=== PATIENT | female | born 2000 | race Caucasian/White ===

== ENCOUNTER 2020-07-23 09:24 | Emergency (ER) | payer OTHER, SELFPAY ==
--- NOTE | 2020-07-23 10:16 | XR_ITS ---
EXAMINATION: LEFT ANKLE, LUMBAR SPINE, RIGHT WRIST, RIGHT ELBOW. CLINICAL INFORMATION: Atraumatic pain COMPARISON: None TECHNIQUE: Three-view lumbar spine. Three-view left ankle. Three-view right elbow. 4 view right hand and wrist. FINDINGS: 3 views of the left ankle do not demonstrate any evidence of acute fracture or dislocation. Ankle mortise appears intact. There is some mild soft tissue swelling about the lateral malleolus. 3 views of the right elbow do not demonstrate any evidence of acute fracture or dislocation. No elbow effusion is seen. No significant degenerative changes noted. 3 views of the lumbar spine demonstrate 5 nonrib bearing lumbar vertebra. No acute fracture, spondylolisthesis, or spondylolysis is seen. Sacroiliac joints unremarkable. There is no evidence of acute fracture or dislocation of the right hand or wrist. No periarticular osteopenia. No erosive changes. No joint space narrowing or spurring. XR/XR lumbar spine 4V min IMPRESSION: No significant abnormality of the left ankle, right elbow, lumbar spine, or right hand and wrist.
--- NOTE | 2020-07-23 10:16 | XR_ITS ---
EXAMINATION: LEFT ANKLE, LUMBAR SPINE, RIGHT WRIST, RIGHT ELBOW. CLINICAL INFORMATION: Atraumatic pain COMPARISON: None TECHNIQUE: Three-view lumbar spine. Three-view left ankle. Three-view right elbow. 4 view right hand and wrist. FINDINGS: 3 views of the left ankle do not demonstrate any evidence of acute fracture or dislocation. Ankle mortise appears intact. There is some mild soft tissue swelling about the lateral malleolus. 3 views of the right elbow do not demonstrate any evidence of acute fracture or dislocation. No elbow effusion is seen. No significant degenerative changes noted. 3 views of the lumbar spine demonstrate 5 nonrib bearing lumbar vertebra. No acute fracture, spondylolisthesis, or spondylolysis is seen. Sacroiliac joints unremarkable. There is no evidence of acute fracture or dislocation of the right hand or wrist. No periarticular osteopenia. No erosive changes. No joint space narrowing or spurring. XR/XR elbow RT min 3V IMPRESSION: No significant abnormality of the left ankle, right elbow, lumbar spine, or right hand and wrist.
--- NOTE | 2020-07-23 10:16 | XR_ITS ---
EXAMINATION: LEFT ANKLE, LUMBAR SPINE, RIGHT WRIST, RIGHT ELBOW. CLINICAL INFORMATION: Atraumatic pain COMPARISON: None TECHNIQUE: Three-view lumbar spine. Three-view left ankle. Three-view right elbow. 4 view right hand and wrist. FINDINGS: 3 views of the left ankle do not demonstrate any evidence of acute fracture or dislocation. Ankle mortise appears intact. There is some mild soft tissue swelling about the lateral malleolus. 3 views of the right elbow do not demonstrate any evidence of acute fracture or dislocation. No elbow effusion is seen. No significant degenerative changes noted. 3 views of the lumbar spine demonstrate 5 nonrib bearing lumbar vertebra. No acute fracture, spondylolisthesis, or spondylolysis is seen. Sacroiliac joints unremarkable. There is no evidence of acute fracture or dislocation of the right hand or wrist. No periarticular osteopenia. No erosive changes. No joint space narrowing or spurring. XR/XR ankle LT min 3V IMPRESSION: No significant abnormality of the left ankle, right elbow, lumbar spine, or right hand and wrist.
--- NOTE | 2020-07-23 10:16 | XR_ITS ---
EXAMINATION: LEFT ANKLE, LUMBAR SPINE, RIGHT WRIST, RIGHT ELBOW. CLINICAL INFORMATION: Atraumatic pain COMPARISON: None TECHNIQUE: Three-view lumbar spine. Three-view left ankle. Three-view right elbow. 4 view right hand and wrist. FINDINGS: 3 views of the left ankle do not demonstrate any evidence of acute fracture or dislocation. Ankle mortise appears intact. There is some mild soft tissue swelling about the lateral malleolus. 3 views of the right elbow do not demonstrate any evidence of acute fracture or dislocation. No elbow effusion is seen. No significant degenerative changes noted. 3 views of the lumbar spine demonstrate 5 nonrib bearing lumbar vertebra. No acute fracture, spondylolisthesis, or spondylolysis is seen. Sacroiliac joints unremarkable. There is no evidence of acute fracture or dislocation of the right hand or wrist. No periarticular osteopenia. No erosive changes. No joint space narrowing or spurring. XR/XR hand wrist RT IMPRESSION: No significant abnormality of the left ankle, right elbow, lumbar spine, or right hand and wrist.
--- NOTE | 2020-07-23 11:07 | ED.GENADULT ---
HPI - General Adult General Chief complaint: General Medical Stated complaint: back,rt arm and hand pain,no inj Time Seen by Provider: 07/23/20 10:06 Source: patient Mode of arrival: ambulatory Limitations: language barrier ( [place]an-speaking) History of Present Illness HPI narrative: 19yoF c No Sig PMHx presenting to the ED c c/o atraumatic lower back pain, right hand pain with intermittent numbness especially when she wakes up in the morning radiating intermittently to her elbow although denies any injuries. 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 Denies any other symptoms complaints or concerns at this time. Related Data Previous Rx's Medication Instructions Recorded cyclobenzaprine 10 mg PO TID PRN #10 tab 07/23/20 naproxen 500 mg PO BID PRN #10 tab 07/23/20 prednisone 40 mg PO DAILY 5 Days #10 tab 07/23/20 Allergies Allergy/AdvReac Type Severity Reaction Status Date / Time No Known Allergies Allergy Verified 07/23/20 10:16 Review of Systems Review of Systems: Constitutional : No trauma, No Weight loss, No Fever, No Chills, ENT/Mouth : No Hearing loss, No Ear Pain, No Nasal Congestion, No Sinus Pain, No Hoarseness, No sore throat, No Rhinorrhea, No Swallowing Difficulty Cardiovascular : No Chest Pain, No SOB Respiratory : No Cough, No Dyspnea Gastrointestinal : No Nausea, No Vomiting, No Diarrhea, No abdominal Pain, No Hematochezia, No Melena Genitourinary : No Dysuria, No Urinary Frequency, No Hematuria, No Urinary or Bowel Incontinence/retention Musculoskeletal : + Back pain, No neck pain, + joint stiffness/pain, No joint swelling Skin : No Skin Lesions, No rash or signs of infection Neuro : No Weakness, No radiation, No Numbness, No Paresthesias, No headache, no loss of bowel or bladder incontinence, no saddle anesthesia Denies history of IV drug usage. Yes all other systems are reviewed and are negative PMFSH Past Medical History Attestation statement: The following information was validated with the patient. Social History Social History Advance Directives: No Advance Directives Information Provided: No Physical Exam Vital Signs: Vital Signs: Last Vital Signs Temp 97.0 F 07/23/20 11:16 Pulse 80 07/23/20 11:16 Resp 18 07/23/20 11:16 BP 118/54 L 07/23/20 11:16 Pulse Ox 99 07/23/20 11:16 Body Mass Index 40.4 vital signs have been reviewed as normal and appeared to be correct. Blood pressure normal. Heart rate normal. Respiration rate normal. Temperature normal. Oxygen saturation normal. Appearance: Alert. Oriented X3. No acute distress. Head: Normal external exam. Normocephalic. Atraumatic. No De La Cruz signs noted. No raccoon eyes noted Eyes: PERRLA. EOMI. Conjunctiva and sclera normal. Eyelids normal. ENT: EAC normal. TM's Normal. Pharynx normal. Uvula midline. Moist mucous membranes. No trismus noted. No drooling noted. No muffled voice noted. Neck: Normal inspection. Neck supple. FROM. No adenopathy. Thyroid Normal. No meningeal signs. No neck mass noted. CVS: Normal heart rate and rhythm. Heart sound normal. No murmurs noted. Pulses normal throughout. Respiratory: No respiratory distress. Painless inspiration. Breath sounds normal. No wheezes/rales/rhonchi noted. Chest nontender. No accessory muscle usage noted or decreased air movement noted. Back: No CVA tenderness. Full range of motion noted. No obvious deformities, or edema. Mild para-spinal muscular tenderness from lumbar region to coccyx. Full ROM in back and lower extremities. 5/5 strength hip extension/flexion, abduction, adduction. Mild Lumbar pain with hip flexion against resistance. Straight leg raise test negative on right; Straight leg raise test negative on left; Reflexes normal ankle and knee bilaterally; EHL motor strength normal bilaterally Skin: Skin warm and dry. Normal skin color. Normal skin turgor. No rashes/lesions/lacerations noted. Extremities: + Tinels's, Prayer's sign and ttp of Right wrist. Patient has full range of motion. No obvious deformities. tender to palpation of lateral aspect of left ankle patient has full range of motion no obvious deformities. Patient has a normal steady gait. No lower extremity edema. All other Extremities exhibit normal range of motion and nontender. Neuro: Oriented X 3. No motor deficit. No sensory deficit. Reflexes normal. Course Course Course Narrative: Pt c likely muscular pain to lower back and carpal tunnel syndrome, but could be herniated disc. Neuro exam shows no deficits. Not c/w AAA/epidural abscess/dissection.No high risk Hx (Incont, fever, immunosupp, recent surgery/LP, coag, signif trauma, wt loss, puls mass, hx/o Ca, TB, or IVDU) to warrant MRI/CT today. Not c/w Pyelo/UTI/kidney stone/spinal fx. Not cauda equina syndrome. DC c meds and f/u. Reevaluation(s) Reevaluation #1: X-rays obtained and negative for any acute processes noted. Will DC home with symptomatic treatment patient reporting that she would like to be tested for COVID although she is not having any symptoms reports that she works at [employer] and at another place that she is exposed to multiple people although again she does not have any symptoms. I told the patient we will test her and to return if any new or worsening symptoms. Patient understands agrees the plan. Time: 12:07 Medical Decision Making Medical Records Medical records reviewed: Yes I reviewed the patient's medical records. Imaging Data lumbar spine/left ankle / right hand wrist: Attestation: I personally reviewed and interpreted this imaging study as follows: Radiologist's impression: IMPRESSION: No significant abnormality of the left ankle, right elbow, lumbar spine, or right hand and wrist. Discharge Plan Discharge Clinical Impression: Lumbar back pain, Muscle strain Left ankle strain Qualifiers: Encounter type: initial encounter Qualified Code(s): S96.912A - Strain of unspecified muscle and tendon at ankle and foot level, left foot, initial encounter Acute carpal tunnel syndrome Qualifiers: Laterality: right Qualified Code(s): G56.01 - Carpal tunnel syndrome, right upper limb Patient Disposition: Home, Self-Care Instructions: Ankle Sprain (ED), Muscle Spasm (ED), Carpal Tunnel Surgery (DC) Additional Instructions: Based on your symptoms and history we have sent a COVID-19. Although your RESULT IS PENDING at this time. RESULTS should return within 72 hours. At this time you will be contacted with either NEGATIVE OR POSITIVE results. -Please wait until we contact you for your results. At this time you will be okay for discharge. Please plan for self quarantine for up to 14 days. Do not expose yourself to others. You may not go to work. If testing does come back negative you may return to activities as long as you are no longer having any symptoms for at least 3 days. Please continue to follow cold instructions and wash your hands frequently. You may take Tylenol as directed on the bottle for pain or fever. Patient seen in the emergency department on 07/23/2020 and should be excused from work until negative test results AND until 72 hours without any symptoms AND at least 10 days have passed since symptoms first appeared or since last exposure to COVID-19 positive patient CDC Guidelines for home isolation: - Stay away from others - WEAR A MASK if you are sick AND STAY HOME - Cover your mouth and nose with a tissue when you cough or sneeze. Dispose of tissues in a lined trash can and wash your hands immediately with soap and water for at least 20 seconds. If soap and water are not available, clean hands with alcohol-based hand special forces engineer sergeant that contains at least 60% alcohol. - Clean your hands often with soap and water for at least 20 seconds - Avoid touching your eyes, nose and mouth with unwashed hands - Do not share dishes, drinking glasses, cups, eating utensils, towels, or bedding with other people in your home. After using these items, wash them thoroughly with soap and water or put in the program director/morning show host. - Clean high-touch surfaces in your isolation area ( sick room and bathroom) every day; let a caregiver clean and disinfect high-touch surfaces in other areas of the home. Clean the area or item with soap and water or another detergent if it is dirty. Then, use a household disinfectant. - Limit contact with pets and animals: If you must care for a pet, wash your hands before and after interacting with them). Prescriptions: New cyclobenzaprine 10 mg tablet 10 mg PO TID PRN (Reason: muscle spasm) Qty: 10 RF: 0 prednisone 20 mg tablet 40 mg PO DAILY 5 Days Qty: 10 RF: 0 naproxen 500 mg tablet 500 mg PO BID PRN (Reason: pain) Qty: 10 RF: 0 Referrals: Physician,Unknown [Primary Care Provider] - 2 days (your pcp) Stand Alone Forms: Work/School Release Print Language: [place]
[2020-07-23 11:16] VITALS: BP 118/54; PULSE 80; RESP 18; TEMP 36.1; O2SAT 99; BMI 40.4
== END 2020-07-23 12:15 | disposition home or self-care (01) ==
PROVIDERS: Physician Assistant Medical; Emergency Provider Emergency Medicine
DX: M54.5 Low back pain (principal); S96.912A Strain of unspecified muscle and tendon at ankle and foot level, left foot, initial encounter; X58.XXXA Exposure to other specified factors, initial encounter; Z20.828 Contact with and (suspected) exposure to other viral communicable diseases; G56.01 Carpal tunnel syndrome, right upper limb; Y93.9 Activity, unspecified; Y92.9 Unspecified place or not applicable; Y99.9 Unspecified external cause status
CPT/HCPCS: 72110; 73080; 73110; 73130; 73610; 99283; U0003

== ENCOUNTER 2020-09-04 14:59 | Outpatient (REF) | payer OTHER, SELFPAY ==
[2020-09-04 16:37] LABS: MANUAL DIFF FLAG NO
[2020-09-04 16:40] LABS: Basophils Percent Auto 0.4 % (0-2); Eosinophils Absolute Auto 0.2 X10*3/uL (0.0-0.4); Eosinophils Percent Auto 2.9 % (0-4); Hematocrit 42.6 % (37-47); Hemoglobin 13.8 g/dl (12.0-16.0); Imm Gran Abs Auto 0.01 X10*3/uL (0.00-0.03); Imm Gran Pct Auto 0.1 % (0.0-0.4); Lymphocytes Absolute Auto 2.9 X10*3/uL (1.2-4.9); Lymphocytes Percent Auto 42.4 % (20-40); Mean Corpuscular HGB Conc 32.4 g/dl (31.0-35.0); Mean Corpuscular Hemoglobin 28.2 pg (27.0-33.0); Mean Corpuscular Volume 87.1 fL (80-98); Mean Platelet Volume 10.4 fL (9.4-12.3); Monocytes Absolute Auto 0.4 X10*3/uL (0.1-1.2); Monocytes Percent Auto 6.3 % (2-11); Neutrophils Absolute Auto 3.3 X10*3/uL (2.0-8.3); Neutrophils Percent Auto 47.9 % (45-73); Platelet Count 398 X10*3/uL (160-400); Red Blood Count 4.89 X10*6/uL (4.20-5.50); Red Cell Distribution Width 12.9 % (11.0-16.0); White Blood Count 6.8 X10*3/uL (4.8-10.8)
[2020-09-04 17:31] LABS: Alanine Aminotransferase 22 U/L (0-31); Albumin Level 4.3 g/dL (3.5-5.0); Alkaline Phosphatase 54 U/L (39-117); Anion Gap 15 (12-20); Aspartate Amino Transferase 23 U/L (5-31); Bilirubin Total 0.4 mg/dL (0.0-1.0); Blood Urea Nitrogen 13 mg/dL (9-16); Calcium 9.1 mg/dL (8.4-10.2); Carbon Dioxide 24 mmol/L (22-29); Chloride 104 mmol/L (96-108); Cholesterol 203 mg/dL; Estimated Glomerular Filt Rate > 60; Glucose Fasting 83 mg/dL (60-99); HDL Cholesterol 41 mg/dL; LDL Cholesterol Calculated 141 mg/dl; Potassium 4.2 mmol/l (3.3-5.1); Sodium 139 mmol/L (135-145); Total Protein 7.9 g/dL (6.5-8.0); Triglycerides 109 mg/dL
[2020-09-04 17:43] LABS: TSH reflex Free T4 0.67 mIU/mL (0.32-4.0); Vitamin D 25-OH Total 18.9 ng/mL (>30)
== END 2020-09-04 15:00 | disposition home or self-care (01) ==
LOC: HO.HMGCLDS 14:59
PROVIDERS: PCP Internal Medicine; Visit Provider Internal Medicine
DX: Z00.01 Encounter for general adult medical examination with abnormal findings (principal); N64.89 Other specified disorders of breast; E66.01 Morbid (severe) obesity due to excess calories
CPT/HCPCS: 36415; 80053; 80061; 82306; 84443; 85025

== ENCOUNTER → 2020-11-26 10:53 | Outpatient (BNVA) | payer OTHER, SELFPAY | PROVIDERS: PCP Internal Medicine; Visit Provider Dietitian, Registered | DX: E66.01 Morbid (severe) obesity due to excess calories (principal) | CPT/HCPCS: 97802 ==

== ENCOUNTER → 2020-12-24 08:49 | Outpatient (BNVA) | payer OTHER, SELFPAY | PROVIDERS: PCP Internal Medicine; Visit Provider Dietitian, Registered | DX: E66.01 Morbid (severe) obesity due to excess calories (principal) | CPT/HCPCS: 97803 ==

== ENCOUNTER → 2021-01-28 09:51 | Outpatient (BNVA) | payer OTHER, SELFPAY | PROVIDERS: PCP Internal Medicine; Visit Provider Dietitian, Registered | DX: E66.01 Morbid (severe) obesity due to excess calories (principal); Z68.41 Body mass index [BMI] 40.0-44.9, adult | CPT/HCPCS: 97803 ==

== ENCOUNTER → 2021-02-25 12:36 | Outpatient (BNVA) | payer OTHER, SELFPAY | PROVIDERS: PCP Internal Medicine; Visit Provider Dietitian, Registered | DX: E66.01 Morbid (severe) obesity due to excess calories (principal); Z68.38 Body mass index [BMI] 38.0-38.9, adult | CPT/HCPCS: 97803 ==

== ENCOUNTER 2021-05-06 03:53 | Emergency (ER) | payer OTHER, SELFPAY ==
--- NOTE | ~2021-05-06 | CT_ITS ---
EXAMINATION: CT ABDOMEN AND PELVIS WITHOUT CONTRAST CLINICAL INFORMATION: Trauma to upper abdomen COMPARISON: None TECHNIQUE: Multidetector volumetric imaging was performed from the superior aspect of the liver through the pubic symphysis. Sagittal and coronal reformatted images were obtained on the technologist's workstation. This CT examination was performed using dose optimization techniques as appropriate, variously including the following: *Automated exposure control *Adjustment of mA and/or kV according to patient size (this includes techniques or standardized protocols for targeted exams where dose is matched to indication/reason for exam; i.e. extremities or head) *Use of iterative reconstruction technique DLP: 826 mGy-cm FINDINGS: LUNG BASES: The visualized lung bases are unremarkable. LIVER, GALLBLADDER, AND BILIARY TREE: The liver is normal in size, shape, and attenuation. No focal hepatic lesion or biliary ductal dilatation is present. The gallbladder appears partially contracted. PANCREAS: Unremarkable. SPLEEN: Unremarkable. ADRENAL GLANDS: Unremarkable. KIDNEYS AND URETERS: The kidneys are normal in size, shape, and attenuation. No hydronephrosis, hydroureter, or calculi seen. No perinephric stranding. BLADDER: Nearly empty and not well evaluated. GASTROINTESTINAL TRACT: The small and large bowel are unremarkable. The appendix is unremarkable. No free fluid or free air is seen. ABDOMINAL WALL: No significant hernia is appreciated. LYMPH NODES: Normal. VASCULAR: Unremarkable. PELVIC VISCERA: There is suggestion of a nabothian cyst. OSSEOUS STRUCTURES: Unremarkable. CT/CT abdomen pelvis wo con IMPRESSION: No acute findings identified in the abdomen/pelvis.
[2021-05-06 04:02] VITALS: BP 105/55; PULSE 70; RESP 16; TEMP 35.8; O2SAT 99; BMI 39.9
--- NOTE | 2021-05-06 04:30 | ED.ABDPAIN ---
HPI - Abdominal Pain General Chief Complaint: Abdominal Pain Stated Complaint: abd pain Time Seen by Provider: 05/06/21 04:28 Source: patient and family (Spouse) Mode of arrival: ambulatory Limitations: no limitations History of Present Illness HPI narrative: 20-year-old female came in for evaluation of abdominal pain after heavy box fell on her abdomen at work, patient is complaining of mostly upper abdominal pain, no nausea no vomiting, no dizziness. No other injuries pain has been constant described as dull aching pain, moderate 7/10, movement aggravating the pain, nothing relieves the pain, no other associated symptoms. Related Data Previous Rx's Medication Instructions Recorded naproxen 500 mg tablet 500 mg PO BID PRN #10 tab 07/23/20 cholecalciferol (vitamin D3) 1,250 1,250 mcg PO QWEEK 90 Days #13 cap 09/05/20 mcg (50,000 unit) capsule Allergies Allergy/AdvReac Type Severity Reaction Status Date / Time No Known Allergies Allergy Verified 09/09/20 23:44 Review of Systems Review of Systems All other systems are reviewed and are negative Constitutional: Reports as per HPI and Reports no additional constitutional complaints Eyes: Reports as per HPI and Reports no additional eye complaints Reports system reviewed and no additional complaints, except as documented Cardiovascular: Reports as per HPI and Reports no additional cardiovascular complaints Respiratory: Reports as per HPI and Reports no additional respiratory complaints Gastrointestinal: Reports as per HPI and Reports no additional gastrointestinal complaints Genitourinary: Reports no additional female genitourinary complaints Musculoskeletal: Reports no additional musculoskeletal complaints Skin/Breast: Reports system reviewed and no additional complaints, except as docu Psychiatric: Reports no additional psychiatric complaints Endocrine: Reports no additional endocrine complaints Hematologic/Lymphatic: Reports no additional hematologic/lymphatic complaints Allergic/Immunologic: Reports no additional allergic/immunologic complaints Reports system reviewed and no additional complaints, except as documented and Reports Abnormal speech present Physical Exam Vital Signs: Vital Signs: Last Vital Signs Temp 96.5 F L 05/06/21 04:02 Pulse 70 05/06/21 04:02 Resp 16 05/06/21 04:02 BP 105/55 L 05/06/21 04:02 Pulse Ox 99 05/06/21 04:02 Body Mass Index 39.9 Vital signs have been reviewed as appeared to be correct. Blood pressure normal. Heart rate normal. Respiration rate normal. Temperature normal. Oxygen saturation normal. Appearance: Alert. Oriented X3. No acute distress. Head: Normal external exam. Normocephalic. Atraumatic. No De La Cruz signs noted. No raccoon eyes noted Eyes: PERRLA. EOMI. Conjunctiva and sclera normal. Eyelids normal. ENT: TM's Normal. Pharynx normal. Uvula midline. Moist mucous membranes. No trismus noted. No drooling noted. No muffled voice noted. Neck: Normal inspection. Neck supple. FROM. No adenopathy. Thyroid Normal. No meningeal signs. No neck mass noted. CVS: Normal heart rate and rhythm. Heart sound normal. No murmurs noted. Pulses normal throughout. Respiratory: No respiratory distress. Painless inspiration. Breath sounds normal. No wheezes/rales/rhonchi noted. Chest nontender. No accessory muscle usage noted or decreased air movement noted. Abdomen: Soft, epigastric tenderness noon, no rebound, no guarding, no ecchymosis. Bowel sounds normal in all 4 quadrants. No distention noted. No organomegaly noted. No visible injury noted. Back: No CVA tenderness. Full range of motion noted. Skin: Skin warm and dry. Normal skin color. Normal skin turgor. No rashes/lesions/lacerations noted. Extremities: No lower extremity edema. Extremities exhibit normal range of motion. Extremities nontender. Neuro: Oriented X 3. Cranial nerve exam: II-XII are grossly intact No motor deficit. No sensory deficit. Reflexes normal. Course Course Course Narrative: Assessment and plan. 20-year-old female came in for evaluation of abdominal pain after abdominal trauma at work, CT of the abdomen pelvis show no intra-abdominal hematoma, patient was instructed to take Tylenol if needed for pain. MDM - Abdominal Pain Lab Data Attestation: I reviewed the patient's lab results. Labs: Lab Results 05/06/21 05/06/21 Range/Units 04:34 04:34 Urine Color YELLOW Urine Appearance CLEAR Urine pH 6.0 (5.0-8.0) Ur Specific [place] >= 1.030 H (1.005-1.025) Urine Protein NEG (NEG-TRACE) MG/DL Urine Glucose (UA) NEG (NEG) MG/DL Urine Ketones NEG (NEG) MG/DL Urine Blood NEG (NEG) Urine Nitrite NEG (NEG) Ur Leukocyte Esterase NEG (NEG) Urine Test NEGATIVE (NEGATIVE) Imaging Data CT scan - abdomen: Radiologist's impression: No acute finding identified. Discharge Plan Discharge Clinical Impression: Abdominal pain Qualifiers: Abdominal location: upper abdomen, unspecified Qualified Code(s): R10.10 - Upper abdominal pain, unspecified Abdominal trauma Qualifiers: Encounter type: initial encounter Qualified Code(s): S39.91XA - Unspecified injury of abdomen, initial encounter Patient Disposition: Home, Self-Care Instructions: Blunt Abdominal Injury (ED) Prescriptions: No Action cholecalciferol (vitamin D3) 1,250 mcg (50,000 unit) capsule 1,250 mcg PO QWEEK 90 Days Qty: 13 RF: 0 naproxen 500 mg tablet 500 mg PO BID PRN (Reason: pain) Qty: 10 RF: 0 Referrals: Physician,Unknown [Primary Care Provider] - 2 days Stand Alone Forms: Work/School Release PMFSH Past Medical History Medical History Breast asymmetry in female Large breasts Lumbago Morbid obesity Vitamin D deficiency Family History Family History Father Diabetes Hypertension Paternal Grandfather Hypertension Mother Hypertension Asthma Hyperparathyroidism Hypothyroid Bipolar disorder Social History Social History Alcohol intake: current Substance Use Type: Marijuana Advance Directives: No
[2021-05-06 04:40] LABS: Appearance Urine CLEAR; Color Urine YELLOW; Glucose Urine UA NEG (NEG); Leukocyte Esterase Urine NEG (NEG); Nitrite Urine NEG (NEG); Specific Gravity - Urine >= 1.030 (1.005-1.025); Urine Blood NEG (NEG); Urine Ketones NEG (NEG); Urine Protein NEG (NEG-TRACE)
[2021-05-06 04:42] LABS: UPreg QC Valid YES; Urine Pregnancy NEGATIVE (NEGATIVE)
== END 2021-05-06 07:00 | disposition home or self-care (01) ==
LOC: HO.ED 04:55
PROVIDERS: Emergency Provider Emergency Medicine
DX: S39.91XA Unspecified injury of abdomen, initial encounter (principal); R10.10 Upper abdominal pain, unspecified; F12.90 Cannabis use, unspecified, uncomplicated; Y29.XXXA Contact with blunt object, undetermined intent, initial encounter; Y93.9 Activity, unspecified; Y92.9 Unspecified place or not applicable; Y99.9 Unspecified external cause status; Z79.899 Other long term (current) drug therapy
CPT/HCPCS: 74176; 81003; 81025; 99283; 99284

== ENCOUNTER 2021-08-16 11:56 | Emergency (ER) | payer OTHER, SELFPAY ==
[2021-08-16 12:35] LABS: COVID-19 Test Positive (Negative); IDNOW Serial# 08D9AD1C
--- NOTE | 2021-08-16 12:39 | ED_ITS ---
HPI - URI/Sore Throat General Stated Complaint: cough/fever/body pain Time Seen by Provider: 08/16/21 12:38 Source: patient Mode of arrival: ambulatory Limitations: no limitations History of Present Illness HPI Narrative: This is a 20-year-old female no known medical history presenting to the emergency department with fever, cough, body aches, nasal congestion X1 week. She has been taking NyQuil for symptoms and Tylenol. She reports that multiple family members at home are sick with similar symptoms. Patient is not vaccinated MD elicited complaint: fever, cough, nasal congestion and other (Body aches) Onset (ago): week(s) (1) Consistency: constant Severity: moderate Able to tolerate fluids by mouth: Yes Exacerbating factors: nothing Relieving factors: nothing Context: sick contacts (Multiple family members at home.) Associated symptoms: fever and nasal congestion Treatments prior to arrival: none Related Data Previous Rx's Medication Instructions Recorded naproxen 500 mg tablet 500 mg PO BID PRN #10 tab 07/23/20 cholecalciferol (vitamin D3) 1,250 1,250 mcg PO QWEEK 90 Days #13 cap 09/05/20 mcg (50,000 unit) capsule Allergies Allergy/AdvReac Type Severity Reaction Status Date / Time No Known Allergies Allergy Verified 08/16/21 12:48 Review of Systems Review of Systems: Constitutional : positive Fever, positive Chills, positive fatigue, positive Malaise ENT/Mouth : No sore throat, No runny nose Eyes: No Discharge Cardiovascular : No Chest Pain, No SOB Respiratory : No Cough, No Sputum Gastrointestinal : No Nausea, No Vomiting, No Diarrhea Genitourinary : No Dysuria, No Urinary Frequency Musculoskeletal : positive Myalgia Skin : No rash Neuro : No Headache Yes all other systems are reviewed and are negative [facility] Past Medical History Attestation statement: The following information was validated with the patient. Source: old records reviewed and nursing notes reviewed Medical History Breast asymmetry in female Large breasts Lumbago Morbid obesity Vitamin D deficiency Family History Family History Father Diabetes Hypertension Paternal Grandfather Hypertension Mother Hypertension Asthma Hyperparathyroidism Hypothyroid Bipolar disorder Social History Social History Alcohol intake: current Substance Use Type: Marijuana Physical Exam Vital Signs: Vital Signs: VSS Appearance: Alert.? Oriented X3.? No acute distress.? Head: Normocephalic, atraumatic, no step-offs or deformities Eyes: Pupils equal, round and reactive to light.? ENT: Pharynx normal.? Neck: Normal inspection.? Neck supple.? CVS: Normal heart rate and rhythm.? Pulses normal.? Respiratory: No respiratory distress.? Breath sounds normal.? Abdomen: Soft and nontender.? Skin: Skin warm and dry.? Normal skin color.? Normal skin turgor.? Extremities: No lower extremity edema.? No calf ttp. 5/5 strength to bilateral upper and lower extremities Back: No midline tenderness, no C-spine tenderness, full range of motion, no CVA tenderness bilaterally Neuro: Oriented X 3.? No motor deficit.? No sensory deficit. Course Reevaluation(s) Reevaluation #1: Patient is noted to be COVID positive, which is likely contributing to patient's symptoms. At this time I feel is the patient is safe for discharge home. I have given her strict return precautions. Have advised her to return with new or worsening symptoms and I have outlined them on her discharge. Comfortable discharge Time: 12:43 MDM - URI/Sore Throat MDM Narrative Medical decision making narrative: 1242 20-year-old female no known medical history presents to the emergency department with COVID like symptoms x1 week. Patient is not vaccinated. Patient is not a smoker. Physical examination benign. Vital signs stable. Saturating well on room air. Even after ambulation. Plan at this time is to obtain a COVID test. Medical Records Attestation: I reviewed the patient's medical records. Lab Data Attestation: I reviewed the patient's lab results. Labs: Lab Results 08/16/21 Range/Units 12:17 COVID-19 ([facility]) Positive A (Negative) COVID-19 Clin Com See Note Critical Care Time Critical Care Time Critical Care Time: No Discharge Plan Discharge Clinical Impression: COVID-19 Patient Disposition: Home, Self-Care Instructions: COVID-19 (Coronavirus Disease 2019) (ED) Additional Instructions: Take your medications as prescribed. If you were prescribed antibiotics today, it is important that you take your medication to their entirety, do not skip any doses, do not finish them early. Today you tested positive for COVID-19. Take Ibuprofen or Tylenol as needed for fevers or body aches. Quarantine for 7 days and ensure you wear a mask. After 7 days you should wear a mask for 3 days after that. Practice social distancing and good hand hygiene. Drink plenty of fluids. Follow-up with your primary care provider this week. Return to the emergency department with new or worsening symptoms. In case of emergency call 911 You can purchase a pulse oximeter from your local pharmacy or grocery store, and monitor your oxygen saturation if it goes below 94% you should return to the emergency department for further evaluation. Prescriptions: No Action cholecalciferol (vitamin D3) 1,250 mcg (50,000 unit) capsule 1,250 mcg PO QWEEK 90 Days Qty: 13 RF: 0 naproxen 500 mg tablet 500 mg PO BID PRN (Reason: pain) Qty: 10 RF: 0 Referrals: Physician,Unknown J [Primary Care Provider] - 2 days Stand Alone Forms: Work/School Release
[2021-08-16 12:48] VITALS: BP 113/65; PULSE 109; RESP 18; TEMP 36.8; O2SAT 100; BMI 39.0
== END 2021-08-16 13:25 | disposition home or self-care (01) ==
LOC: HO.ED 13:08
PROVIDERS: Emergency Provider Emergency Medicine
DX: U07.1 COVID-19 (principal); F12.90 Cannabis use, unspecified, uncomplicated
CPT/HCPCS: 36415; 87635; 99282; 99283

== ENCOUNTER 2021-08-19 05:38 | Emergency (ER) | payer OTHER, SELFPAY ==
--- NOTE | ~2021-08-19 | XR_ITS ---
EXAMINATION: XR CHEST CLINICAL INFORMATION: Dyspnea COMPARISON: None TECHNIQUE: Frontal view of the chest was obtained. FINDINGS: Lung volumes are symmetric. There is patchy airspace opacity in the right upper lung and possibly at the right base. No evidence of pneumothorax or significant pleural effusion. The cardiomediastinal contour is unremarkable. No acute osseous findings are seen. XR/XR chest 1V IMPRESSION: Patchy right lung airspace opacity suspicious for pneumonia. Radiographic followup after treatment/resolution of symptoms is recommended.
[2021-08-19 05:51] VITALS: BP 109/68; PULSE 104; RESP 18; TEMP 37; O2SAT 97; BMI 40.4
--- NOTE | 2021-08-19 08:13 | ED_ITS ---
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 Patient tested positive for COVID on 08/16/2021, patient has been coughing and slight difficulty breathing,, patient has been self quarantine, no recent sick contact, otherwise no fever, no chills. Related Data Previous Rx's Medication Instructions Recorded naproxen 500 mg tablet 500 mg PO BID PRN #10 tab 07/23/20 cholecalciferol (vitamin D3) 1,250 1,250 mcg PO QWEEK 90 Days #13 cap 09/05/20 mcg (50,000 unit) capsule azithromycin 500 mg tablet 500 mg PO DAILY 5 Days #5 tab 08/19/21 (Zithromax) Allergies Allergy/AdvReac Type Severity Reaction Status Date / Time No Known Allergies Allergy Verified 08/19/21 05:51 Review of Systems Review of Systems: All other systems are reviewed and are negative Constitutional: Reports as per HPI and Reports no additional constitutional complaints Eyes: Reports as per HPI and Reports no additional eye complaints Reports system reviewed and no additional complaints, except as documented Cardiovascular: Reports as per HPI and Reports no additional cardiovascular complaints Respiratory: Reports as per HPI and Reports no additional respiratory complaints Gastrointestinal: Reports as per HPI and Reports no additional gastrointestinal complaints Genitourinary: Reports no additional female genitourinary complaints Musculoskeletal: Reports no additional musculoskeletal complaints Skin/Breast: Reports system reviewed and no additional complaints, except as docu Psychiatric: Reports no additional psychiatric complaints Endocrine: Reports no additional endocrine complaints Hematologic/Lymphatic: Reports no additional hematologic/lymphatic complaints Allergic/Immunologic: Reports no additional allergic/immunologic complaints Reports system reviewed and no additional complaints, except as documented and Reports Abnormal speech present [facility] Past Medical History Medical History Breast asymmetry in female Large breasts Lumbago Morbid obesity Vitamin D deficiency Family History Family History Father Diabetes Hypertension Paternal Grandfather Hypertension Mother Hypertension Asthma Hyperparathyroidism Hypothyroid Bipolar disorder Social History Social History Alcohol intake: current Substance Use Type: Marijuana Advance Directives: No Advance Directives Information Provided: Yes Physical Exam Vital Signs: Vital Signs: Last Vital Signs Temp 98.6 F 08/19/21 05:51 Pulse 104 H 08/19/21 05:51 Resp 18 08/19/21 05:51 BP 109/68 08/19/21 05:51 Pulse Ox 97 08/19/21 05:51 BMI result Body Mass Index 40.4 Vital signs have been reviewed as appeared to be correct. Blood pressure normal. Heart rate elevated. Respiration rate normal. Temperature normal. Oxygen saturation normal. Appearance: Alert. Oriented X3. No acute distress. Head: Normal external exam. Normocephalic. Atraumatic. No De La Cruz signs noted. No raccoon eyes noted Eyes: PERRLA. EOMI. Conjunctiva and sclera normal. Eyelids normal. ENT: TM's Normal. Pharynx normal. Uvula midline. Moist mucous membranes. No trismus noted. No drooling noted. No muffled voice noted. Neck: Normal inspection. Neck supple. FROM. No adenopathy. Thyroid Normal. No meningeal signs. No neck mass noted. CVS: Normal heart rate and rhythm. Heart sound normal. No murmurs noted. Pulses normal throughout. Respiratory: No respiratory distress. Painless inspiration. Breath sounds normal. No wheezes/rales/rhonchi noted. Chest nontender. No accessory muscle usage noted or decreased air movement noted. Abdomen: Soft and nontender. Bowel sounds normal in all 4 quadrants. No distention noted. No organomegaly noted. No visible injury noted. Back: No CVA tenderness. Full range of motion noted. Skin: Skin warm and dry. Normal skin color. Normal skin turgor. No rashes/lesions/lacerations noted. Extremities: No lower extremity edema. Extremities exhibit normal range of motion. Extremities nontender. Neuro: Oriented X 3. Cranial nerve exam: II-XII are grossly intact No motor deficit. No sensory deficit. Reflexes normal. Course Course Course Narrative: Assessment and plan. 20-year-old female came in for evaluation of shortness of breath and coughing, patient tested positive for COVID, and chest x-ray showed right lower lung pneumonia. Patient do not meet criteria for SIRS. Start the patient on Zithromax and follow up with her PCP. MDM - SOB/Dyspnea Medical Records Attestation: I reviewed the patient's medical records. Lab Data Attestation: I reviewed the patient's lab results. Result diagrams: 08/19/21 08:28 08/19/21 08:28 Labs: Lab Results 08/19/21 08/19/21 08/19/21 Range/Units 08:28 08:28 08:28 WBC 4.0 L (4.8-10.8) X10*3/uL RBC 5.22 (4.20-5.50) X10*6/uL Hgb 14.6 (12.0-16.0) g/dl Hct 44.4 (37.0-47.0) % MCV 85.1 (80.0-98.0) fL MCH 28.0 (27.0-33.0) pg MCHC 32.9 (31.0-35.0) g/dl RDW 12.6 (11.0-16.0) % Plt Count 258 (160-400) X10*3/uL MPV 10.2 (9.4-12.3) fL Immature Gran % (Auto) 0.3 (0.0-0.4) % Neut % (Auto) 56.9 (45-73) % Lymph % (Auto) 36.8 (20-40) % Stewart % (Auto) 5.5 (2-11) % Eos % (Auto) 0.5 (0-4) % Baso % (Auto) 0.0 (0-2) % Lymph # (Auto) 1.5 (1.2-4.9) X10*3/uL Stewart # (Auto) 0.2 (0.1-1.2) X10*3/uL Eos # (Auto) 0.0 (0.0-0.4) X10*3/uL Baso # (Auto) 0.0 (0.0-0.2) X10*3/uL Abs Immat Gran (auto) 0.01 (0.00-0.03) X10*3/uL Absolute Neuts (auto) 2.3 (2.0-8.3) x10*3/uL Absolute Nucleated RBC 0.000 (0.0-0.012) X10*3/uL Nucleated RBC % (auto) 0.0 (0.0-0.2) /100WBC Sodium 140 (135-145) mmol/L Potassium 3.9 (3.3-5.1) mmol/L Chloride 107 (96-108) mmol/L Carbon Dioxide 27 (22-29) mmol/L Anion Gap 10 L (12-20) BUN 13 (9-16) mg/dL Creatinine 0.75 (0.5-1.4) mg/dL Estim Creat Clear Calc 116.5 Estimated GFR > 60 Random Glucose 105 (60-115) mg/dL Lactic Acid 0.6 (0.5-2.0) mmol/L Calcium 9.1 (8.4-10.2) mg/dL Total Bilirubin 0.4 (0.0-1.0) mg/dL Direct Bilirubin 0.2 (0.0-0.5) mg/dL AST 39 H D (5-31) U/L ALT 76 H (0-31) U/L Alkaline Phosphatase 51 (39-117) U/L Total Protein 8.6 H (6.5-8.0) g/dL Albumin 4.5 (3.5-5.0) g/dL Lipase 30 (8-78) U/L Influenza Type A (PCR) (Negative) Influenza Type B (PCR) (Negative) RSV RNA Qual (PCR) (Negative) SARS-CoV-2 RNA (RT-PCR) (Negative) 08/19/21 Range/Units 08:30 WBC (4.8-10.8) X10*3/uL RBC (4.20-5.50) X10*6/uL Hgb (12.0-16.0) g/dl Hct (37.0-47.0) % MCV (80.0-98.0) fL MCH (27.0-33.0) pg MCHC (31.0-35.0) g/dl RDW (11.0-16.0) % Plt Count (160-400) X10*3/uL MPV (9.4-12.3) fL Immature Gran % (Auto) (0.0-0.4) % Neut % (Auto) (45-73) % Lymph % (Auto) (20-40) % Stewart % (Auto) (2-11) % Eos % (Auto) (0-4) % Baso % (Auto) (0-2) % Lymph # (Auto) (1.2-4.9) X10*3/uL Stewart # (Auto) (0.1-1.2) X10*3/uL Eos # (Auto) (0.0-0.4) X10*3/uL Baso # (Auto) (0.0-0.2) X10*3/uL Abs Immat Gran (auto) (0.00-0.03) X10*3/uL Absolute Neuts (auto) (2.0-8.3) x10*3/uL Absolute Nucleated RBC (0.0-0.012) X10*3/uL Nucleated RBC % (auto) (0.0-0.2) /100WBC Sodium (135-145) mmol/L Potassium (3.3-5.1) mmol/L Chloride (96-108) mmol/L Carbon Dioxide (22-29) mmol/L Anion Gap (12-20) BUN (9-16) mg/dL Creatinine (0.5-1.4) mg/dL Estim Creat Clear Calc Estimated GFR Random Glucose (60-115) mg/dL Lactic Acid (0.5-2.0) mmol/L Calcium (8.4-10.2) mg/dL Total Bilirubin (0.0-1.0) mg/dL Direct Bilirubin (0.0-0.5) mg/dL AST (5-31) U/L ALT (0-31) U/L Alkaline Phosphatase (39-117) U/L Total Protein (6.5-8.0) g/dL Albumin (3.5-5.0) g/dL Lipase (8-78) U/L Influenza Type A (PCR) NEGATIVE (Negative) Influenza Type B (PCR) NEGATIVE (Negative) RSV RNA Qual (PCR) NEGATIVE (Negative) SARS-CoV-2 RNA (RT-PCR) POSITIVE A (Negative) Imaging Data Chest x-ray: Attestation: I personally reviewed and interpreted this imaging study as follows: Radiologist's impression: Patchy right lung airspace opacity suspicious for pneumonia. Radiographic followup after treatment/resolution of symptoms is recommended. Discharge Plan Discharge Clinical Impression: Community acquired pneumonia, COVID-19 virus infection Patient Disposition: Home, Self-Care Instructions: Community Acquired Pneumonia (ED), COVID-19 (Coronavirus Disease 2019) (ED) Additional Instructions: Please continue with self-quarantine, frequent handwashing, wears a face mask at all times. Take the antibiotic prescribed. Prescriptions: New azithromycin [Zithromax] 500 mg tablet 500 mg PO DAILY 5 Days Qty: 5 RF: 0 No Action cholecalciferol (vitamin D3) 1,250 mcg (50,000 unit) capsule 1,250 mcg PO QWEEK 90 Days Qty: 13 RF: 0 naproxen 500 mg tablet 500 mg PO BID PRN (Reason: pain) Qty: 10 RF: 0 Referrals: Physician,Unknown J [Primary Care Provider] - 2 days Stand Alone Forms: Work/School Release
[2021-08-19 08:39] LABS: MANUAL DIFF FLAG NO
[2021-08-19 08:42] LABS: Eosinophils Percent Auto 0.5 % (0-4); Hematocrit 44.4 % (37.0-47.0); Hemoglobin 14.6 g/dl (12.0-16.0); Imm Gran Abs Auto 0.01 X10*3/uL (0.00-0.03); Imm Gran Pct Auto 0.3 % (0.0-0.4); Lymphocytes Absolute Auto 1.5 X10*3/uL (1.2-4.9); Lymphocytes Percent Auto 36.8 % (20-40); Mean Corpuscular HGB Conc 32.9 g/dl (31.0-35.0); Mean Corpuscular Volume 85.1 fL (80.0-98.0); Mean Platelet Volume 10.2 fL (9.4-12.3); Monocytes Absolute Auto 0.2 X10*3/uL (0.1-1.2); Monocytes Percent Auto 5.5 % (2-11); Neutrophils Absolute Auto 2.3 x10*3/uL (2.0-8.3); Neutrophils Percent Auto 56.9 % (45-73); Platelet Count 258 X10*3/uL (160-400); Red Blood Count 5.22 X10*6/uL (4.20-5.50); Red Cell Distribution Width 12.6 % (11.0-16.0)
[2021-08-19 08:50] LABS: Lactic Acid 0.6 mmol/L (0.5-2.0)
[2021-08-19 08:56] LABS: Alanine Aminotransferase 76 U/L (0-31); Albumin Level 4.5 g/dL (3.5-5.0); Alkaline Phosphatase 51 U/L (39-117); Anion Gap 10 (12-20); Aspartate Amino Transferase 39 U/L (5-31); Bilirubin Direct 0.2 mg/dL (0.0-0.5); Bilirubin Total 0.4 mg/dL (0.0-1.0); Blood Urea Nitrogen 13 mg/dL (9-16); Calcium 9.1 mg/dL (8.4-10.2); Carbon Dioxide 27 mmol/L (22-29); Chloride 107 mmol/L (96-108); Creatinine Clr Calc Pharmacy 116.5; Estimated Glomerular Filt Rate > 60; Glucose Random 105 mg/dL (60-115); Lipase 30 U/L (8-78); Potassium 3.9 mmol/L (3.3-5.1); Sodium 140 mmol/L (135-145); Total Protein 8.6 g/dL (6.5-8.0)
[2021-08-19 09:22] LABS: Influenza A PCR NEGATIVE (Negative); Influenza B PCR NEGATIVE (Negative); Resp Syncy Virus RNA Qual PCR NEGATIVE (Negative); SARS COV2 PCR INHOUSE POSITIVE (Negative)
[2021-08-19] MEDS: 0.9 % Sodium Chloride 1,000 ML 999 ML IV (09:22)
[2021-08-19] MEDS: Azithromycin 500 MG in 0.9 % Sodium Chloride 250 ML 125 MG IV (09:22)
[2021-08-19 10:00] VITALS: BP 134/70; PULSE 78; RESP 19; TEMP 37.2; O2SAT 96
--- NOTE | 2021-08-19 10:52 | PC.NURSE ---
pt ambulated to bathroom and back to room 30 ft without any difficulty or dyspnea. speaking in full sentences, drinking po fluids.
== END 2021-08-19 11:19 | disposition home or self-care (01) ==
PROVIDERS: Emergency Provider Emergency Medicine
DX: U07.1 COVID-19 (principal); J12.82 Pneumonia due to coronavirus disease 2019; R06.02 Shortness of breath
CPT/HCPCS: 0241U; 71045; 80048; 80076; 83605; 83690; 85025; 87040; 96361; 96365; 96366; 99284; J0456

== ENCOUNTER 2021-10-29 21:47 | Emergency (ER) | payer OTHER, SELFPAY ==
[2021-10-29 21:55] VITALS: BP 118/58; PULSE 80; RESP 16; TEMP 36.8; O2SAT 100; BMI 41.3
--- NOTE | 2021-10-29 23:00 | ED.GENADULT ---
HPI - General Adult General Chief complaint: Extremity Problem Stated complaint: rt arm numbness and pain Time Seen by Provider: 10/29/21 23:00 Source: patient Mode of arrival: ambulatory Limitations: no limitations History of Present Illness HPI narrative: Patient is a 21 year old female presenting to the emergency department today with right arm pain. Patient states that she has a history of carpal tunnel in her right wrist and now it is flaring up because of her new job. Patient states that she has not seen an orthopedist for this in awhile. Patient denies any dizziness, lightheadedness, abdominal pain, nausea, vomiting, fever, chills, blurry vision, double vision, loss of vision, chest pain, difficulty breathing, shortness of breath, back pain, night sweats, pain with urination, increased urinary frequency, increased urinary urgency, blood in her urine or stool, syncope or a near syncopal episode, recent trauma or falls, bowel incontinence, bladder incontinence, bowel retention, bladder retention, or any other complaints at this time. Onset (ago): year(s) Radiation: non-radiation Severity: mild Severity scale (1-10): 3 Quality: dull Pain Consistency: intermittent Relieving factors: none Exacerbating factors: movement Associated symptoms: denies other symptoms Treatments prior to arrival: none Related Data Previous Rx's Medication Instructions Recorded naproxen 500 mg tablet 500 mg PO BID PRN #10 tab 07/23/20 cholecalciferol (vitamin D3) 1,250 1,250 mcg PO QWEEK 90 Days #13 cap 09/05/20 mcg (50,000 unit) capsule azithromycin 500 mg tablet 500 mg PO DAILY 5 Days #5 tab 08/19/21 (Zithromax) Allergies Allergy/AdvReac Type Severity Reaction Status Date / Time No Known Allergies Allergy Verified 08/19/21 05:51 Review of Systems Constitutional: Constitutional: Reports no additional constitutional complaints, Denies chills, Denies fever(s) and Denies night sweats Eyes: Eyes: Reports no additional eye complaints, Denies blurry vision, Denies change in vision, Denies diplopia, Denies eye discharge, Denies loss of vision and Denies eye pain ENT: Denies dizziness Cardiovascular: Cardiovascular: Reports no additional cardiovascular complaints, Denies chest pain, Denies lightheadedness, Denies Loss of Consciousness and Denies dyspnea Respiratory: Respiratory: Reports no additional respiratory complaints and Denies dyspnea Gastrointestinal: Gastrointestinal: Reports no additional gastrointestinal complaints, Denies abdominal pain, Denies melena, Denies hematochezia, Denies change in bowel habits and Denies change in stool character Genitourinary: Genitourinary: Denies hematuria, Denies urinary frequency, Denies dysuria, Denies urinary incontinence, Denies urinary hesitancy and Denies urinary urgency Musculoskeletal: Musculoskeletal: Reports no additional musculoskeletal complaints, Denies numbness and Denies tingling Neurologic: Denies dizziness, Denies loss of vision, Denies numbness and Denies tingling Psychiatric: Psychiatric: Reports no additional psychiatric complaints Endocrine: Endocrine: Reports no additional endocrine complaints Hematologic/Lymphatic: Hematologic/Lymphatic: Reports no additional hematologic/lymphatic complaints Allergic/Immunologic: Allergic/Immunologic: Reports no additional allergic/immunologic complaints PMFSH Past Medical History Attestation statement: The following information was validated with the patient. Source: old records reviewed Medical History Breast asymmetry in female Large breasts Lumbago Morbid obesity Vitamin D deficiency Family History Family History Father Diabetes Hypertension Paternal Grandfather Hypertension Mother Hypertension Asthma Hyperparathyroidism Hypothyroid Bipolar disorder Social History Social History Alcohol intake: current Substance Use Type: Marijuana Advance Directives: No Advance Directives Information Provided: No Patient : No Physical Exam ED Vital Signs: Vital Signs - 24 hr 10/29/21 21:55 Temperature 98.3 F Pulse Rate 80 Respiratory Rate 16 Blood Pressure 118/58 L Pulse Oximetry 100 BMI result Body Mass Index 41.3 Const General: cooperative, no acute distress, alert and awake Nutritional Appearance: well nourished Orientation/consciousness: patient oriented x3 Limitations: no limitations HENMT Head: Yes normal to inspection and Yes atraumatic Ears: hearing grossly normal bilaterally and external ears normal General nose exam: Normal external nose present, no nasal discharge noted and no epistaxis Face and sinus: Yes normal facial exam, No abrasion and No laceration Mouth: Normal oral and palatal mucosa present, no drooling and no muffled voice Eyes General: appearance normal, both eyes and all related structures Periorbital: periorbital findings normal Eyelids: Yes eyelids normal Conjunctivae: conjunctivae normal Pupils: Equal, round and reactive pupils present EOM: EOMs intact bilaterally Neck Neck: Yes normal visual inspection, Yes full ROM and Yes no lymphadenopathy Chest Chest palpation & inspection: normal inspection of the chest Resp Effort & Inspection: normal respiratory effort and able to speak in complete sentences Auscultation: clear to auscultation bilaterally Cardio Rate: regular rate Rhythm: regular rhythm GI Inspection: Yes normal to inspection Neuro General: patient oriented x3 and moves all extremities Cranial nerves: Yes Equal, round and reactive pupils present Cognition (Neuro): normal cognition Motor exam (neuro): 5/5 motor strength present throughout Sensory Exam: Normal double simultaneous stimulation for sensation Coordination: [id number] test normal Extrem General: Yes normal to inspection, Yes full ROM and Yes capillary refill normal Psych Appearance: grossly normal Mental Status: mental status grossly normal Affect: normal affect Attitude: cooperative Thought process: Normal thought process present Thought content: Normal thought content present Insight: Good insight present (Psych) Medical Decision Making MDM Narrative Medical decision making narrative: Patient is a 21 year old female presenting to the emergency department today with right wrist pain. Patient's physical exam was unremarkable. I explained my physical exam findings as well as all test results to the patient. I answered all questions asked by the patient. I stressed the importance of the patient taking her medication as prescribed. I stressed the importance of the patient following up with her primary care provider and an orthopedist. I stressed the importance of the patient returning to the emergency department immediately if her symptoms were to worsen or if she were to develop any dizziness, shortness of breath, difficulty breathing, chest pain, blurry vision, loss of vision, nausea, vomiting, abdominal pain, fever, chills, back pain, or any other complaints. Patient verbalized agreement and understanding with this treatment plan and discharge. Differential Diagnosis Differential Diagnosis: chronic wrist pain, carpal tunnel syndrome Medical Records Medical records reviewed: Yes I reviewed the patient's medical records. Discharge Plan Discharge Clinical Impression: Carpal tunnel syndrome Patient Disposition: Home, Self-Care Instructions: Paresthesia (ED) Additional Instructions: Call to schedule a follow up appointment with an Orthopedic provider. Follow up with your primary care provider. Return to the emergency department immediately if your symptoms worsen or if you develop any dizziness, shortness of breath, difficulty breathing, chest pain, blurry vision, loss of vision, nausea, vomiting, abdominal pain, fever, chills, back pain, or any other complaints. Prescriptions: No Action cholecalciferol (vitamin D3) 1,250 mcg (50,000 unit) capsule 1,250 mcg PO QWEEK 90 Days Qty: 13 0RF naproxen 500 mg tablet 500 mg PO BID PRN (Reason: pain) Qty: 10 0RF azithromycin [Zithromax] 500 mg tablet 500 mg PO DAILY 5 Days Qty: 5 0RF Referrals: Po,Iona Haile MD [Primary Care Provider] - 2 days Annamarie Robles MD [Physician] - 2 days Stand Alone Forms: Work/School Release Print Language: [place]
== END 2021-10-30 00:04 | disposition home or self-care (01) ==
PROVIDERS: Emergency Provider Internal Medicine; PCP Internal Medicine
DX: G56.01 Carpal tunnel syndrome, right upper limb (principal); M79.601 Pain in right arm
CPT/HCPCS: 99283

== ENCOUNTER 2022-04-23 05:41 | Emergency (ER) | payer OTHER, SELFPAY ==
--- NOTE | ~2022-04-23 | XR_ITS ---
EXAMINATION: XR CHEST CLINICAL INFORMATION: Covid positive. . COMPARISON: Chest x-ray August 19, 2021 TECHNIQUE: Frontal view of the chest was obtained. FINDINGS: Cardiac silhouette is normal in size. The lungs are well aerated. There is no lobar consolidation. No pleural effusion or pneumothorax. XR/XR chest 1V IMPRESSION: No acute pulmonary pathology.
[2022-04-23 06:01] VITALS: BP 107/64; PULSE 104; RESP 18; TEMP 37.2; O2SAT 97; BMI 43.7
[2022-04-23 06:23] LABS: COVID-19 Test Positive (Negative); IDNOW Serial# 16C4AD1C
[2022-04-23 06:30] LABS: Influenza A Negative (Negative); Influenza B2 Negative (Negative)
[2022-04-23] MEDS: Acetaminophen 325 MG TABLET 650 MG PO (08:38)
--- NOTE | 2022-04-23 08:51 | ED_ITS ---
HPI - General Adult General Chief complaint: General Medical Stated complaint: Flu like symptoms Time Seen by Provider: 04/23/22 08:05 Source: patient Mode of arrival: ambulatory History of Present Illness HPI narrative: 21-year-old female with a past medical history a morbid obesity, vitamin D deficiency, at 17.5 weeks gestation, presenting to the ED complaining of rhinorrhea, nasal congestion, cough since yesterday. Reports intermittently coughing up phlegm. Denies known fever, chills, SOB, CP, abdominal pain, nausea/vomiting, vaginal bleeding/discharge, dysuria. Denies any current related complications Onset (ago): day(s) Related Data Previous Rx's Medication Instructions Recorded naproxen 500 mg tablet 500 mg PO BID PRN pain #10 tabs 07/23/20 cholecalciferol (vitamin D3) 1,250 1,250 mcg PO QWEEK 90 days #13 caps 09/05/20 mcg (50,000 unit) capsule azithromycin 500 mg tablet 500 mg PO DAILY 5 days #5 tabs 08/19/21 (Zithromax) Allergies Allergy/AdvReac Type Severity Reaction Status Date / Time No Known Allergies Allergy Verified 04/23/22 05:58 Review of Systems Review of Systems: Constitutional: No Fever, No Chills, No Fatigue, No Malaise ENT/Mouth: No Ear Pain, + Nasal Congestion, + Sinus Pain, No Hoarseness, + sore throat, + Rhinorrhea, No Swallowing Difficulty Eyes: No Eye Pain, No Swelling, No Redness, No Foreign Body, No Discharge, No Vision Changes Cardiovascular: No Chest Pain, No SOB, No Dyspnea on Exertion, No Orthopnea, No Edema, No Palpitations Respiratory: No Cough, No Sputum, No Wheezing, No Smoke Exposure, No Dyspnea Gastrointestinal: No Nausea, No Vomiting, No Diarrhea, No Constipation, No Abdominal pain, no vaginal bleeding, no vaginal discharge Genitourinary: No irregular bleeding, No Dysuria, No Urinary Frequency, No Hematuria, No Urinary Incontinence/retention, No Urgency, No Flank Pain Musculoskeletal: No joint pain, No Myalgias, No Joint Swelling Skin: No Skin Lesions, No rash Neuro: No Weakness, No Numbness, No Paresthesias, No Dizziness, No Headache Yes all other systems are reviewed and are negative Constitutional: Constitutional: Reports as per [facility] Past Medical History Attestation statement: The following information was validated with the patient. Medical History Breast asymmetry in female Large breasts Lumbago Morbid obesity Vitamin D deficiency Family History Family History Father Diabetes Hypertension Paternal Grandfather Hypertension Mother Hypertension Asthma Hyperparathyroidism Hypothyroid Bipolar disorder Social History Social History Alcohol intake: current Substance Use Type: Marijuana Advance Directives: No Advance Directives Information Provided: No Physical Exam ED Vital Signs: Vital Signs - 24 hr 04/23/22 06:01 Temperature 99.0 F Pulse Rate 104 H Respiratory Rate 18 Blood Pressure 107/64 Pulse Oximetry 97 Oxygen Delivery Method Room Air BMI result Body Mass Index 43.7 Const General: cooperative, healthy appearing and no acute distress Orientation/consciousness: patient oriented x3 Limitations: no limitations HENMT Head: Yes normal to inspection and Yes atraumatic Ears: hearing grossly normal bilaterally General nose exam: Normal external nose present Face and sinus: Yes normal facial exam Mouth: Normal oral and palatal mucosa present Throat: Yes posterior oropharynx normal, Yes tonsils normal, Yes uvula midline, No peritonsillar mass, No uvula laterally displaced and No uvular edema Eyes General: appearance normal, both eyes and all related structures EOM: EOMs intact bilaterally Neck Neck: Yes normal visual inspection and Yes no meningeal signs Resp Effort & Inspection: normal respiratory effort, no respiratory distress and no stridor Auscultation: clear to auscultation bilaterally, no crackles, no rales, no rhonchi and no wheezes Cardio Rate: regular rate Heart sounds: S1 normal heart sound present and S2 normal heart sound present GI Inspection: Yes normal to inspection Palpation (GI): Soft to palpation, nontender, no guarding and not rigid General: Yes no CVA tenderness Back/Spine/Pelvis Back: no CVA tenderness Skin Rashes: no rashes Wounds: no wounds Neuro General: patient oriented x3, tone normal and no meningeal signs Gait exam (Neuro): Normal gait present Extrem General: Yes normal to inspection, Yes no pedal edema and Yes no calf tenderness Course Course Course Narrative: -patient is COVID-19 positive > referral made to [facility] for monoclonal antibodies - heart tones 146 XR chest 1V IMPRESSION: No acute pulmonary pathology. Results discussed with patient including worrisome signs and symptoms and strict return precautions, and when to return to the emergency department. They pedrito balized understanding and feel safe for discharge at this time. -[id number]--[place] [facility] [place] Decision Making MDM Narrative Medical decision making narrative: 21-year-old female with a past medical history a morbid obesity, vitamin D deficiency, at 17.5 weeks gestation, presenting to the ED complaining of rhinorrhea, nasal congestion, cough since yesterday. On exam low-grade fever 99.0, tachycardic to 104 likely from fever, NAD, nontoxic appearing, lungs CTA, abdomen soft/nontender. Denies related complaints. Concern for viral illness including COVID-19 vs pneumonia vs pharyngitis. Low suspicion for ACS/PE Plan: COVID-19 testing, CXR Medical Records Medical records reviewed: Yes I reviewed the patient's medical records. Lab Data Lab results reviewed: Yes I reviewed the patient's lab results. Labs: Lab Results 04/23/22 04/23/22 Range/Units 06:11 06:11 COVID-19 (KORIN) Positive A (Negative) COVID-19 Clin Com See Note Influenza Type A (CHRISTOPHER) Negative (Negative) Influenza Type B (CHRISTOPHER) Negative (Negative) Influenza A & B Note See Note Discharge Plan Discharge Clinical Impression: COVID-19 Patient Disposition: Home, Self-Care Instructions: COVID-19 (Coronavirus Disease 2019) (ED) Additional Instructions: YOU HAVE COVID 19, PLEASE CALL YOUR OBGYN TO MAKE THEM AWARE. WE REFER G FOR MONOCLONAL ANTIBODIES, THEY SHOULD CALL YOU TO MAKE AN APPOINTMENT At this time you will be okay for discharge. Please self isolate for 5-10 days. Do not expose yourself to others. You may not go to work or school. Please continue to follow cold instructions and wash your hands frequently. You may take Tylenol / Motrin as directed on the bottle for pain or fever. If you have constant or persistent shortness of breath, fever unresolved with medications, chest pain, or your unable to eat or drink please return to the ED CDC Guidelines for home isolation: - Stay away from others - WEAR A MASK if you are sick AND STAY HOME - Cover your mouth and nose with a tissue when you cough or sneeze. Dispose of tissues in a lined trash can and wash your hands immediately with soap and water for at least 20 seconds. If soap and water are not available, clean hands with alcohol-based hand marketing sales representative that contains at least 60% alcohol. - Clean your hands often with soap and water for at least 20 seconds - Avoid touching your eyes, nose and mouth with unwashed hands - Do not share dishes, drinking glasses, cups, eating utensils, towels, or bedding with other people in your home. After using these items, wash them thoroughly with soap and water or put in the semiconductor dies loader. - Clean high-touch surfaces in your isolation area ( sick room and bathroom) every day; let a caregiver clean and disinfect high-touch surfaces in other areas of the home. Clean the area or item with soap and water or another detergent if it is dirty. Then, use a household disinfectant. - Limit contact with pets and animals: If you must care for a pet, wash your hands before and after interacting with them) TIENE KONSTANTIN 18, POR FAVOR LLAME [facility] PARA INFORMARLO. REMITIMOS G PARA ANTICUERPOS MONOCLONALES, DEBEN LLAMAR PARA HACER RUSSEL En swati momento estar? renetta para el zurdo. A?slese por 5-10 d?as. No te expongas a los dem?s. Es posible que no vaya al trabajo ni a la escuela. Contin?e siguiendo las instrucciones en fr?o y l?vese las alfredo con frecuencia. Puede tess Tylenol/Motrin pau se indica en el frasco para el dolor o la fiebre. Si tiene dificultad para respirar clementina o persistente, fiebre que no se resuelve con medicamentos, dolor en el pecho o no puede comer o beber, regrese al servicio de urgencias. Pautas de los CDC para el aislamiento en el hogar: - Mant?ngase alejado de los dem?s. - USE ALLISON MASCARILLA si est? enfermo Y QU?DESE EN CASA - C?brase la boca y la nariz con un pa?uelo desechable al toser o estornudar. Deseche los pa?uelos en un bote de basura forrado y l?vese las alfredo inmediatamente con agua y jab?n lorna al menos 20 segundos. Si no hay agua y jab?n disponibles, l?vese las alfredo con un desinfectante para alfredo a base de alcohol que contenga al menos un 60 % de alcohol. - L?vese las alfredo con frecuencia con agua y jab?n lorna al menos 20 segundos. - Evite tocarse los ojos, la nariz y la boca con las alfredo sin megan - No comparta platos, vasos, tazas, utensilios para comer, toallas o ropa de cama con otras personas en rendon hogar. Despu?s de usar estos art?culos, l?velos renetta con agua y jab?n o col?quelos en el lavavajias. - Limpie las superficies de alto contacto en rendon ?cheo de aislamiento ( cuarto de enfermos y ba?o) todos los d?as; permita que un cuidador limpie y desinfecte las superficies de alto contacto en otras ?reas del hogar. Limpie el ?cheo o art?culo con agua y jab?n u otro detergente si est? sucio. Luego, use un desinfectante dom?stico. - Limite el contacto con mascotas y animales: si debe cuidar allison mascota, l?vese las alfredo antes y despu?s de interactuar con ellos) Prescriptions: No Action cholecalciferol (vitamin D3) 1,250 mcg (50,000 unit) capsule 1,250 mcg PO QWEEK 90 Days Qty: 13 0RF naproxen 500 mg tablet 500 mg PO BID PRN (Reason: pain) Qty: 10 0RF azithromycin [Zithromax] 500 mg tablet 500 mg PO DAILY 5 Days Qty: 5 0RF Referrals: Millie Artis MD [Primary Care Provider] - Stand Alone Forms: Work/School Release Print Language: Croatian
[2022-04-23 10:28] VITALS: BP 104/54; PULSE 104; RESP 16; TEMP 36.8; O2SAT 100
== END 2022-04-23 11:05 | disposition home or self-care (01) ==
PROVIDERS: Emergency Provider Emergency Medicine Emergency Medical Services; PCP Internal Medicine
DX: O98.512 Other viral diseases complicating pregnancy, second trimester (principal); U07.1 COVID-19; Z3A.17 17 weeks gestation of pregnancy
CPT/HCPCS: 71045; 87502; 87635; 99283; 99284

== ENCOUNTER 2022-11-21 07:35 | Emergency (ER) | payer OTHER, SELFPAY ==
[2022-11-21 07:54] VITALS: BP 119/65; PULSE 116; RESP 16; TEMP 37.4; O2SAT 98; BMI 44.2
[2022-11-21 08:20] LABS: Appearance Urine Clear; Color Urine Yellow; Glucose Urine UA Negative (Negative); Leukocyte Esterase Urine Trace (Negative); Nitrite Urine Negative (Negative); PH 6.5 (5.0-9.0); UMIC TRIGGER UACC YES; Urine Blood Negative (Negative); Urine Ketones Negative (Negative); Urine Protein Negative (Neg-Trace)
[2022-11-21 08:21] LABS: UPreg QC Valid YES; Urine Pregnancy NEGATIVE (NEGATIVE)
[2022-11-21 08:22] LABS: Bacteria Urine None Seen (None Seen); Hyaline Casts Urine 0-2 /LPF (0-2); RBC Urine 0-2 /HPF (0-2); Squamous Epithelial Cell Urine 0-2 /HPF (0-2); WBC Urine 0-5 /HPF (0-5)
[2022-11-21 08:25] LABS: IDNOW Serial# 08D9AD1C; Strep A Nucleic Acid Negative (Negative)
[2022-11-21 08:45] LABS: COVID-19 Test Negative (Negative); IDNOW Serial# 08D9AD1C
--- NOTE | 2022-11-21 09:06 | ED_ITS ---
HPI - General Adult General Chief complaint: General Medical Stated complaint: sore throat back pain Time Seen by Provider: 11/21/22 08:54 Source: patient Mode of arrival: ambulatory Limitations: no limitations History of Present Illness HPI narrative: Patient otherwise healthy complaining of low back pain sore throat since last night no injury no urinary come few loose bowel no fever no chills no cough or shortness of breath Related Data Previous Rx's Medication Instructions Recorded naproxen 500 mg tablet 500 mg PO BID PRN pain #10 tabs 07/23/20 cholecalciferol (vitamin D3) 1,250 1,250 mcg PO QWEEK 90 days #13 caps 09/05/20 mcg (50,000 unit) capsule azithromycin 500 mg tablet 500 mg PO DAILY 5 days #5 tabs 08/19/21 (Zithromax) ibuprofen 600 mg tablet 600 mg PO Q6H PRN fever or pain 11/21/22 #30 tabs Allergies Allergy/AdvReac Type Severity Reaction Status Date / Time No Known Allergies Allergy Verified 04/23/22 05:58 Review of Systems Review of Systems: Yes all other systems are reviewed and are negative [facility] Past Medical History Medical History Breast asymmetry in female Large breasts Lumbago Morbid obesity Vitamin D deficiency Family History Family History Father Diabetes Hypertension Paternal Grandfather Hypertension Mother Hypertension Asthma Hyperparathyroidism Hypothyroid Bipolar disorder Social History Social History Alcohol intake: unknown Smoked in Last 30 Days: No Use of substances other than those prescribed or required for medical reasons: Unknown Substance Use Type: Marijuana Advance Directives: No Advance Directives Information Provided: Yes Patient : No Physical Exam ED Vital Signs: Vital Signs - 24 hr 11/21/22 07:54 Temperature 99.4 F Pulse Rate 116 H Respiratory Rate 16 Blood Pressure 119/65 Pulse Oximetry 98 Oxygen Delivery Method Room Air BMI result Body Mass Index 44.2 Appearance: Alert. Oriented X3. No acute distress. Eyes: PERRLA, No Nystagmus ENT: Pharynx normal. Oral Mucosa moist upper cervical lymph node+ Neck: Normal inspection. Neck supple. CVS: Normal heart rate and rhythm. Pulses normal. Respiratory: No respiratory distress. Equal air entry bilateral, no wheezing/rales/rhonchi Abdomen: Soft and nontender. Bowel sounds are present, no mass palpable, no CVA tenderness back: Diffuse tenderness no focal bony tenderness or deformity Skin: Skin warm and dry. Normal skin color. Normal skin turgor. Extremities: No lower extremity edema. No calf tenderness SLR negative Neuro: Oriented X 3. No motor deficit. No sensory deficit. Medications Administered Discontinued Medications Generic Name Dose Route Start Last Admin Trade Name Freq PRN Reason Stop Dose Admin Ibuprofen 600 mg 11/21/22 09:07 11/21/22 09:16 Ibuprofen 600 Mg Tablet PO 11/21/22 09:08 600 mg ONCE ONE Administration Medical Decision Making Medical Decision Making [facility] Narrative: Patient with minor sore throat but examination is benign strep is negative COVID negative will discharge patient home on ibuprofen advised to drink plenty of fluids Lab Data Labs: Lab Results 11/21/22 11/21/22 11/21/22 Range/Units 08:04 08:04 08:04 Urine Color Yellow Urine Appearance Clear Urine pH 6.5 (5.0-9.0) Ur Specific [place] 1.020 (1.005-1.025) Urine Protein Negative (Neg-Trace) mg/dL Urine Glucose (UA) Negative (Negative) mg/dL Urine Ketones Negative (Negative) mg/dL Urine Blood Negative (Negative) Urine Nitrite Negative (Negative) Ur Leukocyte Esterase Trace H (Negative) Urine RBC 0-2 (0-2) /HPF Urine WBC 0-5 (0-5) /HPF Ur Squamous Epith Cells 0-2 (0-2) /HPF Urine Bacteria None Seen (None Seen) Hyaline Casts 0-2 (0-2) /LPF Urine Test NEGATIVE (NEGATIVE) COVID-19 (KORIN) Negative (Negative) COVID-19 Clin Com See Note S. pyogenes GrpA CHRISTOPHER (Negative) 11/21/22 Range/Units 08:05 Urine Color Urine Appearance Urine pH (5.0-9.0) Ur Specific [place] (1.005-1.025) Urine Protein (Neg-Trace) mg/dL Urine Glucose (UA) (Negative) mg/dL Urine Ketones (Negative) mg/dL Urine Blood (Negative) Urine Nitrite (Negative) Ur Leukocyte Esterase (Negative) Urine RBC (0-2) /HPF Urine WBC (0-5) /HPF Ur Squamous Epith Cells (0-2) /HPF Urine Bacteria (None Seen) Hyaline Casts (0-2) /LPF Urine Test (NEGATIVE) COVID-19 (KORIN) (Negative) COVID-19 Clin Com S. pyogenes GrpA CHRISTOPHER Negative (Negative) Discharge Plan Discharge Clinical Impression: Viral URI, Back pain Patient Disposition: Home, Self-Care Instructions: Upper Respiratory Infection (ED), Back Pain (ED) Additional Instructions: Drink plenty of fluids Ibuprofen for pain Strep is negative and urine is normal Prescriptions: New ibuprofen 600 mg tablet 600 mg PO Q6H PRN (Reason: fever or pain) Qty: 30 0RF No Action cholecalciferol (vitamin D3) 1,250 mcg (50,000 unit) capsule 1,250 mcg PO QWEEK 90 Days Qty: 13 0RF naproxen 500 mg tablet 500 mg PO BID PRN (Reason: pain) Qty: 10 0RF azithromycin [Zithromax] 500 mg tablet 500 mg PO DAILY 5 Days Qty: 5 0RF Interventions: ED Discharge Assessment Last Done: 11/21/22 09:22 Discharge Date/Time: 11/21/22 09:23
[2022-11-21] MEDS: Ibuprofen 600 MG TABLET PO (09:16)
== END 2022-11-21 09:23 | disposition home or self-care (01) ==
PROVIDERS: Emergency Provider Internal Medicine; PCP Internal Medicine
DX: J06.9 Acute upper respiratory infection, unspecified (principal); M54.50 Low back pain, unspecified; Z20.822 Contact with and (suspected) exposure to COVID-19; Z20.828 Contact with and (suspected) exposure to other viral communicable diseases; Z79.899 Other long term (current) drug therapy
CPT/HCPCS: 81001; 81025; 87635; 87651; 99283; 99284

== ENCOUNTER → 2022-11-26 14:26 | Outpatient (BNVA) | payer OTHER, SELFPAY | PROVIDERS: PCP Internal Medicine; Referring Provider Internal Medicine; Visit Provider Surgery | DX: L98.9 Disorder of the skin and subcutaneous tissue, unspecified (principal) | CPT/HCPCS: 99202 ==

== ENCOUNTER 2022-11-28 15:37 | Outpatient (REF) | payer OTHER, SELFPAY | END 2022-11-28 15:38 | disposition home or self-care (01) | LOC: HO.LNP 15:37 | PROVIDERS: PCP Internal Medicine; Visit Provider Surgery | DX: L98.9 Disorder of the skin and subcutaneous tissue, unspecified (principal) | CPT/HCPCS: 11406; 88304; 88305 ==

== ENCOUNTER → 2022-12-11 15:09 | Outpatient (BNVA) | payer OTHER, SELFPAY | PROVIDERS: PCP Internal Medicine; Visit Provider Surgery | DX: Z48.02 Encounter for removal of sutures (principal); L02.415 Cutaneous abscess of right lower limb | CPT/HCPCS: 99212 ==

== ENCOUNTER 2023-01-21 08:02 | Emergency (ER) | payer OTHER, SELFPAY ==
[2023-01-21 08:07] VITALS: BP 121/80; PULSE 83; RESP 16; TEMP 36.9; O2SAT 96; BMI 45.8
[2023-01-21 08:31] LABS: IDNOW Serial# 08D9AD1C
[2023-01-21 08:32] LABS: Strep A Nucleic Acid Negative (Negative)
[2023-01-21 08:36] LABS: COVID-19 Test Negative (Negative); IDNOW Serial# BCCEAD1C
--- NOTE | 2023-01-21 10:00 | ED_ITS ---
HPI - General Adult General Chief complaint: General Medical Stated complaint: body aches, sore throat Time Seen by Provider: 01/21/23 09:17 Source: patient and RN notes reviewed Mode of arrival: ambulatory Limitations: no limitations History of Present Illness HPI narrative: This is a 22-year-old female presenting to the emergency department with complaints of body aches, sore throat, congestion, and subjective fevers over the last 3 days. Patient reports that her child just tested positive for COVID. Patient admits to having subjective fevers last night, denies taking her temperature. She denies any headache, dizziness, ear pain, sore throat, chest pain, shortness of breath, palpitations, abdominal pain, nausea, vomiting, or diarrhea. She denies taking any medications to treat her current symptoms. No other complaints or concerns at this time. MD complaint: Body aches, sore throat, congestion Onset (ago): day(s) Radiation: non-radiation Relieving factors: none Exacerbating factors: none Associated symptoms: denies other symptoms Treatments prior to arrival: none Related Data Home Medications Medication Instructions Recorded Confirmed prednisolone 5 mg tablet 10 mg PO DAILY 11/24/22 11/26/22 Previous Rx's Medication Instructions Recorded ibuprofen 600 mg tablet 600 mg PO Q6H PRN fever or pain 11/21/22 #30 tabs acetaminophen 500 mg tablet 500 mg PO Q6H PRN fever or pain 01/21/23 (Tylenol Extra Strength) #30 tabs benzonatate 100 mg capsule 100 mg PO BID PRN cough #20 caps 01/21/23 ibuprofen 600 mg tablet 600 mg PO Q6H PRN fever or pain 01/21/23 #30 tabs Allergies Allergy/AdvReac Type Severity Reaction Status Date / Time No Known Allergies Allergy Verified 12/11/22 15:21 Review of Systems Review of Systems: Constitutional: No Weight loss, + subjective Fever, No Chills ENT/Mouth: No Ear Pain, No Nasal Congestion, No Sinus Pain, No Hoarseness, + sore throat, No Rhinorrhea, No Swallowing Difficulty Cardiovascular: No Chest Pain, No SOB Respiratory: +Cough, No Sputum, No Wheezing Gastrointestinal: No Nausea, No Vomiting, No Diarrhea, No Constipation, No Abdominal pain Genitourinary: No Dysuria, No Urinary Frequency, No Hematuria, No Urinary Incontinence/retention, No Urgency, No Flank Pain Musculoskeletal: No joint pain, +Myalgias, No Joint Swelling Skin: No Skin Lesions, No rash Neuro: No Weakness, No Numbness, No Paresthesias Yes all other systems are reviewed and are negative Constitutional: Constitutional: Reports as per [facility] Past Medical History Attestation statement: The following information was validated with the patient. Medical History Breast asymmetry in female delivery delivered Large breasts Lumbago Morbid obesity Skin lesion of lower extremity Vitamin D deficiency Surgical History History of History of excision of lesion Family History Family History Father Diabetes Hypertension Paternal Grandfather Hypertension Mother Hypertension Asthma Hyperparathyroidism Hypothyroid Bipolar disorder Social History Social History Alcohol intake: unknown Patient Tobacco Use Status: Never used Tobacco Substance Use Type: Marijuana Advance Directives: No Advance Directives Information Provided: Yes Physical Exam ED Vital Signs: Vital Signs - 24 hr 01/21/23 08:07 Temperature 98.5 F Pulse Rate 83 Respiratory Rate 16 Blood Pressure 121/80 Pulse Oximetry 96 Oxygen Delivery Method Room Air BMI result Body Mass Index 45.8 Const General: cooperative, comfortable and no acute distress Orientation/consciousness: patient oriented x3 Limitations: no limitations HENMT Head: Yes normal to inspection, Yes normocephalic and Yes atraumatic Ears: hearing grossly normal bilaterally and TM's normal bilaterally General nose exam: Normal external nose present Face and sinus: Yes normal facial exam Mouth: Normal oral and palatal mucosa present, oropharynx normal and moist mucous membranes Throat: Yes posterior oropharynx normal Eyes General: appearance normal, both eyes and all related structures Eyelids: Yes eyelids normal Conjunctivae: conjunctivae normal Sclerae: sclerae normal Pupils: Equal, round and reactive pupils present EOM: EOMs intact bilaterally Neck Neck: Yes normal visual inspection, Yes full ROM and Yes no lymphadenopathy Lymphatic: no lymphadenopathy noted Chest Chest palpation & inspection: normal inspection of the chest Resp Effort & Inspection: normal respiratory effort and able to speak in complete sentences Auscultation: clear to auscultation bilaterally, no crackles, no rales, no rhonchi and no wheezes Cardio Rate: regular rate Rhythm: regular rhythm Heart sounds: S1 normal heart sound present and S2 normal heart sound present GI Inspection: Yes normal to inspection Skin General skin exam: no rashes or lesions noted Trauma: no lacerations or abrasions Wounds: no wounds Neuro General: patient oriented x3 and moves all extremities Cranial nerves: Yes Equal, round and reactive pupils present Extrem General: Yes normal to inspection Right upper extremity: normal to inspection Left upper extremity: normal to inspection Right lower extremity: normal to inspection Left lower extremity: normal to inspection Medical Decision Making Medical Decision Making [facility] Narrative: 22-year-old female presenting to the emergency department for evaluation of body aches, sore throat, subjective fevers over the last 3 days. Child has recently tested positive for COVID. Patient was swabbed for COVID and house and was negative today. Patient also swab for strep throat which was also negative. Vital signs are stable, patient is afebrile, nontoxic-appearing. Symptoms likely due to a virus, given good Education on staying well hydrated and treating symptoms symptomatic we. Patient understands and agrees with plan. Given return precautions. Patient stable for discharge. Differential Diagnosis Differential Diagnoses: The differential diagnosis associated with the presentation includes Strep pharyngitis, COVID, viral illness, pneumonia-less likely, sinusitis, upper respiratory infection Lab Data [facility] Lab Attestation statement: I reviewed the patient's lab results. Labs: Lab Results 01/21/23 01/21/23 Range/Units 08:11 08:11 COVID-19 (KORIN) Negative (Negative) COVID-19 Clin Com See Note S. pyogenes GrpA CHRISTOPHER Negative (Negative) External Record Review External record reviewed: Prior outpatient labs Discharge Plan Discharge Clinical Impression: Acute viral syndrome Patient Disposition: Home, Self-Care Instructions: Viral Syndrome (ED) Additional Instructions: You likely have a virus which is contributing to your symptoms. You do not need antibiotics at this time. you tested negative for COVID and strep today. Please drink plenty of fluids get plenty of rest. Take prescribed medications as directed as needed for your symptoms. If any new or worsening symptoms occur including but not limited to chest pain, shortness of breath, palpitations, worsening fevers, please return for re- evaluation. Follow-up with your primary care physician. Prescriptions: New benzonatate 100 mg capsule 100 mg PO BID PRN (Reason: cough) Qty: 20 0RF ibuprofen 600 mg tablet 600 mg PO Q6H PRN (Reason: fever or pain) Qty: 30 0RF acetaminophen [Tylenol Extra Strength] 500 mg tablet 500 mg PO Q6H PRN (Reason: fever or pain) Qty: 30 0RF No Action ibuprofen 600 mg tablet 600 mg PO Q6H PRN (Reason: fever or pain) Qty: 30 0RF prednisolone 5 mg tablet 10 mg PO DAILY Stand Alone Forms: Work/School Release Discharge Date/Time: 01/21/23 10:57
== END 2023-01-21 10:57 | disposition home or self-care (01) ==
LOC: HO.ED 10:10
PROVIDERS: Emergency Provider Internal Medicine; PCP Internal Medicine
DX: B34.9 Viral infection, unspecified (principal); J02.9 Acute pharyngitis, unspecified; Z20.822 Contact with and (suspected) exposure to COVID-19
CPT/HCPCS: 87635; 87651; 99281; 99283

== ENCOUNTER 2023-02-19 06:00 | Emergency (ER) | payer OTHER, SELFPAY ==
[2023-02-19 06:18] VITALS: BP 127/74; PULSE 76; RESP 14; TEMP 36.6; O2SAT 97; BMI 49.3
[2023-02-19 06:31] VITALS: BP 127/74; PULSE 76; RESP 14; TEMP 36.6; O2SAT 97
--- NOTE | 2023-02-19 06:37 | ED.GENADULT ---
HPI - General Adult General Chief complaint: Upper Respiratory Symptoms Stated complaint: flu like symptoms Time Seen by Provider: 02/19/23 06:32 Source: patient and paraprofessional interpreter Mode of arrival: ambulatory Limitations: language barrier History of Present Illness HPI narrative: Patient is a 22 year old assigned female at with no reported medical history presenting to the emergency department today with worsening nasal congestion. Patient states that over the last 3 days she has had worsening nasal congestion. Patient denies any dizziness, lightheadedness, abdominal pain, nausea, vomiting, fever, chills, blurry vision, double vision, loss of vision, chest pain, difficulty breathing, shortness of breath, back pain, night sweats, pain with urination, increased urinary frequency, increased urinary urgency, blood in her urine or stool, syncope or a near syncopal episode, recent trauma or falls, bowel incontinence, bladder incontinence, bowel retention, bladder retention, or any other complaints at this time. Onset (ago): day(s) (3) Radiation: non-radiation Severity: mild Severity scale (1-10): 3 Quality: dull Relieving factors: none Exacerbating factors: none Associated symptoms: denies other symptoms Treatments prior to arrival: none Related Data Home Medications Medication Instructions Recorded Confirmed prednisolone 5 mg tablet 10 mg PO DAILY 11/24/22 11/26/22 Previous Rx's Medication Instructions Recorded ibuprofen 600 mg tablet 600 mg PO Q6H PRN fever or pain 11/21/22 #30 tabs acetaminophen 500 mg tablet 500 mg PO Q6H PRN fever or pain 01/21/23 (Tylenol Extra Strength) #30 tabs benzonatate 100 mg capsule 100 mg PO BID PRN cough #20 caps 01/21/23 ibuprofen 600 mg tablet 600 mg PO Q6H PRN fever or pain 01/21/23 #30 tabs amoxicillin 875 mg-potassium 1 tab PO BID 7 days #14 tabs 02/19/23 clavulanate 125 mg tablet Allergies Allergy/AdvReac Type Severity Reaction Status Date / Time No Known Allergies Allergy Verified 12/11/22 15:21 Review of Systems Constitutional: Constitutional: Reports no additional constitutional complaints, Denies chills, Denies fever(s) and Denies night sweats Eyes: Eyes: Reports no additional eye complaints, Denies blurry vision, Denies change in vision, Denies diplopia, Denies eye discharge, Denies loss of vision and Denies eye pain ENT: Denies dizziness and Reports nasal congestion Cardiovascular: Cardiovascular: Reports no additional cardiovascular complaints, Denies chest pain, Denies lightheadedness, Denies Loss of Consciousness and Denies dyspnea Respiratory: Respiratory: Reports no additional respiratory complaints and Denies dyspnea Gastrointestinal: Gastrointestinal: Reports no additional gastrointestinal complaints, Denies abdominal pain, Denies melena, Denies hematochezia, Denies change in bowel habits and Denies change in stool character Genitourinary: Genitourinary: Denies hematuria, Denies urinary frequency, Denies dysuria, Denies urinary incontinence, Denies urinary hesitancy and Denies urinary urgency Musculoskeletal: Musculoskeletal: Reports no additional musculoskeletal complaints, Denies numbness and Denies tingling Neurologic: Denies dizziness, Denies loss of vision, Denies numbness and Denies tingling Psychiatric: Psychiatric: Reports no additional psychiatric complaints Endocrine: Endocrine: Reports no additional endocrine complaints Hematologic/Lymphatic: Hematologic/Lymphatic: Reports no additional hematologic/lymphatic complaints Allergic/Immunologic: Allergic/Immunologic: Reports no additional allergic/immunologic complaints [facility] Past Medical History Attestation statement: The following information was validated with the patient. Source: old records reviewed and nursing notes reviewed Medical History Breast asymmetry in female delivery delivered Large breasts Lumbago Morbid obesity Skin lesion of lower extremity Vitamin D deficiency Surgical History History of History of excision of lesion Family History Family History Father Diabetes Hypertension Paternal Grandfather Hypertension Mother Hypertension Asthma Hyperparathyroidism Hypothyroid Bipolar disorder Social History Social History Alcohol intake: never Patient Tobacco Use Status: Never used Tobacco Smoked in Last 30 Days: No Use of substances other than those prescribed or required for medical reasons: No Substance Use Type: Marijuana Advance Directives: No Advance Directives Information Provided: No Patient : No Physical Exam ED Vital Signs: Vital Signs - 24 hr 02/19/23 06:18 02/19/23 06:31 02/19/23 06:31 Temperature 97.9 F 97.9 F Pulse Rate 76 76 Respiratory Rate 14 14 Blood Pressure 127/74 127/74 Pulse Oximetry 97 97 97 Oxygen Delivery Method Room Air Room Air Room Air BMI result Body Mass Index 49.3 Const General: cooperative, no acute distress, alert and awake Nutritional Appearance: well nourished Orientation/consciousness: patient oriented x3 Limitations: no limitations HENMT Head: Yes normal to inspection and Yes atraumatic Ears: hearing grossly normal bilaterally and external ears normal General nose exam: Normal external nose present, no nasal discharge noted and no epistaxis Face and sinus: Yes normal facial exam, No abrasion and No laceration Mouth: Normal oral and palatal mucosa present, no drooling and no muffled voice Eyes General: appearance normal, both eyes and all related structures Periorbital: periorbital findings normal Eyelids: Yes eyelids normal Conjunctivae: conjunctivae normal Pupils: Equal, round and reactive pupils present EOM: EOMs intact bilaterally Neck Neck: Yes normal visual inspection, Yes full ROM and Yes no lymphadenopathy Chest Chest palpation & inspection: normal inspection of the chest Resp Effort & Inspection: normal respiratory effort and able to speak in complete sentences Auscultation: clear to auscultation bilaterally GI Inspection: Yes normal to inspection Neuro General: patient oriented x3 and moves all extremities Cranial nerves: Yes Equal, round and reactive pupils present Cognition (Neuro): normal cognition Motor exam (neuro): 5/5 motor strength present throughout Sensory Exam: Normal double simultaneous stimulation for sensation Coordination: [id number] test normal Extrem General: Yes normal to inspection, Yes full ROM and Yes capillary refill normal Psych Appearance: grossly normal Mental Status: mental status grossly normal Affect: normal affect Attitude: cooperative Thought process: Normal thought process present Thought content: Normal thought content present Insight: Good insight present (Psych) Medical Decision Making Medical Decision Making MDM Narrative: Patient is a 22 year old assigned female at with no reported medical history presenting to the emergency department today with nasal congestion. Patient's physical exam was unremarkable. Patient's COVID-19/Influenza/Strep swabs were all negative. I explained my physical exam findings as well as all test results to the patient. I answered all questions asked by the patient. I stressed the importance of the patient taking her medication as prescribed. I stressed the importance of the patient following up with her primary care provider. I stressed the importance of the patient returning to the emergency department immediately if her symptoms were to worsen or if she were to develop any dizziness, shortness of breath, difficulty breathing, chest pain, blurry vision, loss of vision, nausea, vomiting, abdominal pain, fever, chills, back pain, or any other complaints. Patient verbalized agreement and understanding with this treatment plan and discharge. Differential Diagnosis Differential Diagnoses: The differential diagnosis associated with the presentation includes Sinusitis Allergic rhinitis Rhinitis COVID-19 Strep pharyngitis Influenza Admission/Observation Consideration of admission/observation: Escalation of care including admission/observation considered Patient would have been admitted to the hospital had her work up had any findings where hospital admission was appropriate and her clinical presentation warranted hospital admission. Lab Data MDM Lab Attestation statement: I reviewed the patient's lab results. My interpretation of these studies and their corresponding values is that they are grossly normal. Labs: Lab Results 02/19/23 02/19/23 02/19/23 Range/Units 06:50 06:51 06:51 COVID-19 (KORIN) Negative (Negative) COVID-19 Clin Com See Note Influenza Type A (CHRISTOPHER) Negative (Negative) Influenza Type B (CHRISTOPHER) Negative (Negative) Influenza A & B Note See Note S. pyogenes GrpA CHRISTOPHER Negative (Negative) Discharge Plan Discharge Clinical Impression: Sinusitis Patient Disposition: Home, Self-Care Instructions: Sinusitis (ED) Additional Instructions: Follow up with your primary care provider. Return to the emergency department immediately if your symptoms worsen or if you develop any dizziness, shortness of breath, difficulty breathing, chest pain, blurry vision, loss of vision, nausea, vomiting, abdominal pain, fever, chills, back pain, or any other complaints. Chun un seguimiento con rendon proveedor de atenci?n primaria. Regrese al departamento de emergencias de inmediato si dee s?ntomas empeoran o si presenta mareos, falta de aire, dificultad para respirar, dolor de pecho, visi?n borrosa, p?rdida de la visi?n, n?useas, v?mitos, dolor abdominal, fiebre, escalofr?os, dolor de espalda o cualquier otras quejas. Prescriptions: New amoxicillin-pot clavulanate 875-125 mg tablet 1 tab PO BID 7 Days Qty: 14 0RF No Action ibuprofen 600 mg tablet 600 mg PO Q6H PRN (Reason: fever or pain) Qty: 30 0RF benzonatate 100 mg capsule 100 mg PO BID PRN (Reason: cough) Qty: 20 0RF ibuprofen 600 mg tablet 600 mg PO Q6H PRN (Reason: fever or pain) Qty: 30 0RF acetaminophen [Tylenol Extra Strength] 500 mg tablet 500 mg PO Q6H PRN (Reason: fever or pain) Qty: 30 0RF prednisolone 5 mg tablet 10 mg PO DAILY Referrals: [facility] Family Medicine [Provider Group] (Call to establish and follow up with a primary care provider. If you already have a primary care provider, please follow up with them. Llame para establecer y hacer un seguimiento con un proveedor de atenci?n primaria. Si ya tiene un proveedor de atenci?n primaria, chun un seguimiento con ?l.) [facility] [Provider Group] (Call to establish and follow up with a primary care provider. If you already have a primary care provider, please follow up with them. Llame para establecer y hacer un seguimiento con un proveedor de atenci?n primaria. Si ya tiene un proveedor de atenci?n primaria, chun un seguimiento con ?l.) [facility] [Provider Group] (Call to establish and follow up with a primary care provider. If you already have a primary care provider, please follow up with them. Llame para establecer y hacer un seguimiento con un proveedor de atenci?n primaria. Si ya tiene un proveedor de atenci?n primaria, chun un seguimiento con ?l.) Stand Alone Forms: Work/School Release Interventions: ED Discharge Assessment Last Done: 02/19/23 07:55 Discharge Date/Time: 02/19/23 07:56 Print Language: Beninese
== END 2023-02-19 07:56 | disposition home or self-care (01) ==
PROVIDERS: Emergency Provider Emergency Medicine Emergency Medical Services
DX: J32.9 Chronic sinusitis, unspecified (principal); Z20.822 Contact with and (suspected) exposure to COVID-19; E66.9 Obesity, unspecified; Z68.42 Body mass index [BMI] 45.0-49.9, adult; F12.90 Cannabis use, unspecified, uncomplicated
CPT/HCPCS: 87502; 87635; 87651; 99283; 99284

== ENCOUNTER 2023-05-30 09:41 | Outpatient (AMB) | payer OTHER, SELFPAY ==
[2023-05-30 11:37] VITALS: BP 120/68; PULSE 94; O2SAT 97; BMI 50.8
--- NOTE | 2023-05-30 11:37 | AM.OFFWIN_ITS ---
Intake Vital Signs 05/30/23 11:37 Height 4 ft 8 in Weight 226 lb 8 oz BMI 50.8 BP 120/68 Blood Pressure Location Lt brachial Position Sitting Pulse 94 Pulse Source Pulse Oximeter Pulse Oximetry (%) 97 Oxygen Delivery Method Room Air Intake Visit Reasons: EP-Work [phone] Intake Note: Patient is here today for a work physical. Patient Tobacco Use Status: Never used Tobacco Allergies No Known Allergies Allergy (Verified 05/30/23 11:39) Do you need a note to return to daycare/school/sports/work: Yes (Patient has a physical form.) HPI HPI Comments History of Present Illness Details This is a 22-year-old female who presents to the office today for a work physical. 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 This job requires activities such as light housekeeping, shopping, positioning patients, etc. patient denies any chronic medical conditions include hypertension, hyperlipidemia, diabetes mellitus, or pulmonary disease. She denies any chest pain or shortness of breath with exertion. She denies any lightheadedness or dizziness with exertion. She denies any abdominal pain, nausea/vomiting/diarrhea, or dysuria/hematuria or frequency/urgency. [facility] Medical History Breast asymmetry in female delivery delivered Large breasts Lumbago Morbid obesity Skin lesion of lower extremity Vitamin D deficiency Surgical History History of History of excision of lesion Family History Father Diabetes Hypertension Paternal Grandfather Hypertension Mother Hypertension Asthma Hyperparathyroidism Hypothyroid Bipolar disorder Social History Alcohol intake: never Patient Tobacco Use Status: Never used Tobacco Substance Use Type: Marijuana Review of Systems Const All systems reviewed & are unremarkable except as noted in HPI and below Reports no additional complaints Eyes Reports no additional complaints ENT Reports no additional complaints Card Reports no additional complaints Resp Reports no additional complaints GI Reports no additional complaints Reports no additional complaints Musc Reports no additional complaints Skin/Breast Reports system reviewed and no additional complaints, except as documented Neuro Reports no additional complaints Psych Reports no additional complaints Endo Reports no additional complaints Christian/Lymph Reports no additional complaints Aller/Immun Reports no additional complaints Physical Exam Vital Signs: Last Vital Signs Pulse 94 05/30/23 11:37 BP 120/68 05/30/23 11:37 Pulse Ox 97 05/30/23 11:37 Oxygen Delivery Method Room Air 05/30/23 11:37 BMI result Body Mass Index 50.8 Const Other: Vital signs reviewed. Constitutional: Non-toxic appearing. No acute distress. Well-developed and well-nourished. HEENT: Normocephalic and atraumatic. Tympanic membranes without erythema, edema, or bulging bilaterally. External auditory canals without erythema or edema bilaterally. Moist mucous membranes. No pharyngeal erythema or exudates. Skin: Warm and dry. No rashes or lesions noted. Neck: Full and painless range of motion. No cervical lymphadenopathy. Cardio: Regular rate and rhythm. No murmurs, gallops, or rubs. No lower extremity edema. No JVD. Pulmonary: No respiratory distress. No accessory muscle usage. Clear to auscultation bilaterally without wheezing, crackles, or rhonchi. Gastrointestinal: Soft, nontender, and nondistended in all 4 quadrants. Normoactive bowel sounds in all 4 quadrants. Genitourinary: No CVA tenderness. Musculoskeletal: Normal range of motion in joints throughout the body. No deformity or other signs of injury. Neuro: Alert and oriented x4. Cranial nerves 2-12 grossly intact. No focal deficits appreciated. Psych: Normal mood and affect. Office Procedures EKG Details: Normal sinus rhythm at 80 beats per minute, nonspecific T-wave abnormality with T-wave inversions in leads 3 and V1 but otherwise no acute ischemic changes or ST T wave changes. [id number], Complete Assessment & Plan Assessment & Plan (1) Normal physical exam: Code(s): Z00.00 - Encounter for general adult medical examination without abnormal findings Plan: This is a healthy 22-year-old female who presented to the office for a work physical. 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 Patient's physical exam is benign, her vital signs are stable, and patient is overall nontoxic appearing. I believe that patient can perform the activities required for this occupation without difficulty. I have obtained an EKG for baseline monitoring; EKG shows normal sinus rhythm at 68 beats per minute and nonspecific T-wave abnormality with T-wave inversions in leads III and V1. Paperwork was signed. Patient sent home. Orders: Orders AMB EKG-In Office Today Z13.6 - Encounter for screening for cardiovascular disorders Coding Level of Care Code Sports/Work/School Physical Diagnoses Normal physical exam Z00.00 CPT Codes EKG - CPT: 61767-[id number], Complete ([id number])
== END 2023-05-30 12:24 | disposition home or self-care (01) ==
PROVIDERS: PCP Internal Medicine; Visit Provider Physician Assistant Medical
DX: Z02.1 Encounter for pre-employment examination (principal)
CPT/HCPCS: 93000; 99051; 99080

== ENCOUNTER 2023-06-02 11:29 | Emergency (ER) | payer OTHER, SELFPAY | END 2023-06-02 13:15 | disposition left against medical advice (07) | LOC: HO.ED 13:11 | PROVIDERS: Emergency Provider Emergency Medicine; PCP Internal Medicine | DX: R05.9 Cough, unspecified (principal) ==

== ENCOUNTER 2024-06-15 06:09 | Emergency (ER) | payer OTHER, SELFPAY ==
[2024-06-15 06:24] VITALS: BP 115/66; PULSE 102; RESP 18; TEMP 36.5; O2SAT 98; BMI 47.5
--- NOTE | 2024-06-15 06:49 | ED.GENADULT ---
HPI - General Adult General Chief complaint: Upper Respiratory Symptoms Stated complaint: flu like Time Seen by Provider: 06/15/24 06:49 Source: patient Mode of arrival: ambulatory Limitations: no limitations History of Present Illness ED Provider: Yamila Watson PA-C HPI narrative: Patient is a 23 year old assigned female at with no reported medical history presenting to the emergency department today with a cough, congestion, and headache. Patient states that starting yesterday she began to have a cough, congestion, and a headache. Patient denies any dizziness, lightheadedness, abdominal pain, nausea, vomiting, fever, chills, blurry vision, double vision, loss of vision, chest pain, difficulty breathing, shortness of breath, back pain, night sweats, pain with urination, increased urinary frequency, increased urinary urgency, blood in her urine or stool, syncope or a near syncopal episode, recent trauma or falls, bowel incontinence, bladder incontinence, or any other complaints at this time. Onset (ago): day(s) (1) Relieving factors: none Exacerbating factors: none Associated symptoms: cough Treatments prior to arrival: none Related Data Home Medications ?Medication ?Instructions ?Recorded ?Confirmed prednisolone 5 mg tablet 10 mg PO DAILY 11/24/22 11/26/22 Previous Rx's ?Medication ?Instructions ?Recorded ibuprofen 600 mg tablet 600 mg PO Q6H PRN fever or pain 11/21/22 #30 tabs acetaminophen 500 mg tablet 500 mg PO Q6H PRN fever or pain 01/21/23 (Tylenol Extra Strength) #30 tabs benzonatate 100 mg capsule 100 mg PO BID PRN cough #20 caps 01/21/23 ibuprofen 600 mg tablet 600 mg PO Q6H PRN fever or pain 01/21/23 #30 tabs amoxicillin 875 mg-potassium 1 tab PO BID 7 days #14 tabs 02/19/23 clavulanate 125 mg tablet Allergies Allergy/AdvReac Type Severity Reaction Status Date / Time No Known Allergies Allergy Verified 06/15/24 06:25 Review of Systems Constitutional: Constitutional: Reports no additional constitutional complaints, Denies chills, Denies fever(s), Reports headache(s) and Denies night sweats Eyes: Eyes: Reports no additional eye complaints, Denies blurry vision, Denies change in vision, Denies diplopia, Denies eye discharge, Denies loss of vision and Denies eye pain ENT: Denies dizziness, Reports headache(s) and Reports nasal congestion Cardiovascular: Cardiovascular: Reports no additional cardiovascular complaints, Denies chest pain, Denies lightheadedness, Denies Loss of Consciousness and Denies dyspnea Respiratory: Respiratory: Reports no additional respiratory complaints, Reports cough and Denies dyspnea Gastrointestinal: Gastrointestinal: Reports no additional gastrointestinal complaints, Denies abdominal pain, Denies melena, Denies hematochezia, Denies change in bowel habits and Denies change in stool character Genitourinary: Genitourinary: Denies hematuria, Denies urinary frequency, Denies dysuria, Denies urinary incontinence, Denies urinary hesitancy and Denies urinary urgency Musculoskeletal: Musculoskeletal: Reports no additional musculoskeletal complaints, Denies numbness and Denies tingling Neurologic: Denies dizziness, Reports headache(s), Denies loss of vision, Denies numbness and Denies tingling Psychiatric: Psychiatric: Reports no additional psychiatric complaints Endocrine: Endocrine: Reports no additional endocrine complaints Hematologic/Lymphatic: Hematologic/Lymphatic: Reports no additional hematologic/lymphatic complaints Allergic/Immunologic: Allergic/Immunologic: Reports no additional allergic/immunologic complaints [facility] Past Medical History Attestation statement: The following information was validated with the patient. Source: old records reviewed and nursing notes reviewed Medical History Skin lesion of lower extremity delivery delivered Vitamin D deficiency Morbid obesity Lumbago Breast asymmetry in female Large breasts Surgical History History of excision of lesion History of Family History Family History Father Diabetes Hypertension Paternal Grandfather Hypertension Mother Hypertension Asthma Hyperparathyroidism Hypothyroid Bipolar disorder Social History Social History Alcohol intake: never Patient Tobacco Use Status: Never used Tobacco Substance Use Type: Marijuana Advance Directives: No Do you have a plan to hurt others: No Plan Physical Exam ED Vital Signs: Vital Signs - 24 hr 06/15/24 06:24 Temperature 97.7 F Pulse Rate 102 H Respiratory Rate 18 Blood Pressure 115/66 Pulse Oximetry 98 Oxygen Delivery Method Room Air BMI result Body Mass Index 47.5 Const General: cooperative, no acute distress, alert and awake Nutritional Appearance: well nourished Orientation/consciousness: patient oriented x3 Limitations: no limitations HENMT Head: Yes normal to inspection and Yes atraumatic Ears: hearing grossly normal bilaterally and external ears normal General nose exam: Normal external nose present, no nasal discharge noted and no epistaxis Face and sinus: Yes normal facial exam, No abrasion and No laceration Mouth: Normal oral and palatal mucosa present, no drooling and no muffled voice Eyes General: appearance normal, both eyes and all related structures Periorbital: periorbital findings normal Eyelids: Yes eyelids normal Conjunctivae: conjunctivae normal Pupils: Equal, round and reactive pupils present EOM: EOMs intact bilaterally Neck Neck: Yes normal visual inspection, Yes full ROM and Yes no lymphadenopathy Chest Chest palpation & inspection: normal inspection of the chest Resp Effort & Inspection: normal respiratory effort and able to speak in complete sentences GI Inspection: Yes normal to inspection Neuro General: patient oriented x3 and moves all extremities Cranial nerves: Yes Equal, round and reactive pupils present Cognition (Neuro): normal cognition Extrem General: Yes normal to inspection, Yes full ROM and Yes capillary refill normal Psych Appearance: grossly normal Mental Status: mental status grossly normal Affect: normal affect Attitude: cooperative Thought process: Normal thought process present Thought content: Normal thought content present Insight: Good insight present (Psych) Medical Decision Making Medical Decision Making MDM Narrative: Patient is a 23 year old assigned female at with no reported medical history presenting to the emergency department today with a cough, nasal congestion, and a headache. Patient's physical exam was unremarkable. Patient's COVID-19, influenza, and RSV tests were negative. I explained my physical exam findings as well as all test results to the patient. I answered all questions asked by the patient. I stressed the importance of the patient taking her medication as directed (either prescribed or as the over the counter packaging recommends). I stressed the importance of the patient following up with her primary care provider. I stressed the importance of the patient returning to the emergency department immediately if her symptoms were to worsen or if she were to develop any dizziness, shortness of breath, difficulty breathing, chest pain, blurry vision, loss of vision, nausea, vomiting, abdominal pain, fever, chills, back pain, or any other complaints. Patient verbalized agreement and understanding with this treatment plan and discharge. Differential Diagnosis Differential Diagnoses: The differential diagnosis associated with the presentation includes Viral illness Cough Headache COVID-19 Influenza RSV Admission/Observation Consideration of admission/observation: Escalation of care including admission/observation considered Patient would have been admitted to the hospital had her work up had any findings where hospital admission was appropriate and her clinical presentation warranted hospital admission. Lab Data [facility] Lab Attestation statement: I reviewed the patient's lab results. My interpretation of these results are in the [facility] Rationale portion of this note. Labs: Lab Results 06/15/24 Range/Units 06:50 Influenza Type A (PCR) NEGATIVE (Negative) Influenza Type B (PCR) NEGATIVE (Negative) RSV RNA Qual (PCR) NEGATIVE (Negative) SARS-CoV-2 RNA (RT-PCR) NEGATIVE (Negative) Discharge Plan Discharge Clinical Impression: Viral illness Patient Disposition: Home, Self-Care Instructions: Viral Syndrome (ED) Additional Instructions: Follow up with your primary care provider. Return to the emergency department immediately if your symptoms worsen or if you develop any dizziness, shortness of breath, difficulty breathing, chest pain, blurry vision, loss of vision, nausea, vomiting, abdominal pain, fever, chills, back pain, or any other complaints. Prescriptions: No Action ibuprofen 600 mg tablet 600 mg PO Q6H PRN (Reason: fever or pain) Qty: 30 0RF amoxicillin-pot clavulanate 875-125 mg tablet 1 tab PO BID 7 Days Qty: 14 0RF benzonatate 100 mg capsule 100 mg PO BID PRN (Reason: cough) Qty: 20 0RF ibuprofen 600 mg tablet 600 mg PO Q6H PRN (Reason: fever or pain) Qty: 30 0RF acetaminophen [Tylenol Extra Strength] 500 mg tablet 500 mg PO Q6H PRN (Reason: fever or pain) Qty: 30 0RF prednisolone 5 mg tablet 10 mg PO DAILY Referrals: Millie Artis MD [Primary Care Provider] - Stand Alone Forms: Work/School Release Print Language: Irish
[2024-06-15 07:35] LABS: Influenza A PCR NEGATIVE (Negative); Influenza B PCR NEGATIVE (Negative); Resp Syncy Virus RNA Qual PCR NEGATIVE (Negative); SARS COV2 PCR INHOUSE NEGATIVE (Negative)
[2024-06-15 07:54] VITALS: O2SAT 98
[2024-06-15 07:56] VITALS: BP 122/84; PULSE 99; RESP 20; TEMP 36.8; O2SAT 98
== END 2024-06-15 07:56 | disposition home or self-care (01) ==
PROVIDERS: Emergency Provider Emergency Medicine Emergency Medical Services; PCP Internal Medicine
DX: B34.9 Viral infection, unspecified (principal); R05.9 Cough, unspecified; R51.9 Headache, unspecified; R09.89 Other specified symptoms and signs involving the circulatory and respiratory systems; Z03.818 Encounter for observation for suspected exposure to other biological agents ruled out
CPT/HCPCS: 0241U; 99283; 99284

== ENCOUNTER 2024-09-20 06:24 | Emergency (ER) | payer OTHER, SELFPAY ==
--- NOTE | ~2024-09-20 | XR_ITS ---
EXAMINATION: XR CHEST CLINICAL INFORMATION: cough COMPARISON: None available. TECHNIQUE: 2 views of the chest were obtained. FINDINGS: No significant abnormality is noted involving the heart, lungs, mediastinum, bony thorax or soft tissues. XR/XR chest 2V IMPRESSION: Unremarkable chest examination. Electronically signed by: Elliot Guerrero MD 09/20/2024 07:04 AM [facility]
[2024-09-20 06:36] VITALS: BP 107/54; PULSE 86; RESP 20; TEMP 36.7; O2SAT 98; BMI 46.4
[2024-09-20 07:22] LABS: IDNOW Serial# 58CA691E
[2024-09-20 07:23] LABS: Strep A Nucleic Acid Negative (Negative)
[2024-09-20 08:04] LABS: Influenza A PCR NEGATIVE (Negative); Influenza B PCR NEGATIVE (Negative); Resp Syncy Virus RNA Qual PCR NEGATIVE (Negative); SARS COV2 PCR INHOUSE NEGATIVE (Negative)
--- NOTE | 2024-09-20 09:10 | ED_ITS ---
HPI - General Adult General Chief complaint: Upper Respiratory Symptoms Stated complaint: upper respiratory Time Seen by Provider: 09/20/24 09:09 Source: patient Mode of arrival: ambulatory Limitations: no limitations History of Present Illness ED Provider: Yamila Watson PA-C HPI narrative: Patient is a 23 year old assigned female at with no reported medical history presenting to the emergency department today with nasal congestion, cough, sore throat, and right ear pain. Patient states that over the last 4 days she has had a cough, nasal congestion, sore throat, and right ear pain. Patient denies any dizziness, lightheadedness, abdominal pain, nausea, vomiting, fever, chills, blurry vision, double vision, loss of vision, chest pain, difficulty breathing, shortness of breath, back pain, night sweats, pain with urination, increased urinary frequency, increased urinary urgency, blood in her urine or stool, syncope or a near syncopal episode, recent trauma or falls, bowel incontinence, bladder incontinence, or any other complaints at this time. Onset (ago): day(s) (4) Relieving factors: none Exacerbating factors: none Associated symptoms: cough Treatments prior to arrival: other (tylenol with minimal relief) Related Data Home Medications ?Medication ?Instructions ?Recorded ?Confirmed prednisolone 5 mg tablet 10 mg PO DAILY 11/24/22 11/26/22 Previous Rx's ?Medication ?Instructions ?Recorded ibuprofen 600 mg tablet 600 mg PO Q6H PRN fever or pain 11/21/22 #30 tabs acetaminophen 500 mg tablet 500 mg PO Q6H PRN fever or pain 01/21/23 (Tylenol Extra Strength) #30 tabs benzonatate 100 mg capsule 100 mg PO BID PRN cough #20 caps 01/21/23 ibuprofen 600 mg tablet 600 mg PO Q6H PRN fever or pain 01/21/23 #30 tabs amoxicillin 875 mg-potassium 1 tab PO BID 7 days #14 tabs 02/19/23 clavulanate 125 mg tablet Allergies Allergy/AdvReac Type Severity Reaction Status Date / Time No Known Allergies Allergy Verified 09/20/24 06:39 Review of Systems Constitutional: Constitutional: Reports no additional constitutional complaints, Denies chills, Denies fever(s) and Denies night sweats Eyes: Eyes: Reports no additional eye complaints, Denies blurry vision, Denies change in vision, Denies diplopia, Denies eye discharge, Denies loss of vision and Denies eye pain ENT: Denies dizziness, Reports nasal congestion and Reports sore throat Comments: right ear pain Cardiovascular: Cardiovascular: Reports no additional cardiovascular complaints, Denies chest pain, Denies lightheadedness, Denies Loss of Consciousness and Denies dyspnea Respiratory: Respiratory: Reports no additional respiratory complaints, Reports cough and Denies dyspnea Gastrointestinal: Gastrointestinal: Reports no additional gastrointestinal complaints, Denies abdominal pain, Denies melena, Denies hematochezia, Denies change in bowel habits and Denies change in stool character Genitourinary: Genitourinary: Denies hematuria, Denies urinary frequency, Denies dysuria, Denies urinary incontinence, Denies urinary hesitancy and Denies urinary urgency Musculoskeletal: Musculoskeletal: Reports no additional musculoskeletal complaints, Denies numbness and Denies tingling Neurologic: Denies dizziness, Denies loss of vision, Denies numbness and Denies tingling Psychiatric: Psychiatric: Reports no additional psychiatric complaints Endocrine: Endocrine: Reports no additional endocrine complaints Hematologic/Lymphatic: Hematologic/Lymphatic: Reports no additional hematologic/lymphatic complaints Allergic/Immunologic: Allergic/Immunologic: Reports no additional allergic/immunologic complaints [facility] Past Medical History Attestation statement: The following information was validated with the patient. Source: old records reviewed and nursing notes reviewed Medical History Skin lesion of lower extremity delivery delivered Vitamin D deficiency Morbid obesity Lumbago Breast asymmetry in female Large breasts Surgical History History of excision of lesion History of Family History Family History Father Diabetes Hypertension Paternal Grandfather Hypertension Mother Hypertension Asthma Hyperparathyroidism Hypothyroid Bipolar disorder Social History Social History Alcohol intake: never Patient Tobacco Use Status: Never used Tobacco Substance Use Type: Marijuana Advance Directives: No Advance Directives Information Provided: Yes Physical Exam ED Vital Signs: Vital Signs - 24 hr 09/20/24 06:36 09/20/24 09:41 Temperature 98.0 F 98.0 F Pulse Rate 86 86 Respiratory Rate 20 20 Blood Pressure 107/54 L 107/54 L Pulse Oximetry 98 98 Oxygen Delivery Method Room Air Room Air BMI result Body Mass Index 46.4 Const General: cooperative, no acute distress, alert and awake Nutritional Appearance: well nourished Orientation/consciousness: patient oriented x3 Limitations: no limitations HENMT Head: Yes normal to inspection and Yes atraumatic Ears: hearing grossly normal bilaterally, external ears normal and TM normal on the right General nose exam: Normal external nose present, no nasal discharge noted and no epistaxis Face and sinus: Yes normal facial exam, No abrasion and No laceration Mouth: Normal oral and palatal mucosa present, no drooling and no muffled voice Eyes General: appearance normal, both eyes and all related structures Periorbital: periorbital findings normal Eyelids: Yes eyelids normal Conjunctivae: conjunctivae normal Pupils: Equal, round and reactive pupils present EOM: EOMs intact bilaterally Neck Neck: Yes normal visual inspection, Yes full ROM and Yes no lymphadenopathy Chest Chest palpation & inspection: normal inspection of the chest Resp Effort & Inspection: normal respiratory effort and able to speak in complete sentences GI Inspection: Yes normal to inspection Neuro General: patient oriented x3 and moves all extremities Cranial nerves: Yes Equal, round and reactive pupils present Cognition (Neuro): normal cognition Extrem General: Yes normal to inspection, Yes full ROM and Yes capillary refill normal Psych Appearance: grossly normal Mental Status: mental status grossly normal Affect: normal affect Attitude: cooperative Thought process: Normal thought process present Thought content: Normal thought content present Insight: Good insight present (Psych) Medical Decision Making Medical Decision Making MDM Narrative: Patient is a 23 year old assigned female at with no reported medical history presenting to the emergency department today with nasal congestion, cough, sore throat, and right ear pain. Patient's physical exam was unremarkable. Patient's chest x-ray showed no acute process. Patient's COVID-19, RSV, influenza, and strep testing were all negative. I explained my physical exam findings as well as all test results to the patient. I answered all questions asked by the patient. I stressed the importance of the patient taking her medication as directed (either prescribed or as the over the counter packaging recommends). I stressed the importance of the patient following up with her primary care provider. I stressed the importance of the patient returning to the emergency department immediately if her symptoms were to worsen or if she were to develop any dizziness, shortness of breath, difficulty breathing, chest pain, blurry vision, loss of vision, nausea, vomiting, abdominal pain, fever, chills, back pain, or any other complaints. Patient verbalized agreement and understanding with this treatment plan and discharge. Differential Diagnosis Differential Diagnoses: The differential diagnosis associated with the presentation includes Viral illness COVID-19 Influenza RSV Strep pharyngitis Admission/Observation Consideration of admission/observation: Escalation of care including admission/observation considered Patient would have been admitted to the hospital had her work up had any findings where hospital admission was appropriate and her clinical presentation warranted hospital admission. Lab Data [facility] Lab Attestation statement: I reviewed the patient's lab results. My interpretation of these results are in the [facility] Rationale portion of this note. Labs: Lab Results 09/20/24 Range/Units 07:00 Influenza Type A (PCR) NEGATIVE (Negative) Influenza Type B (PCR) NEGATIVE (Negative) RSV RNA Qual (PCR) NEGATIVE (Negative) SARS-CoV-2 RNA (RT-PCR) NEGATIVE (Negative) S. pyogenes GrpA CHRISTOPHER Negative (Negative) Independent Interpretation I performed an independent interpretation of an: Plain X-Ray Interpretation: My interpretation is in agreement with the radiologist's impression of this imaging study. EXAMINATION: XR CHEST CLINICAL INFORMATION: cough COMPARISON: None available. TECHNIQUE: 2 views of the chest were obtained. FINDINGS: No significant abnormality is noted involving the heart, lungs, mediastinum, bony thorax or soft tissues. XR/XR chest 2V IMPRESSION: Unremarkable chest examination. Electronically signed by: Elliot Guerrero MD 09/20/2024 07:04 AM [facility] Dictated By: Elliot Guerrero MD Signed By: Electronically signed by Elliot Guerrero MD 09/20/24 0704 Radiology Impression Discussion of test interpretation with radiology: I have reviewed the radiologist's reading. Discharge Plan Discharge Clinical Impression: Viral illness Patient Disposition: Home, Self-Care Instructions: Viral Syndrome (ED) Additional Instructions: Follow up with your primary care provider. Return to the emergency department immediately if your symptoms worsen or if you develop any dizziness, shortness of breath, difficulty breathing, chest pain, blurry vision, loss of vision, nausea, vomiting, abdominal pain, fever, chills, back pain, or any other complaints. Miguel?seguimiento?con rendon m?dico de atenci?n primaria. Acuda inmediatamente al servicio de urgencias si dee s?ntomas empeoran o si presenta falta de aliento, dificultad para respirar, dolor tor?cico, mareos, aturdimiento, dolor de espalda, dolor abdominal, fiebre, escalofr?os o cualquier otro s?ntoma. Prescriptions: No Action ibuprofen 600 mg tablet 600 mg PO Q6H PRN (Reason: fever or pain) Qty: 30 0RF amoxicillin-pot clavulanate 875-125 mg tablet 1 tab PO BID 7 Days Qty: 14 0RF benzonatate 100 mg capsule 100 mg PO BID PRN (Reason: cough) Qty: 20 0RF ibuprofen 600 mg tablet 600 mg PO Q6H PRN (Reason: fever or pain) Qty: 30 0RF acetaminophen [Tylenol Extra Strength] 500 mg tablet 500 mg PO Q6H PRN (Reason: fever or pain) Qty: 30 0RF prednisolone 5 mg tablet 10 mg PO DAILY Referrals: Millie Artis MD [Primary Care Provider] - Stand Alone Forms: Work/School Release Interventions: ED Discharge Assessment Last Done: 09/20/24 09:41 Discharge Date/Time: 09/20/24 09:41 Print Language: Citizen [place]
[2024-09-20 09:41] VITALS: BP 107/54; PULSE 86; RESP 20; TEMP 36.7; O2SAT 98
== END 2024-09-20 09:41 | disposition home or self-care (01) ==
PROVIDERS: Emergency Provider Emergency Medicine; PCP Internal Medicine
DX: B34.9 Viral infection, unspecified (principal); R05.9 Cough, unspecified; Z03.818 Encounter for observation for suspected exposure to other biological agents ruled out
CPT/HCPCS: 0241U; 71046; 87651; 99282; 99283

== ENCOUNTER → 2024-09-20 06:45 | Outpatient (BNV) | payer OTHER, SELFPAY | PROVIDERS: PCP Internal Medicine; Visit Provider Radiology Diagnostic Radiology | DX: R05.9 Cough, unspecified (principal) | CPT/HCPCS: 71046 ==

== ENCOUNTER 2024-11-08 09:15 | Outpatient (AMB) | payer OTHER, SELFPAY ==
[2024-11-08 10:08] VITALS: BP 102/80; PULSE 55; RESP 14; TEMP 36.8; O2SAT 98; BMI 46.0
--- NOTE | 2024-11-08 10:08 | A.OFFPC_ITS ---
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 Intake Note: Pt is here today as a New Patient to est care/ PE Is last menstrual period known: Yes Last menstrual period: 10/15/24 Allergies No Known Allergies Allergy (Verified 11/08/24 10:30) Medication List - Last Reconciled 11/08/24 by Millie Artis MD cholecalciferol (vitamin D3) 50 mcg PO DAILY Tobacco use date assessed: 11/08/24 Dental Screening Did you have a dental visit in the last 12 months?: Yes Did you have a dental problem in the last 6 months where you did not have access to dental care?: No Was dental information given to patient?: Patient has dentist HPI 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 She goes to [facility] for her routine Pap and pelvic exam, last done 720 03/2022 with benign findings. complains of hyperpigmentation of skin behind her neck, around her neck, and lesion on left side of neck which has been increasing in size. Keeps getting snagged with clothing, requesting referral to Dermatology for excision of lesion. patient having difficulty with losing her weight ever since she got . She states that she has been following a healthy diet, avoiding a lot of processed foods and junk foods, does not drink soda. However she has not really been exercising regularly. she also has been having recurrent episodes of low back pain especially when she is standing or bending for prolonged periods of time. [facility] Medical History (Updated 11/13/24 @ 17:11 by Millie Artis MD) Hyperpigmentation of skin History of vitamin D deficiency Skin lesion of lower extremity delivery delivered Vitamin D deficiency Morbid obesity Lumbago Breast asymmetry in female Large breasts Surgical History History of excision of lesion History of Family History Father Diabetes Hypertension Paternal Grandfather Hypertension Substance use disorder Mother Hypertension Asthma Hyperparathyroidism Hypothyroid Bipolar disorder Maternal Grandfather Substance use disorder Maternal Grandmother Substance use disorder Paternal Grandmother Substance use disorder Social History Housing: House Alcohol intake: never Patient Tobacco Use Status: Never used Tobacco e-Cigarette/Vaping Use: Never Used Substance Use Type: Marijuana service: No Current occupational status: unemployed Cognitive needs: No Hearing needs: No Vision needs: Yes Female Reproductive History Menstrual Date of last menstrual period: 10/15/24 Other: Goes to [facility] Questionnaire PHQ-9 Over the last 2 weeks, how often have you been bothered by any of the following problems? 1. Little interest or pleasure in doing things: not at all 2. Feeling down, depressed, or hopeless: not at all 3. Trouble falling or staying asleep, or sleeping too much: several days 4. Feeling tired or having little energy: not at all 5. Poor appetite or overeating: nearly every day 6. Feeling bad about yourself - or that you are a failure or have let yourself or your family down: not at all 7. Trouble concentrating on things, such as reading the newspaper or watching television: not at all 8. Moving or speaking so slowly that other people could have noticed. Or the opposite - being so fidgety or restless that you have been moving around a lot more than usual: not at all 9. Thoughts that you would be better off or of hurting yourself in some way: not at all Total score: 4 Depression Screening Interpretation: Negative Depression Screening Done: Yes 93476 - PHQ-9 Billing: Yes Source: Developed by Drs. Wolf Goodwin, Lili Vasquez, José Norris and colleagues, with an educational thom from [employer]. Thrive Questionnaire Date Thrive assessed: 11/08/24 I am a: Patient What is your living situation today?: I have a steady place to live Within the past 12 months, did the food you bought not last and you didn't have the money to get more?: Never true Within the past 12 months, did you worry whether your food would run out before you got money to buy more?: Never true Do you have trouble paying for medicines?: No Do you have trouble getting transportation to medical appointments?: No Do you have trouble paying your heating and electricity bill?: No Do you have trouble taking care of your child, family member or friend?: No Do you have trouble with day-to-day activities such as bathing, preparing meals, shopping, managing finances, etc.?: No Are you currently unemployed and looking for a job?: No Are you interested in more education?: Yes Please select the resources that you would like help with: None Currently or been in a relationship where the following occur: No concerns reported THRIVE Score: 0 AUDIT C Alcohol Use Questionnaire (AUDIT-C) 1. How often do you have a drink containing alcohol?: Never Total Score: 0 LISHA-7 AMB Questionnaire LISHA-7 Date LISHA - 7 assessed: 11/08/24 Feeling nervous, anxious, or on edge: 0 = Not at all Not being able to stop or control worryin = Not at all Worrying too much about different things: 0 = Not at all Trouble relaxin = Not at all Being so restless that it is hard to sit still: 0 = Not at all Becoming easily annoyed or irritable: 0 = Not at all Feeling afraid as if something awful might happen: 0 = Not at all Total LISHA-7 score (0-4 normal; 5-9 mild; 10-14 moderate; 15-21 severe): 0 Source: Developed by Drs. Wolf Goodwin, Lili Vasquez, José Norris and colleagues, with an educational thom from [employer]. LISHA-7 Assessment Billing LISHA-7 Assessment Tool: LISHA-7 Assessment 32813 Review of Systems Const All systems reviewed & are unremarkable except as noted in HPI and below Reports no additional complaints Eyes Reports no additional complaints ENT Reports no additional complaints Card Reports no additional complaints Resp Reports no additional complaints GI Reports no additional complaints Reports no additional complaints Musc Reports as per HPI Skin/Breast Reports as per HPI Neuro Reports no additional complaints Psych Reports no additional complaints Endo Reports no additional complaints Christian/Lymph Reports no additional complaints Aller/Immun Reports no additional complaints Physical exam (Primary Care) Vital Signs: Last Vital Signs Temp 98.2 F 11/08/24 10:08 Pulse 55 11/08/24 10:08 Resp 14 11/08/24 10:08 BP 102/80 11/08/24 10:08 Pulse Ox 98 11/08/24 10:08 Oxygen Delivery Method Room Air 11/08/24 10:08 BMI result Body Mass Index 46.0 Tobacco/Smoking Status: Tobacco use Status Tobacco use date assessed 11/08/24 11/08/24 10:20 Patient Tobacco Use Status Never used Tobacco 11/08/24 10:20 e-Cigarette/Vaping Use Never Used 11/08/24 10:20 PHQ-9: PHQ-9 Score PHQ-9: Total score 4 11/13/24 17:10 Depression Screening Interpretation: Negative Thrive Assessment: Date of Thrive Assessment Date Thrive assessed 11/08/24 11/08/24 10:20 Currently or been in a relationship where the following occur: No concerns reported Const General: no acute distress and alert Orientation/consciousness: patient oriented x3 HENMT Head: Yes normocephalic Ears: external ears normal, TM's normal bilaterally and EAC's normal General nose exam: Normal external nose present Face and sinus: Yes face symmetric Mouth: Normal oral and palatal mucosa present, oropharynx normal and moist mucous membranes Eyes General: appearance normal, both eyes and all related structures Eyelids: Yes eyelids normal Conjunctivae: conjunctivae normal Sclerae: sclerae normal Pupils: Equal, round and reactive pupils present EOM: EOMs intact bilaterally Neck Neck: Yes full ROM, Yes no lymphadenopathy and Yes supple Thyroid: Thyroid normal Resp Effort & Inspection: normal respiratory effort and able to speak in complete sentences Auscultation: clear to auscultation bilaterally Cardio Rate: regular rate Rhythm: regular rhythm Heart sounds: S1 normal heart sound present and S2 normal heart sound present GI Palpation (GI): Soft to palpation, nontender, no guarding and no masses Auscultation: normal bowel sounds General: Yes no CVA tenderness Back/Spine/Pelvis Back: no CVA tenderness and No back tenderness Thoracic/Lumbar Spine: thoraco-lumbar ROM normal and Lasegue's sign negative Skin Other: hyperpigmented pedunculated lesion on left side of neck, acanthosis nigricans present General skin exam: no rashes or lesions noted Neuro General: patient oriented x3, moves all extremities, no focal motor deficits and CN's II-XI intact bilaterally Cranial nerves: Yes Equal, round and reactive pupils present Cognition (Neuro): normal cognition Gait exam (Neuro): Normal gait present Motor exam (neuro): 5/5 motor strength present throughout Extrem General: Yes full ROM, Yes no joint enlargement, Yes no pedal edema and Yes normal gait Psych Appearance: grossly normal and well kempt Mental Status: mental status grossly normal Speech and movement: Normal speech and movement present Affect: normal affect Attitude: cooperative Thought process: Normal thought process present Thought content: Normal thought content present Coding Level of Care Code New Pt Prev Care 18-39yr([id number] Diagnoses Morbid obesity E66.01 Skin lesion of neck L98.9 History of vitamin D deficiency Z86.39 Fatigue, unspecified type R53.83 Fatigue type: unspecified Screening for Malignant Neoplasm of Skin Z12.83 Chronic midline low back pain without sciatica M54.5; G89.29 Back pain laterality: midline Chronicity: chronic Sciatica presence: without sciatica Additional Codes LISHA-7 Assessment Billing - LISHA-7 Assessment Tool: LISHA-7 Assessment 40119 ([id number]) PHQ-9 - 26497 - PHQ-9 Billing: Yes ([id number]) Assessment & Plan Assessment & Plan (1) Morbid obesity: Code(s): E66.01 - Morbid (severe) obesity due to excess calories Category: Medical Plan: Discussed need to increase activity and weight reduction. Recommended following a Mediterranean diet is a healthy diet that helps, limit food high in fat, sugar, and calories. Eat slowly, pay attention to portion sizes, plan your meals ahead of time, start regular physical activity, at least 150 minutes of moderate intensity exercise, or 90 minutes per week of vigorous exercise. Keeping a food diary, tracking what you eat and your physical activity can help assess what improvements you can make. will do a trial of Zepbound to help with weight loss, started on 2.5 mg injected subcutaneously once a week, directions on administering medication discussed with patient as well as possible side effects that might include nausea, abdominal cramping, constipation diarrhea, headache increased risk for gallstones, sudden loss of vision, and increased risk for pancreatitis. (2) Skin lesion of neck: Code(s): L98.9 - Disorder of the skin and subcutaneous tissue, unspecified Category: Medical Plan: dermatology consult ordered (3) History of vitamin D deficiency: Code(s): Z86.39 - Personal history of other endocrine, nutritional and metabolic disease Category: Medical Plan: will check vitamin-D level (4) Fatigue: Code(s): R53.83 - Other fatigue Category: Medical Qualifiers: Fatigue type: unspecified Qualified Code(s): R53.83 - Other fatigue Plan: will check complete blood count, TSH with free T4 comprehensive metabolic panel vitamin-D level (5) Screening for Malignant Neoplasm of Skin: Code(s): Z12.83 - Encounter for screening for malignant neoplasm of skin Plan: dermatology consult ordered (6) Lumbago: Code(s): M54.5 - Low back pain Category: Medical Qualifiers: Back pain laterality: midline Chronicity: chronic Sciatica presence: without sciatica Qualified Code(s): M54.5 - Low back pain; G89.29 - Other chronic pain Plan: proper posture is important, do stretching exercises, may try applying Salonpas patch to affected area in lower back to 2 3 times a day as needed. Orders: Orders Hemoglobin A1c 11/08/24 E66.01 - Morbid (severe) obesity due to excess calories, R53.83 - Other fatigue, Z86.39 - Personal history of other endocrine, nutritional and metabolic disease Complete Blood Count Auto Diff 11/08/24 E66. - Morbid (severe) obesity due to excess calories, R53.83 - Other fatigue, Z86.39 - Personal history of other endocrine, nutritional and metabolic disease TSH reflex Free T4 11/08/24 E66.01 - Morbid (severe) obesity due to excess calories, R53.83 - Other fatigue, Z86.39 - Personal history of other endocrine, nutritional and metabolic disease Alanine Aminotransferase 11/08/24 E66. - Morbid (severe) obesity due to excess calories, R53.83 - Other fatigue, Z86.39 - Personal history of other endocrine, nutritional and metabolic disease Aspartate Amino Transferase 11/08/24 E66. - Morbid (severe) obesity due to excess calories, R53.83 - Other fatigue, Z86.39 - Personal history of other endocrine, nutritional and metabolic disease Basic Metabolic Panel Fasting 11/08/24 E66. - Morbid (severe) obesity due to excess calories, R53.83 - Other fatigue, Z86.39 - Personal history of other endocrine, nutritional and metabolic disease Lipid Panel 11/08/24 E66.01 - Morbid (severe) obesity due to excess calories, R53.83 - Other fatigue, Z86.39 - Personal history of other endocrine, nutritional and metabolic disease Vitamin D 25-OH Total 11/08/24 E66.01 - Morbid (severe) obesity due to excess calories, R53.83 - Other fatigue, Z86.39 - Personal history of other endocrine, nutritional and metabolic disease Referrals Dermatology Referral L81.9 - Disorder of pigmentation, unspecified, L98.9 - Disorder of the skin and subcutaneous tissue, unspecified, Z12.83 - Encounter for screening for malignant neoplasm of skin Medications: New Zepbound (tirzepatide (weight loss)) for 4 weeks 2.5 mg (0.5 mL) subcut QWEEK 2 mL 1RF NS E66.01 - Morbid (severe) obesity due to excess calories, G89.29 - Other chronic pain, M54.5 - Low back pain
== END 2024-11-08 11:05 | disposition home or self-care (01) ==
LOC: HO.HMCC 09:16
PROVIDERS: PCP Internal Medicine; Visit Provider Internal Medicine
DX: Z00.00 Encounter for general adult medical examination without abnormal findings (principal); E66.01 Morbid (severe) obesity due to excess calories; Z68.42 Body mass index [BMI] 45.0-49.9, adult; L98.9 Disorder of the skin and subcutaneous tissue, unspecified; Z86.39 Personal history of other endocrine, nutritional and metabolic disease; R53.83 Other fatigue; Z12.83 Encounter for screening for malignant neoplasm of skin; M54.50 Low back pain, unspecified; G89.29 Other chronic pain

== ENCOUNTER 2024-11-08 09:15 | Outpatient (REF) | payer OTHER, SELFPAY ==
[2024-11-08 13:44] LABS: MANUAL DIFF FLAG NO
[2024-11-08 13:51] LABS: Basophils Percent Auto 0.4 % (0-2); Eosinophils Absolute Auto 0.2 X10*3/uL (0.0-0.4); Eosinophils Percent Auto 1.7 % (0-4); Hematocrit 41.5 % (37.0-47.0); Hemoglobin 13.4 g/dl (12.0-16.0); Imm Gran Abs Auto 0.03 X10*3/uL (0.00-0.03); Imm Gran Pct Auto 0.3 % (0.0-0.4); Lymphocytes Absolute Auto 2.6 X10*3/uL (1.2-4.9); Lymphocytes Percent Auto 28.1 % (20-40); Mean Corpuscular HGB Conc 32.3 g/dl (31.0-35.0); Mean Corpuscular Hemoglobin 27.5 pg (27.0-33.0); Mean Corpuscular Volume 85.2 fL (80.0-98.0); Mean Platelet Volume 11.2 fL (9.4-12.3); Monocytes Absolute Auto 0.5 X10*3/uL (0.1-1.2); Monocytes Percent Auto 5.9 % (2-11); Neutrophils Absolute Auto 5.8 x10*3/uL (2.0-8.3); Neutrophils Percent Auto 63.6 % (45-73); Platelet Count 352 X10*3/uL (160-400); Red Blood Count 4.87 X10*6/uL (4.20-5.50); Red Cell Distribution Width 13.2 % (11.0-16.0); White Blood Count 9.2 X10*3/uL (4.8-10.8)
[2024-11-08 13:53] LABS: Estimated Average Glucose 114 mg/dL; Hemoglobin A1c % 5.6 % (<6.0); Total Hemoglobin (HGBA1C) 3532.1054 umol/L
[2024-11-08 14:05] LABS: Alanine Aminotransferase 22 U/L (0-31); Anion Gap 10 (12-20); Aspartate Amino Transferase 26 U/L (5-31); Blood Urea Nitrogen 11 mg/dL (9-16); Calcium 9.2 mg/dL (8.4-10.2); Carbon Dioxide 27 mmol/L (22-29); Chloride 104 mmol/L (96-108); Cholesterol 171 mg/dL (<200); Estimated Glomerular Filt Rate > 60; Glucose Fasting 90 mg/dL (60-99); HDL Cholesterol 35 mg/dL (>40); LDL Cholesterol Calculated 121 mg/dL (<100); Potassium 3.7 mmol/L (3.3-5.1); Sodium 137 mmol/L (135-145); Triglycerides 78 mg/dL (<150)
[2024-11-08 14:21] LABS: TSH reflex Free T4 1.91 uIU/mL (0.32-4.0); Vitamin D 25-OH Total 52.8 ng/mL (>30)
== END 2024-11-08 09:16 | disposition home or self-care (01) ==
LOC: HO.HMGCLDS 09:15
PROVIDERS: PCP Internal Medicine; Visit Provider Internal Medicine
DX: Z76.89 Persons encountering health services in other specified circumstances (principal); E66.01 Morbid (severe) obesity due to excess calories; Z68.42 Body mass index [BMI] 45.0-49.9, adult; L98.9 Disorder of the skin and subcutaneous tissue, unspecified; R53.83 Other fatigue; M54.50 Low back pain, unspecified; G89.29 Other chronic pain; Z86.39 Personal history of other endocrine, nutritional and metabolic disease
CPT/HCPCS: 36415; 80048; 80061; 82306; 83036; 84443; 84450; 84460; 85025; 96127; 99385

== ENCOUNTER 2024-11-18 08:25 | Outpatient (AMB) | payer OTHER, SELFPAY ==
--- NOTE | 2024-11-18 08:27 | MHC.PC.OV ---
Vital Signs 11/18/24 08:27 Height 4 ft 11 in Intake Visit Reasons: follow up labs, discuss phetermine [employer] Required: No Accompanied by: Self / Same As Patient Allergies No Known Allergies Allergy (Verified 11/18/24 09:37) Medication List - Last Reconciled 11/18/24 by Millie Artis MD No Known Home Meds Tobacco use date assessed: 11/08/24 Dental Screening Dental Screen Date: 11/18/24 Did you have a dental visit in the last 12 months?: Yes Did you have a dental problem in the last 6 months where you did not have access to dental care?: No Was dental information given to patient?: Patient has dentist HPI follow up labs, discuss phetermine HPI Details 24-year-old lady who was prescribed initially a GLP 1 agonist which was not covered by her insurance. Has been trying to lose weight through diet and exercise, and has mentioned now that she subscribed to a weight loss program online and has been buying a protein shakes and given another tablet to take. She states that she has lost approximately 10 lb since starting the program but would like to see if she can be placed on another treatment option instead for weight loss. Inform patient that her insurance will not cover GLP 1 agonist until she tries other treatment options such as phentermine, patient agreeable to this [facility] Medical History Hyperpigmentation of skin History of vitamin D deficiency Skin lesion of lower extremity delivery delivered Vitamin D deficiency Morbid obesity Lumbago Breast asymmetry in female Large breasts Surgical History History of excision of lesion History of Family History Father Diabetes Hypertension Paternal Grandfather Hypertension Substance use disorder Mother Hypertension Asthma Hyperparathyroidism Hypothyroid Bipolar disorder Maternal Grandfather Substance use disorder Maternal Grandmother Substance use disorder Paternal Grandmother Substance use disorder Social History Housing: House Alcohol intake: never Patient Tobacco Use Status: Never used Tobacco e-Cigarette/Vaping Use: Never Used Substance Use Type: Marijuana service: No Current occupational status: unemployed Cognitive needs: No Hearing needs: No Vision needs: Yes Questionnaire Thrive Questionnaire Date Thrive assessed: 11/08/24 LISHA-7 AMB Questionnaire LISHA-7 Date LISHA - 7 assessed: 11/08/24 Source: Developed by Drs. Wolf Goodwin, Lili Vasquez, José Norris and colleagues, with an educational thom from [employer]. Review of Systems Const All systems reviewed & are unremarkable except as noted in HPI and below Reports no additional complaints Eyes Reports no additional complaints ENT Reports no additional complaints Card Reports no additional complaints Resp Reports no additional complaints GI Reports no additional complaints Reports no additional complaints Musc Reports as per HPI Skin/Breast Reports as per HPI Neuro Reports no additional complaints Psych Reports no additional complaints Endo Reports no additional complaints Christian/Lymph Reports no additional complaints Aller/Immun Reports no additional complaints Physical exam (Primary Care) Tobacco/Smoking Status: Tobacco use Status Tobacco use date assessed 11/08/24 11/18/24 08:30 Patient Tobacco Use Status Never used Tobacco 11/18/24 08:30 e-Cigarette/Vaping Use Never Used 11/18/24 08:30 Thrive Assessment: Date of Thrive Assessment Date Thrive assessed 11/08/24 11/18/24 08:30 Telehealth Telehealth [facility] Location of provider rendering services: practice address Location of patient: address on file Patient Identification confirmed using: Name, : Yes Telehealth method: video Patient verbally consented to treatment: Yes Patient verbally consented to billing insurance company: Yes Patient informed of any privacy concerns related to visit: Yes Minutes spent on Phone/Video with Pt.: 15 Results Reviewed Results Reviewed: Name: Royal RasconestrellaRosa Age/Sex: 24/F : 2000 Unit#: [id number] Attend Dr: Millie Artis MD Re11/08/24 Status: DEP REF [facility] Disch: SPEC : [id number] RICHIE: 11/08/24 STATUS: COMP REQ : [id number] RECD: 11/08/[address]: Millie Artis MD COMP: 11/08/24 ENTERED: 11/08/[address]: ORDERED: CBC Auto Diff Test Result Flag Reference WBC 9.2 4.8-10.8 X10*3/uL RBC 4.87 4.20-5.50 X10*6/uL HGB 13.4 12.0-16.0 g/dl HCT 41.5 37.0-47.0 % MCV 85.2 80.0-98.0 fL MCH 27.5 27.0-33.0 pg MCHC 32.3 31.0-35.0 g/dl RDW 13.2 11.0-16.0 % PLT 352 # 160-400 X10*3/uL MPV 11.2 9.4-12.3 fL Neut Pct Auto 63.6 45-73 % ImGran Pct Auto 0.3 0.0-0.4 % Lymp Pct Auto 28.1 20-40 % [place] Pct Auto 5.9 2-11 % Eos Pct Auto 1.7 0-4 % Baso Pct Auto 0.4 0-2 % NRBC Pct Auto 0.0 0.0-0.2 /100WBC ANC Neut Abs # 5.8 2.0-8.3 x10*3/uL ImGran Abs Auto 0.03 0.00-0.03 X10*3/uL Lymph Abs Auto 2.6 1.2-4.9 X10*3/uL [place] Abs Auto 0.5 0.1-1.2 X10*3/uL Eos Abs Auto 0.2 0.0-0.4 X10*3/uL Baso Abs Auto 0.0 0.0-0.2 X10*3/uL NRBC Abs Auto 0.000 0.0-0.012 X10*3/uL Name: Rosa Lara Age/Sex: 24/F : 2000 Unit#: [id number] Attend Dr: Millie Artis MD Re11/08/24 Status: DEP REF Location[facility] Disch: SPEC : [id number] RICHIE: 11/08/24-1105 STATUS: COMP REQ : [id number] RECD: 11/08/24-[address]: Millie Artis MD COMP: 11/08/24-1421 ENTERED: 11/08/24-[address]: ORDERED: Met Prof Fast, AST, ALT, Lipid Panel, Vitamin D 25-OH, TSH Rflx Test Result Flag Reference Sodium 137 135-145 mmol/L Potassium 3.7 3.3-5.1 mmol/L CL 104 96-108 mmol/L CO2 27 22-29 mmol/L Gap 10 L 12-20 BUN 11 9-16 mg/dL Creat 0.59 0.5-1.4 mg/dL eGFR > 60 Chronic Kidney Disease: Estimated GFR < 60 mL/min/1.73m2 Severe Kidney Disease: Estimated GFR < 15 mL/min/1.73m2 FBS 90 60-99 mg/dL CA 9.2 8.4-10.2 mg/dL AST (GOT) 26 5-31 U/L ALT (GPT) 22 0-31 U/L Triglyceride 78 <150 mg/dL Desirable Triglyceride: less than 150 mg/dL Borderline High Triglyceride 150-199 mg/dL High Triglyceride: 200-499 mg/dL Very High Triglyceride: greater than or equal to 5OO mg/dL Cholesterol 171 <200 mg/dL Desirable Cholesterol: less than 200 mg/dL Borderline High Cholesterol: 200-239 mg/dL High Cholesterol: greater than 239 mg/dL LDL Calculated 121 H <100 mg/dL Desirable LDL: less than 100 mg/dL Near Optimal/Above Optimal LDL: 110-129 mg/dL Borderline High LDL: 130-159 mg/dL High LDL: 160-189 mg/dL Very High LDL: greater than or equal to 190 mg/dL HDL 35 L >40 mg/dL Desirable HDL: greater than 40 mg/dL Note: This HDL assay may give artificially low results in patients with liver disease. Vitamin D 25-OH 52.8 >30 ng/mL Health Based Reference Values* < 20 ng/mL Deficient 20-30 ng/mL Insufficient > 30 ng/mL Sufficient *Ming GIBBS. N Engl J Med. 2007;357:266-280 There is no well-established upper level of normal vitamin D levels. Some laboratories use 50 ng/mL as an upper limit of normal. However, toxicity is patient-dependent and may occur at any level. Careful correlation with the patient's presentation is necessary and, if there is concern for vitamin D toxicity, treatment should be considered irrespective of the serum level. Care must be taken in interpreting Vitamin D results from different laboratories and methodologies. Published data demonstrated that results from patients undergoing hemodialysis may show a negative bias when tested with various automated 25-OH vitamin D assays when compared to LC-MS/MS. When testing samples from patients whose predominant form of Vitamin D is Vitamin D2, such as patients receiving Vitamin D2 supplementation, results that are subtherapeutic should be confirmed with another method such as LC-MS/MS. TSH 1.91 0.32-4.0 uIU/mL Laboratory Tests 11/08/24 11:06 Estimat Average Glucose 114 Hemoglobin A1c % 5.6 Coding Level of Care Code Tele Est Pt Level 3 (16851) Diagnoses Morbid obesity E66.01 Assessment & Plan Assessment & Plan (1) Morbid obesity: Code(s): E66.01 - Morbid (severe) obesity due to excess calories Category: Medical Plan: Discontinued Zepbound, prescription sent for phentermine 15 mg per capsule to take once a day in our before eating breakfast or taking any medications. Advised to stop still prescribing to the online weight loss program plan if he plans to be on phentermine. Side effects of medication discussed with patient, will see her back for follow-up next month Medications: New phentermine must administer 2 hours after breakfast 15 mg PO DAILY 30 caps 1RF
== END 2024-11-18 10:13 | disposition home or self-care (01) ==
PROVIDERS: PCP Internal Medicine; Visit Provider Internal Medicine
DX: E66.01 Morbid (severe) obesity due to excess calories (principal)

== ENCOUNTER → 2024-11-18 08:25 | Outpatient (BNVA) | payer OTHER, SELFPAY | PROVIDERS: PCP Internal Medicine; Visit Provider Internal Medicine ==

== ENCOUNTER 2024-12-12 08:09 | Outpatient (AMB) | payer OTHER, SELFPAY ==
--- NOTE | 2024-12-12 09:22 | A.OFFVIS_ITS ---
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 BMI 44: Details: Start time: 9.05am, End time: 9.50am I spent 40 minutes speaking with the patient on the phone plus an additional 5 minutes reviewing and updating records for a total of 45 minutes HPI Comments Details: Previous weight loss efforts: Phentermine 15mg/d Wakes up: 8am, Sleeps: 10pm Breakfast: skips Lunch: 12.30pm (salad, rice, pasta) Dinner: 5.30pm (as lunch) Snacks: 7pm (cookies) Exercise: has gym membership Beverages: coffee: none, tea: none, soda: (regular Coke or Sprite) 2/wk, juice/ETOH: none PFSH Medical History Hyperpigmentation of skin History of vitamin D deficiency Skin lesion of lower extremity delivery delivered Vitamin D deficiency Morbid obesity Lumbago Breast asymmetry in female Large breasts Surgical History History of excision of lesion History of Family History Father Diabetes Hypertension Paternal Grandfather Hypertension Substance use disorder Mother Hypertension Asthma Hyperparathyroidism Hypothyroid Bipolar disorder Maternal Grandfather Substance use disorder Maternal Grandmother Substance use disorder Paternal Grandmother Substance use disorder Social History Housing: House Alcohol intake: never Patient Tobacco Use Status: Never used Tobacco e-Cigarette/Vaping Use: Never Used Substance Use Type: Marijuana service: No Current occupational status: unemployed Cognitive needs: No Hearing needs: No Vision needs: Yes Telehealth Telehealth Telehealth Platform: Telephone Location of provider rendering services: practice address Location of patient: address on file Patient Identification confirmed using: Name, : Yes Telehealth method: voice only Patient verbally consented to treatment: Yes Patient verbally consented to billing insurance company: Yes Patient informed of any privacy concerns related to visit: Yes Minutes spent on Phone/Video with Pt.: 45 Assessment & Plan Assessment & Plan (1) Morbid obesity: Code(s): E66.01 - Morbid (severe) obesity due to excess calories Category: Medical Plan: 1. We discussed in detail the available therapeutic options: 1) his insurance requires use of Phentermine before use of GLP-1 anti-obesity medications is considered. We discussed about the use of our [employer] software heidi for the meal and exercise plan. 2) We also discussed about the lap sleeve gastrectomy. I emphasized the importance of close follow-up, adherence to instructions and good communication. The surgery does not replace the need to change your lifestlyle which is the cause of the obesity problem. The surgery provides the motivation t o try again to change your lifestyle, it reduces the appetite and make the transition to a better lifestyle easier and doubles the amount of weight you would lose compared to doing the lifestyle change without the surgery. You will need to be on a liquid diet with protein shakes for 2 weeks before surgery to maximize weight loss and boost your nutritional status to recover better from surgery and also for the first two weeks after surgery to let the stomach heal before we introduce other foods. After the first 2 weeks we will introduce protein bars and soft foods like scrambled eggs, cottage cheese and yogurt and after the 6th week will introduce meat, fish and cooked vegetables in small amounts. Over time you should be able to eat everything in small amounts. Side effects like nausea, vomiting, heartburn or abdominal pain are not common in the practice unless you are not following in the practice. This operation requires lifetime commitment to following in our practice and communication with me. You will much less weight and experience side effects if you don?t communicate or not following in the practice. Complications are rare and in our practice is about 1/10 of the national average. 2. The patient opted to continue with the Phentermine for now and she will get back to me about the surgery 3. Needs to buy a body composition scale and start sending me weight measurements weekly 4. Needs to buy a blood pressure monitor and start checking her blood pressure daily in the morning when she wakes up. Medications: New phentermine must administer 30 minutes before or 1-2 hours after breakfast 37.5 mg PO DAILY 30 caps 0RF E66.01 - Morbid (severe) obesity due to excess calories
[2024-12-12 09:44] VITALS: BMI 43.9
== END 2024-12-12 09:52 | disposition home or self-care (01) ==
LOC: HO.HBS 08:09
PROVIDERS: PCP Internal Medicine; Visit Provider Surgery
DX: E66.01 Morbid (severe) obesity due to excess calories (principal); E66.813 Obesity, class 3; Z68.41 Body mass index [BMI] 40.0-44.9, adult
CPT/HCPCS: 99204

== ENCOUNTER 2024-12-13 06:36 | Outpatient (REF) | payer OTHER, SELFPAY ==
--- NOTE | ~2024-12-13 | XR_ITS ---
EXAMINATION: XR CHEST CLINICAL INFORMATION: E66.01 - Morbid (severe) obesity due to excess calories COMPARISON: September 20, 2024. TECHNIQUE: 2 views of the chest were obtained. FINDINGS: No consolidation, pleural effusion or pneumothorax. No hyperinflation. Cardiomediastinal silhouette size is normal. Osseous structures are intact. Mild S-shaped curvature of the upper thoracic spine. Patient's large body habitus/obesity. XR/XR chest 2V IMPRESSION: No acute airspace disease. Mild scoliosis, upper thoracic spine. Electronically signed by: Boubacar Sierra MD 12/13/2024 07:44 AM EDT
[2024-12-13 06:55] LABS: MANUAL DIFF FLAG NO
[2024-12-13 07:19] LABS: Basophils Percent Auto 0.2 % (0-2); Eosinophils Absolute Auto 0.2 X10*3/uL (0.0-0.4); Hematocrit 41.1 % (37.0-47.0); Hemoglobin 13.8 g/dl (12.0-16.0); Imm Gran Abs Auto 0.02 X10*3/uL (0.00-0.03); Imm Gran Pct Auto 0.2 % (0.0-0.4); Lymphocytes Absolute Auto 3.1 X10*3/uL (1.2-4.9); Lymphocytes Percent Auto 38.6 % (20-40); Mean Corpuscular HGB Conc 33.6 g/dl (31.0-35.0); Mean Corpuscular Volume 83.5 fL (80.0-98.0); Mean Platelet Volume 10.3 fL (9.4-12.3); Monocytes Absolute Auto 0.5 X10*3/uL (0.1-1.2); Monocytes Percent Auto 6.2 % (2-11); Neutrophils Absolute Auto 4.2 x10*3/uL (2.0-8.3); Neutrophils Percent Auto 51.8 % (45-73); Platelet Count 341 X10*3/uL (160-400); Red Blood Count 4.92 X10*6/uL (4.20-5.50); White Blood Count 8.1 X10*3/uL (4.8-10.8)
[2024-12-13 07:26] LABS: Estimated Average Glucose 111 mg/dL; Hemoglobin A1C 134.5891 umol/L; Hemoglobin A1c % 5.5 % (<6.0); Total Hemoglobin (HGBA1C) 3696.2594 umol/L
--- NOTE | 2024-12-13 07:43 | ECG_ITS ---
Test Reason : e66.1 Blood Pressure : */* mmHG Vent. Rate : 69 BPM Atrial Rate : 69 BPM P-R Int : 154 ms QRS Dur : 88 ms QT Int : 374 ms P-R-T Axes : 28 30 17 degrees QTcB Int : 400 ms Normal sinus rhythm Normal ECG No previous ECGs available Referred By: Yazan East Electronically Signed By: Herman Savage
[2024-12-13 07:56] LABS: Alanine Aminotransferase 21 U/L (0-31); Albumin Level 4.1 g/dL (3.5-5.0); Alkaline Phosphatase 66 U/L (39-117); Anion Gap 12 (12-20); Aspartate Amino Transferase 19 U/L (5-31); Bilirubin Total 0.7 mg/dL (0.0-1.0); Blood Urea Nitrogen 9 mg/dL (9-16); C Reactive Protein 0.75 mg/dL (< or = 0.50); Carbon Dioxide 23 mmol/L (22-29); Chloride 107 mmol/L (96-108); Cholesterol 200 mg/dL (<200); Estimated Glomerular Filt Rate > 60; Glucose Random 97 mg/dL (60-115); HDL Cholesterol 42 mg/dL (>40); Iron 95 mcg/dL (30-160); LDL Cholesterol Calculated 144 mg/dL (<100); Percent Iron Saturation 31 % (15-50); Potassium 3.6 mmol/L (3.3-5.1); Sodium 138 mmol/L (135-145); Total Iron Binding Capacity 305 mcg/dL (228-428); Total Protein 7.7 g/dL (6.5-8.0); Triglycerides 71 mg/dL (<150); Unsaturated Iron Binding 210 ug/dL
[2024-12-13 08:16] LABS: Ferritin 140 ng/mL (10-122); Insulin 18 uU/mL (2-29); Vitamin D 25-OH Total 23.3 ng/mL (>30)
[2024-12-13 08:20] LABS: Folate 13.2 ng/mL (> or = 4.0); Vitamin B12 338 pg/mL (200-900)
[2024-12-15 13:09] LABS: Zinc 87 mcg/dL (60-130)
[2024-12-17 14:08] LABS: Vitamin A 39 mcg/dL (38-98)
[2024-12-21 16:38] LABS: Vitamin B1 14 nmol/L (8-30)
== END 2024-12-13 06:37 | disposition home or self-care (01) ==
LOC: HO.XRAY 06:36
PROVIDERS: PCP Internal Medicine; Visit Provider Surgery
DX: E66.01 Morbid (severe) obesity due to excess calories (principal)
CPT/HCPCS: 36415; 71046; 80053; 80061; 82306; 82607; 82728; 82746; 83036; 83525; 83540; 84425; 84443; 84590; 84630; 85025; 86140; 93005

== ENCOUNTER → 2024-12-13 06:52 | Outpatient (BNV) | payer OTHER, SELFPAY | PROVIDERS: PCP Internal Medicine; Visit Provider Radiology Diagnostic Radiology | DX: E66.01 Morbid (severe) obesity due to excess calories (principal) | CPT/HCPCS: 71046 ==

== ENCOUNTER → 2024-12-13 07:43 | Outpatient (BNV) | payer OTHER, SELFPAY | PROVIDERS: PCP Internal Medicine; Visit Provider Internal Medicine Cardiovascular Disease | DX: E66.1 Drug-induced obesity (principal) | CPT/HCPCS: 93010 ==

== ENCOUNTER 2024-12-23 09:46 | Outpatient (AMB) | payer OTHER, SELFPAY ==
--- NOTE | 2024-12-23 09:43 | MHC.PC.OV ---
Intake Visit Reasons: I phone [phone] discuss phetermine Allergies No Known Allergies Allergy (Verified 12/23/24 10:04) Medication List - Last Reconciled 12/23/24 by Millie Artis MD cholecalciferol (vitamin D3) 125 mcg PO DAILY mecobalamin (vitamin B12) 1,000 mcg sublingual DAILY phentermine 37.5 mg PO QAM Tobacco use date assessed: 12/23/24 Dental Screening Dental Screen Date: 12/23/24 Did you have a dental visit in the last 12 months?: No Did you have a dental problem in the last 6 months where you did not have access to dental care?: No Was dental information given to patient?: No HPI I phone [phone] discuss phetermine HPI Details 24-year-old lady with morbid obesity, here today for follow-up. She has been seeing now medical weight management at [place], and was started by Dr. East on phentermine approximately a week ago. Patient states that she it has been decreasing her appetite, and states that she has lost approximately 5 lb since starting the medication. She is going to proceed with getting laparoscopic sleeve gastrectomy, awaiting scheduled for surgery. [facility] Medical History Hyperpigmentation of skin History of vitamin D deficiency Skin lesion of lower extremity delivery delivered Vitamin D deficiency Morbid obesity Lumbago Breast asymmetry in female Large breasts Surgical History History of excision of lesion History of Family History Father Diabetes Hypertension Paternal Grandfather Hypertension Substance use disorder Mother Hypertension Asthma Hyperparathyroidism Hypothyroid Bipolar disorder Maternal Grandfather Substance use disorder Maternal Grandmother Substance use disorder Paternal Grandmother Substance use disorder Social History Housing: House Alcohol intake: never Patient Tobacco Use Status: Never used Tobacco e-Cigarette/Vaping Use: Never Used Substance Use Type: Marijuana service: No Current occupational status: unemployed Cognitive needs: No Hearing needs: No Vision needs: Yes Questionnaire Thrive Questionnaire Date Thrive assessed: 11/08/24 I am a: Patient What is your living situation today?: I have a steady place to live Within the past 12 months, did the food you bought not last and you didn't have the money to get more?: Never true Within the past 12 months, did you worry whether your food would run out before you got money to buy more?: Never true Do you have trouble paying for medicines?: No Do you have trouble getting transportation to medical appointments?: No Do you have trouble paying your heating and electricity bill?: No Do you have trouble taking care of your child, family member or friend?: No Do you have trouble with day-to-day activities such as bathing, preparing meals, shopping, managing finances, etc.?: No Are you currently unemployed and looking for a job?: No Are you interested in more education?: Yes Please select the resources that you would like help with: None Currently or been in a relationship where the following occur: No concerns reported THRIVE Score: 0 AUDIT C Alcohol Use Questionnaire (AUDIT-C) 2. How many drinks containing alcohol do you have on a typical day when you are drinking?: 1 or 2 3. How often do you have six or more drinks on one occasion?: Never Total Score: 0 LISHA-7 AMB Questionnaire LISHA-7 Date LISHA - 7 assessed: 11/08/24 Source: Developed by Drs. Wolf Goodwin, Lili Vasquez, José Norris and colleagues, with an educational thom from [employer]. Review of Systems Const Reports no additional complaints Eyes Reports no additional complaints ENT Reports no additional complaints Card Reports no additional complaints Resp Reports no additional complaints GI Reports no additional complaints Reports no additional complaints Neuro Reports no additional complaints Psych Reports no additional complaints Endo Reports no additional complaints Christian/Lymph Reports no additional complaints Aller/Immun Reports no additional complaints Physical exam (Primary Care) Tobacco/Smoking Status: Tobacco use Status Tobacco use date assessed 12/23/24 12/23/24 09:45 Patient Tobacco Use Status Never used Tobacco 12/23/24 09:45 e-Cigarette/Vaping Use Never Used 12/23/24 09:45 Thrive Assessment: Date of Thrive Assessment Date Thrive assessed 11/08/24 12/23/24 09:45 Currently or been in a relationship where the following occur: No concerns reported Telehealth Telehealth Telehealth Platform: [employer] Location of provider rendering services: practice address Location of patient: address on file Patient Identification confirmed using: Name, : Yes Telehealth method: video Patient verbally consented to treatment: Yes Patient verbally consented to billing insurance company: Yes Patient informed of any privacy concerns related to visit: Yes Coding Level of Care Code Est Pt Level 4 (73508) Diagnoses Morbid obesity E66.01 Assessment & Plan Assessment & Plan (1) Morbid obesity: Code(s): E66.01 - Morbid (severe) obesity due to excess calories Category: Medical Plan: Patient currently on phentermine 37.5 mg taken once a day, tolerating medication well, states that she has lost approximately 10 lb since starting taking the medicine a week ago. Patient currently being followed by [facility] weight management clinic and planning to get sleeve gastrectomy
== END 2024-12-23 10:52 | disposition home or self-care (01) ==
LOC: HO.HMCC 09:46
PROVIDERS: PCP Internal Medicine; Visit Provider Internal Medicine
DX: E66.01 Morbid (severe) obesity due to excess calories (principal)

== ENCOUNTER → 2024-12-23 09:46 | Outpatient (BNVA) | payer OTHER, SELFPAY | PROVIDERS: PCP Internal Medicine; Visit Provider Internal Medicine ==

== ENCOUNTER 2024-12-23 10:16 | Outpatient (AMB) | payer OTHER, SELFPAY ==
--- NOTE | 2024-12-23 10:14 | MHC.WMTHER ---
Intake Intake Visit Reasons: VIDEO BH Intake Allergies No Known Allergies Allergy (Verified 12/23/24 10:04) [facility] Medical History Hyperpigmentation of skin History of vitamin D deficiency Skin lesion of lower extremity delivery delivered Vitamin D deficiency Morbid obesity Lumbago Breast asymmetry in female Large breasts Surgical History History of excision of lesion History of Family History Father Diabetes Hypertension Paternal Grandfather Hypertension Substance use disorder Mother Hypertension Asthma Hyperparathyroidism Hypothyroid Bipolar disorder Maternal Grandfather Substance use disorder Maternal Grandmother Substance use disorder Paternal Grandmother Substance use disorder Social History Housing: House Alcohol intake: never Patient Tobacco Use Status: Never used Tobacco e-Cigarette/Vaping Use: Never Used Substance Use Type: Marijuana service: No Current occupational status: unemployed Cognitive needs: No Hearing needs: No Vision needs: Yes Behavioral Health Assessment Weight Management Therapy Therapy Notes Details The patient is a 24-year-old female presenting for an initial visit to begin a behavioral health assessment as part of a surgical weight loss program. She was initially referred by her primary care provider (PCP), who had started her on medication; however, her insurance did not approve coverage for the weight loss injections. Presenting Concerns Referral Source [facility]- Provider Reason for referral Completion of behavioral health assessment as part of process for weight-loss surgery. Precipitating Event Obesity Living Situation Current Living Situation Rent At risk of losing current housing? No Satisfied with current living situation? Yes Comments PT lives with her 2 year old son. Social History Family history and relationship PT is a single mother. She has a 2 y/o son, she reports having a good relationship with the son's father. Father in 2020. Mother alive. She has 5 siblings total, 3 stepsisters from her stepfathers, and 2 from mom's side. 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 Developmental history and status None reported Currently WNL. Social support Son's father, mother, sister. Community support Supports for her son who has Autism. 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 Druze/Spirituality Raised as Religious. Currently visiting [employer]. Cultural/Ethnic information Born in [place]. Moved to [place] in 2019. Legal Involvement and History Current or historical involvement with the legal system? None reported. Education Highest grade completed HS Preferred learning style Learn by doing and Visual Currently enrolled in educational program? No Interested in further educational program? 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 Actively looking. She is waiting for Mexican classes. Employment Employment Status Unemployed Wants help to find employment? Yes Meaningful activities Baking, family activities, and outdoor activities. Financial Situation Describe current financial situation Occasional struggle Financial assistance? Child Support, Food [place] and Other ([facility]) Service Service? No Mental Health and Addiction Treatment Current/Past substance abuse? No Comments Alcohol: None. Cigarettes/Tobacco: None Cannabis/Edibles: None Current/Past addictive behavior concerns? No Psychiatric history PT reported she went to counseling in childhood around age 6, when her parents . PT denies ever being inpatient for mental health or experiencing a crisis. There is no history and/or current concern about SI/Sa and self-harm or other harm. Medical and Physical Health Summary Additional Medical History not covered in history None aditional Sexual History concerns None reported Physical exam in the last year? Yes Pain Screening Current pain? Yes Pain in the last few months? Yes Comments Back pain due to large breast. Medications Is the patient compliant with medications? Yes Does the patient have Jacob Guardian in place? Not applicable Does the patient use complimentary health approaches? No Trauma/Abuse History History of trauma? No Questionnaires PHQ-9 Over the last 2 weeks, how often have you been bothered by any of the following problems? 1. Little interest or pleasure in doing things: several days 2. Feeling down, depressed, or hopeless: more than half the days 3. Trouble falling or staying asleep, or sleeping too much: more than half the days 4. Feeling tired or having little energy: more than half the days 5. Poor appetite or overeating: more than half the days 6. Feeling bad about yourself - or that you are a failure or have let yourself or your family down: several days 7. Trouble concentrating on things, such as reading the newspaper or watching television: not at all 8. Moving or speaking so slowly that other people could have noticed. Or the opposite - being so fidgety or restless that you have been moving around a lot more than usual: several days 9. Thoughts that you would be better off or of hurting yourself in some way: not at all Total score: 11 Depression Screening Interpretation: Positive (From new PT pack. ) Depression Screening Done: Yes Source: Developed by Drs. Wolf Goodwin, Lili Vasquez, José Norris and colleagues, with an educational thom from [employer]. Assessment & Plan Assessment & Plan (1) Adjustment disorder: Code(s): F43.20 - Adjustment disorder, unspecified (2) Pre-bariatric surgery psychological evaluation: Code(s): Z71.89 - Other specified counseling Plan The patient is not yet cleared, as the behavioral health assessment is still in progress. She will return in 2?3 weeks to continue the evaluation. At the next visit, the Binge Eating Scale (BES) will be reviewed, and a new PHQ-9 will be administered. Next heidi: 01/06/2025 at 10am, Telehealth-video Telehealth Telehealth Telehealth Platform: [employer] Location of provider rendering services: other Location of patient: address on file Patient Identification confirmed using: Name, : Yes Telehealth method: video Patient verbally consented to treatment: Yes Patient verbally consented to billing insurance company: Yes Patient informed of any privacy concerns related to visit: Yes Minutes spent on Phone/Video with Pt.: 50 Coding Level of Care Code New Pt Tele Psy Diag Aman ([id number]) Patient Type New Diagnoses Adjustment disorder F43.20 Pre-bariatric surgery psychological evaluation Z71.89 Time Spent (min) 50
== END 2024-12-23 11:02 | disposition home or self-care (01) ==
LOC: HO.HBST 10:16
PROVIDERS: PCP Internal Medicine; Visit Provider Counselor Mental Health
DX: F43.20 Adjustment disorder, unspecified (principal); Z71.89 Other specified counseling
CPT/HCPCS: 90791

== ENCOUNTER 2024-12-30 08:28 | Day surgery (SDC) | payer OTHER, SELFPAY ==
[2024-12-28 09:03] VITALS: BMI 43.8
--- NOTE | 2024-12-28 12:33 | HO.ANESPROP2 ---
Documented by User: Mercedes Villafuerte NP 12/28/24 12:35 HPI - Anesthesia Eval Consult details Narrative: 24yo F for Upper Endoscopy BMI 43.8 PMFSH Active Problems Active Problems: All Active Problems Vitamin B12 deficiency (Acute) Hyperpigmentation of skin (Acute) Fatigue (Acute) History of vitamin D deficiency (Acute) Skin lesion of neck (Acute) Vitamin D deficiency (Acute) Morbid obesity (Acute) Lumbago (Acute) Breast asymmetry in female (Acute) Large breasts (Acute) Past Medical History Medical History Hyperpigmentation of skin History of vitamin D deficiency Skin lesion of lower extremity delivery delivered Vitamin D deficiency Morbid obesity Lumbago Breast asymmetry in female Large breasts Family History Family History Father Diabetes Hypertension Paternal Grandfather Hypertension Substance use disorder Mother Hypertension Asthma Hyperparathyroidism Hypothyroid Bipolar disorder Maternal Grandfather Substance use disorder Maternal Grandmother Substance use disorder Paternal Grandmother Substance use disorder Surgical History Surgical History History of excision of lesion History of Social History Social History Housing: House Alcohol intake: never Patient Tobacco Use Status: Never used Tobacco e-Cigarette/Vaping Use: Never Used Substance Use Type: Marijuana Advance Directives: No Advance Directives Information Provided: Yes service: No Current occupational status: unemployed Cognitive needs: No Hearing needs: No Vision needs: Yes Meds Allergies Allergy/AdvReac Type Severity Reaction Status Date / Time No Known Allergies Allergy Verified 12/30/24 08:56 Exam Height,Weight and Vital Signs: Height 4 ft 11 in Weight 98.43 kg Narrative Narrative: EKG 11/2024 Vent. Rate : 69 BPM Atrial Rate : 69 BPM P-R Int : 154 ms QRS Dur : 88 ms QT Int : 374 ms P-R-T Axes : 28 30 17 degrees QTcB Int : 400 ms Normal sinus rhythm Normal ECG No previous ECGs available Assessment and Plan Assessment Anesthesia Assessment: Chart Reviewed Documented by User: Shanna Hathaway MD 12/30/24 08:58 PMFSH Past Medical History Medical History Hyperpigmentation of skin History of vitamin D deficiency Skin lesion of lower extremity delivery delivered Vitamin D deficiency Morbid obesity Lumbago Breast asymmetry in female Large breasts Family History Family History Father Diabetes Hypertension Paternal Grandfather Hypertension Substance use disorder Mother Hypertension Asthma Hyperparathyroidism Hypothyroid Bipolar disorder Maternal Grandfather Substance use disorder Maternal Grandmother Substance use disorder Paternal Grandmother Substance use disorder Family history of problems with anesthesia: No Surgical History Surgical History History of excision of lesion History of History of Problems with Anesthesia: No Social History Social History Housing: House Alcohol intake: never Patient Tobacco Use Status: Never used Tobacco e-Cigarette/Vaping Use: Never Used Substance Use Type: Marijuana Advance Directives: No Advance Directives Information Provided: Yes service: No Current occupational status: unemployed Cognitive needs: No Hearing needs: No Vision needs: Yes Meds Allergies Allergy/AdvReac Type Severity Reaction Status Date / Time No Known Allergies Allergy Verified 12/30/24 08:56 Exam Airway Mallampati Class: II TM Dist: >3cm Neck ROM: Full Heart: rrr Lungs: cta Assessment and Plan Assessment Anesthesia Assessment: Anesthesia Plan Discussed Final Anesthetic Review Family History of Problems with Anesthesia: No History of Problems with Anesthesia: No NPO: Yes ASA Class: III Final Preanesthetic Review: No Changes in Pt Med Stat, Meds/Allgs Chart Reviewed and Consent Obtained/Reviewed Patient Risk: Intermediate Procedure Risk: Intermediate Anesthetic Plan Anesthetic Plan: MAC: Disposition: Standard PACU
[2024-12-30 08:57] VITALS: BP 105/63; PULSE 87; RESP 14; TEMP 36.6; O2SAT 98; BMI 41.9
[2024-12-30] MEDS: Lactated Ringers 1,000 ML 80 ML IVCONT (09:01)
[2024-12-30 09:05] LABS: UPreg QC Valid YES; Urine Pregnancy NEGATIVE (NEGATIVE)
--- NOTE | 2024-12-30 09:43 | MHC.SHP ---
Pre-Procedural Eval Section A - 24 Hr Update-Section A only Date of Service: 12/30/24 The patient is an INPATIENT: No The patient has been examined within 24 hours of the surgical procedure. The History & Physical has been completed within 30 days and I have reviewed it.: Yes Section B - Complete if H&P > 30 days Chief Complaint: Morbid (severe) obesity due to excess calories Relevant Family History (Specify if Yes): No Relevant Social History: None Present Medications: None Medical History: No relevant PMH History of Previous Operations: No relevant previous surgery Allergies: Allergies Allergy/AdvReac Type Severity Reaction Status Date / Time No Known Allergies Allergy Verified 12/30/24 08:56 Review of Systems Sugical H&P ROS: Negative: Constitution, Cardiovascular, Respiratory, Neurological, Psychiatric, Hem-Onc, Allergic/Immunologic, Gastrointestinal, Genitourinary, Musculoskeletal, Integumentary, Endocrine and Eyes/Ears/Nose/Throat Exam Surgical H&P Exam: Normal: HEENT, Normal: Heart, Normal: Lungs, Normal: Extremities, Normal: Abdomen, Normal: Skin and Normal: Neurological Plan Diagnosis/Plan: Unchanged (EGD to assess the stomach's anatomy. Risks of bleeding and perforation were discussed with the patient and she is in agreement with the plan.) I have reviewed the history and physical and performed a pertinent physical examination on my patient. No changes have occurred unless specified. Time Spent With Patient Time: Total time managing care of this patient today ____ minutes.
--- NOTE | 2024-12-30 09:46 | PM.OP ---
Brief Operative Note Date of Service: 12/30/24 Pre-op diagnosis: Morbid obesity Post-op diagnosis: same Procedure: PROCEDURE DATE: 12/30/2024 PREOPERATIVE DIAGNOSIS: GERD POSTOPERATIVE DIAGNOSIS: ?Same as above. 1) Normal PROCEDURE: Znzvkwyb-pfgvgo-wiiljwzttzap with biopsies Surgeon: Kyler East M.D.. Ph.D. Remote Inpatient Coder: None ? Anesthesia: IV sedation Estimated blood loss: ?Minimal FINDINGS AND PROCEDURE: ? OPERATIVE INDICATIONS: ?The patient is a 24 year old female known to me who is interested in bariatric surgery. Based on this information I recommended an upper endoscopy to evaluate the stomach's anatomy. Risks and complications of the surgery were discussed with the patient in advance particularly the possibility of perforation or bleeding that may require surgical intervention. The patient understood the risks and was in agreement with the plan. ? PROCEDURE: After informed consent was obtained by the patient, the patient was ?transferred to the Operating Room and was placed in the supine position.? After successful induction of IV sedation, a mouth block was inserted and the patient was placed in the left lateral decubitus position. An upper endoscopy was performed next, the oropharynx and esophagus appeared within the normal limits. There was no hiatal hernia. The z-line was smooth. Two biopsies were obtained from the distal esophagus 2-3 cm proximal to the GE junction and two additional biopsies from the GE junction. The stomach was entered and it appeared to be of normal size. There was no gastritis. There was no stricture or ulcer. A biopsy was obtained from the gastric fundus and the antrum. No significant bleeding was noted from any of the biopsy sites. Retroflexion of the scope confirmed a normal GE junction. The scope was then advanced into the duodenum which appeared to be normal as well. At that point the duodenum ?and the stomach were decompressed and the scope was withdrawn from the patient's mouth. The patient extubated and was transferred in stable condition to the Recovery Room for further care. I was present and performed all steps of the procedure. There were no residents to assist with this case. Garth East M.D., Ph.D. Surgeon: Yazan East MD Anesthesia: MAC Was an Remote Inpatient Coder used for this Procedure?: No Estimated blood loss (mL): 0 IV fluids (mL): 400 Urine output (mL): 0 (No Gómez to record output) Pathology: other (1) antrum x1, 2) fundus x1, 3) GE junction x2, 4) distal esophagus x2) Condition: stable Disposition: PACU
[2024-12-30 10:04] VITALS: BP 97/54; PULSE 95; RESP 16; TEMP 36.9; O2SAT 93
[2024-12-30 10:19] VITALS: BP 115/66; PULSE 94; RESP 16; TEMP 36.9; O2SAT 95
== END 2024-12-30 10:53 | disposition home or self-care (01) ==
PROVIDERS: Nurse Practitioner; PCP Internal Medicine; Visit Provider Surgery
PROC: 0DJ08ZZ Inspection of Upper Intestinal Tract, Via Natural or Artificial Opening Endoscopic (ICD-10-PCS; CPT 43235; principal; 2024-12-30 09:40)
DX: K21.9 Gastro-esophageal reflux disease without esophagitis (principal); E66.01 Morbid (severe) obesity due to excess calories; Z68.41 Body mass index [BMI] 40.0-44.9, adult; E55.9 Vitamin D deficiency, unspecified; L81.9 Disorder of pigmentation, unspecified; N64.89 Other specified disorders of breast; Z79.899 Other long term (current) drug therapy; Z98.890 Other specified postprocedural states; Z56.0 Unemployment, unspecified
CPT/HCPCS: 43239; 81025; 88305; 88313; 88342; J2003; J2704

== ENCOUNTER → 2024-12-30 08:28 | Outpatient (BNV) | payer OTHER, SELFPAY | PROVIDERS: PCP Internal Medicine; Visit Provider Surgery | DX: K21.9 Gastro-esophageal reflux disease without esophagitis (principal) | CPT/HCPCS: 43239 ==

== ENCOUNTER 2025-01-06 10:17 | Outpatient (AMB) | payer OTHER, SELFPAY ==
--- NOTE | 2025-01-06 10:15 | A.OFFWM_ITS ---
Intake Intake Visit Reasons: VIDEO BH Intake Part 2 Allergies No Known Allergies Allergy (Verified 12/30/24 08:56) [facility] Medical History Hyperpigmentation of skin History of vitamin D deficiency Skin lesion of lower extremity delivery delivered Vitamin D deficiency Morbid obesity Lumbago Breast asymmetry in female Large breasts Surgical History History of excision of lesion History of Family History Father Diabetes Hypertension Paternal Grandfather Hypertension Substance use disorder Mother Hypertension Asthma Hyperparathyroidism Hypothyroid Bipolar disorder Maternal Grandfather Substance use disorder Maternal Grandmother Substance use disorder Paternal Grandmother Substance use disorder Social History Housing: House Are you a primary residential child care counselor to a significant other at home: No Do you presently have visiting nurse or other home services: No Alcohol intake: never Patient Tobacco Use Status: Never used Tobacco e-Cigarette/Vaping Use: Never Used Substance Use Type: Marijuana service: No Current occupational status: unemployed Cognitive needs: No Hearing needs: No Vision needs: Yes Behavioral Health Assessment Weight Management Therapy Therapy Notes Details The patient is a 24-year-old female presenting for a second visit to begin a behavioral health assessment as part of a surgical weight loss program. She was initially referred by her primary care provider (PCP), who had started her on medication; however, her insurance did not approve coverage for the weight loss injections. Presenting Concerns Referral Source WMP- Provider Reason for referral Completion of behavioral health assessment as part of process for weight-loss surgery. Precipitating Event Obesity Living Situation Current Living Situation Rent At risk of losing current housing? No Satisfied with current living situation? Yes Comments PT lives with her 2 year old son. Food/Weight/Diet Expectations of change PT stated the program on 12/12/2024 at 217Lbs, and the most recent weight was 202Lbs as of 01/03/2025. Her goal is to have a healthier lifestyle and be at a healthy weight PT is implementing the following: Current meal plan: 2 shakes, 2 bars, and 1 meal. (sometimes doesn't eat the last bar) Exercise plan: Gym and group exercises. She has a treadmill at home. Tries to exercise daily. Scale: Yes. Communication with the provider: Yes. Tuesdays. History/Relationship with food Example of meals before starting the program: Breakfast: Lunch: Dinner: Snacks: Drinks/Liquids: History/Relationship with weight PT reports she has always been overweight. When she was 10 years old she was around 130 lbs. In 2019 (age 18), she was 179 lbs. pre- she was 185 lbs, after , she has never been under 200 Lbs. In the last 10 years, the patient's Lowest weight was 170Lbs and the highest 235Lbs. History/Relationship with dieting Shaklee (shakes, supplements, and portion control) October/2024 started at 235Lbs, lost about 19Lbs in almost 2 months. Truvy weight loss pills in 2021 - Lost 20 lbs. Gained all the weight back. In 2023 again. 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 Phentermine (started on October by her PCP - Now by Dr. Hill) Social History Family history and relationship PT is a single mother. She has a 2 y/o son, she reports having a good relationship with the son's father. Father in 2020. Mother alive. She has 5 siblings total, 3 stepsisters from her stepfathers, and 2 from mom's side. 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 Developmental history and status None reported Currently WNL. Social support Son's father, mother, sister. Community support Supports for her son who has Autism. 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 Congregation/Spirituality Raised as Anglican. Currently visiting [place]. Cultural/Ethnic information Born in [place]. Moved to [place] in 2019. Legal Involvement and History Current or historical involvement with the legal system? None reported. Education Highest grade completed HS Preferred learning style Learn by doing and Visual Currently enrolled in educational program? No Interested in further educational program? 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 Actively looking. She is waiting for [place]ian classes. Employment Employment Status Unemployed Wants help to find employment? Yes Meaningful activities Baking, family activities, and outdoor activities. Financial Situation Describe current financial situation Occasional struggle Financial assistance? Child Support, Food [place] and Other (WIC) Service Service? No Mental Health and Addiction Treatment Current/Past substance abuse? No Comments Alcohol: None. Cigarettes/Tobacco: None Cannabis/Edibles: None Current/Past addictive behavior concerns? No Psychiatric history PT reported she went to counseling in childhood around age 6, when her parents . PT denies ever being inpatient for mental health or experiencing a MH crisis. There is no history and/or current concern about SI/Sa and self-harm or other harm. Medical and Physical Health Summary Additional Medical History not covered in history None aditional Sexual History concerns None reported Physical exam in the last year? Yes Pain Screening Current pain? Yes Pain in the last few months? Yes Comments Back pain due to large breast. Medications Is the patient compliant with medications? Yes Does the patient have Jacob Guardian in place? Not applicable Does the patient use complimentary health approaches? No Trauma/Abuse History History of trauma? No Questionnaires Binge Eating Scale Group 1 A. I don't feel self-conscious about my wt. or body size when I'm with others. B. I feel concerned about how I look to others, but it normally does not make me fell disappointed with myself C. I do get self-conscious about my appearance and wt. which makes me feel disappointed in myself. D. I feel very self-conscious about my wt. and frequently I feel intense shame and disgust for myself. I try to avoid social contacts because of my self- consciousness. Response Group 1: C Group 2 A. I don't have any difficulty eating slowly in the proper manner. B. Although I seem to gobble down foods, I don't end up feeling stuffed because of eating to much. C. At times, I tend to eat quickly and then, I feel uncomfortably full afterwards. D. I have the habit of bolting down my food, without really chewing it. When this happens I usually feel uncomfortably stuffed because I've eaten to much. Response Group 2: C Group 3 A. I feel capable to control my eating urges when I want to. B. I feel like I have failed to control my eating more than the average person. C. I feel utterly helpless when it comes to feeling in control of my eating urges. D. Because I feel so helpless about controlling my eating I have become very desperate about trying to get control. Response Group 3: D Group 4 A. I don't have the habit of eating when I'm bored. B. I sometimes eat when I'm bored, but often I'm able to get busy and get my mind off food. C. I have a regular habit of eating when I'm bored, but occasionally, I can use some other activity to get my mind off eating. D. I have a strong habit of eating when I'm bored. Nothing seems to help me breath the habit. Response Group 4: C Group 5 A. I'm usually physically hungry when I eat something. B. Occasionally, I eat something on impulse even though I really am not hungry. C. I have the regular habit of eating foods, that I might not really enjoy, to satisfy a hungry feeling even though physically, I don't need the food. D. Although I'm not physically hungry, I get a hungry feeling in my mouth that only seems to be satisfied when I eat a food, like sandwich, that fills my mouth. Sometimes, when I eat the food to satisfy my mouth hunger, I then spit the food out so I won't gain weight. Response Group 5: D Group 6 A. I don't feel any guilt or self-hate after I overeat. B. After I overeat, occasionally I feel guilt or self-hate. C. Almost all the time I experience strong guilt or self-hate after I overeat. Response Group 6: B Group 7 A. I don't lose total control of my eating when dieting even after periods when I overeat. B. Sometimes when I eat a forbidden food on a diet, I feel like I blew it and eat even more. C. Frequently, I have the habit of saying to myself, I've blown it now, why not go all the way, when I overeat on a diet. When that happens I eat more. D. I have a regular habit of starting a strict diets for myself but I break the diets by going on an eating binge. My life seems to be either a feast or famine. Response Group 7: D Group 8 A. I rarely eat so much food that I feel uncomfortably stuffed afterwards. B. Usually about once a month, I each such a quantity of food, I end up feeling very stuffed. C. I have regular periods during the month when I eat large amounts of food, either at mealtime or at snacks. D. I eat so much food that I regularly feel quite uncomfortable after eating and sometimes a bit nauseous. Response Group 8: B Group 9 A. My level of calorie intake does not go up very high or go down very low on a regular basis. B. Sometimes after I overeat, I will try to reduce my caloric intake to almost nothing to compensate for the excess calories I've eaten. C. I have a regular habit of overeating during the night. It seems that my routine is not to be hungry in the morning but overeat in the evening. D. In my adult years, I have had week-long periods where I practically starve myself. This follows periods when I overeat. It seems I live a life of either feast or famine. Response Group 9: C Group 10 A. I usually am able to stop eating when I want to. I know when enough is enough. B. Every so often, I experience a compulsion to eat which I can't seem to control. C. Frequently, I experience strong urges to eat which I seem unable to control, but at other times I can control my eating urges. D. I feel incapable of controlling urges to eat. I have a fear of not being able to stop eating voluntarily. Response Group 10: B Group 11 A. I don't have any problem stopping eating when I feel full. B. I usually can stop eating when I feel full but occasionally overeat leaving me feeling uncomfortably stuffed. C. I have a problem stopping eating once I start and usually I feel uncomfortably stuffed after I eat a meal. D. Because I have a problem not being able to stop eating when I want, I some times have to induce vomiting to relieve my stuffed feeling. Response Group 11: C Group 12 A. I seem to eat just as much when I'm with others, Family social gatherings as when I'm by myself. B. Sometimes, when I'm with other persons, I don't eat as much as I want to eat because I'm self-conscious about my eating. C. Frequently, I eat only a small amount of food when others are present, because I'm very embarrassed about my eating. D. I feel so ashamed about overeating that I pick times to overeat when I know no one will see me. I feel like a closet eater. Response Group 12: A Group 13 A. I eat three meals a day with only an occasional between meal snack. B. I eat 3 meals a day, but I also normally snack between meals. C. When I am snacking heavily, I get in the habit of skipping regular meals. D. There are regular periods when I seem to be continually eating, with no planned meals. Response Group 13: D Group 14 A. I don't think much about trying to control unwanted eating urges. B. At least some of the time, I feel my thoughts are pre-occupied with trying to control my eating urges. C. I feel that frequently I spend much time thinking about how much I ate or a bout trying not to eat anymore. D. It seems to me that most of my waking hours are pre-occupied by thoughts about eating or not eating. I feel like I'm constantly struggling not to eat. Response Group 14: C Group 15 A. I don't think about food a great deal. B. I have strong craving for food but they last only for brief periods of time. C. I have days when I can't seem to think about anything else but food. D. Most of my days seem to be pre-occupied with thoughts about food. I feel like I live to eat. Response Group 15: B Group 16 A. I usually know whether or not I'm physically hungry. I take the right portion of food to satisfy me. B. Occasionally, I feel uncertain about knowing whether or not I'm physically hungry. A these times it's hard to know how much food I should take to satisfy me. C. Even though I might know how many calories I should eat, I don't have any idea what is a normal amount of food for me. Response Group 16: B Binge Eating Score: 29 Score less than 17 Minimal Risk Score between 18-26 Moderate Risk Score between 27-46 High Risk Assessment & Plan Assessment & Plan (1) Adjustment disorder: Code(s): F43.20 - Adjustment disorder, unspecified (2) Pre-bariatric surgery psychological evaluation: Code(s): Z71.89 - Other specified counseling Plan The patient is not yet cleared, as the behavioral health assessment is still in progress. She will return next week to finish. Next heidi: 01/11/2025 at 1pm, Telehealth-video Telehealth Telehealth Telehealth Platform: [employer] Location of provider rendering services: other Location of patient: address on file Patient Identification confirmed using: Name, : Yes Telehealth method: video Patient verbally consented to treatment: Yes Patient verbally consented to billing insurance company: Yes Patient informed of any privacy concerns related to visit: Yes Minutes spent on Phone/Video with Pt.: 45 Coding Level of Care Code Established Pt Tele Psytx 45 mins ([id number]) Patient Type Established Diagnoses Adjustment disorder F43.20 Pre-bariatric surgery psychological evaluation Z71.89 Time Spent (min) 45
== END 2025-01-06 11:16 | disposition home or self-care (01) ==
LOC: HO.HBST 10:17
PROVIDERS: PCP Internal Medicine; Visit Provider Counselor Mental Health
DX: F43.20 Adjustment disorder, unspecified (principal); Z71.89 Other specified counseling
CPT/HCPCS: 90834

== ENCOUNTER 2025-01-11 13:23 | Outpatient (AMB) | payer OTHER, SELFPAY ==
--- NOTE | 2025-01-11 13:00 | MHC.WMTHER ---
Intake Intake Visit Reasons: VIDEO BH F/U Allergies No Known Allergies Allergy (Verified 12/30/24 08:56) [facility] Medical History Hyperpigmentation of skin History of vitamin D deficiency Skin lesion of lower extremity delivery delivered Vitamin D deficiency Morbid obesity Lumbago Breast asymmetry in female Large breasts Surgical History History of excision of lesion History of Family History Father Diabetes Hypertension Paternal Grandfather Hypertension Substance use disorder Mother Hypertension Asthma Hyperparathyroidism Hypothyroid Bipolar disorder Maternal Grandfather Substance use disorder Maternal Grandmother Substance use disorder Paternal Grandmother Substance use disorder Social History Housing: House Are you a primary career development manager to a significant other at home: No Do you presently have visiting nurse or other home services: No Alcohol intake: never Patient Tobacco Use Status: Never used Tobacco e-Cigarette/Vaping Use: Never Used Substance Use Type: Marijuana service: No Current occupational status: unemployed Cognitive needs: No Hearing needs: No Vision needs: Yes Behavioral Health Assessment Weight Management Therapy Therapy Notes Details The patient is a 24-year-old female presenting for a follow-up visit to finalize her behavioral health assessment for the surgical weight loss program. She was referred by her PCP after insurance denied coverage for weight loss injections. She began the program on 12/12/2024 at 217 lbs and most recently weighed 202 lbs (as of 01/03/2025). Her goal is to achieve a healthier lifestyle and sustainable weight loss. The patient reports a long history of being overweight, noting she weighed 130 lbs at age 10, 179 lbs at age 18 (2019), and 185 lbs pre-. She has not weighed under 200 lbs since giving . Over the past 10 years, her weight has ranged from a low of 170 lbs to a high of 235 lbs. She attended counseling briefly at age 6 following her parents' divorce but denies any history of psychiatric hospitalization, mental health crises, or substance use. There are no current or past concerns related to suicidal ideation, self-harm, or harm to others. Though her initial BES scores suggested moderate to high risk for binge eating, discussion revealed these were more reflective of long-standing unhealthy eating habits rather than signs of an eating disorder. She reports no emotional or stress-related eating. PHQ scores are within normal limits, and her mental status exam shows no impairments in functioning. Presenting Concerns Referral Source WMP- Provider Reason for referral Completion of behavioral health assessment as part of process for weight-loss surgery. Precipitating Event Obesity Living Situation Current Living Situation Rent At risk of losing current housing? No Satisfied with current living situation? Yes Comments PT lives with her 2 year old son. Food/Weight/Diet Expectations of change PT stated the program on 12/12/2024 at 217Lbs, and the most recent weight was 202Lbs as of 01/03/2025. Her goal is to have a healthier lifestyle and be at a healthy weight PT is implementing the following: Current meal plan: 2 shakes, 2 bars, and 1 meal. (sometimes doesn't eat the last bar) Exercise plan: Gym and group exercises. She has a treadmill at home. Tries to exercise daily. Scale: Yes. Communication with the provider: Yes. Tuesdays. History/Relationship with food The patient reports a history of disordered eating, including an inconsistent meal schedule and frequently skipping meals during the day. She often snacks on quick, convenient items and typically consumes her largest meal at dinner. These dinners are often Burmese-style, consisting of larger portions and multiple carbohydrate sources in a single meal. History/Relationship with weight PT reports she has always been overweight. When she was 10 years old she was around 130 lbs. In 2019 (age 18), she was 179 lbs. pre- she was 185 lbs, after , she has never been under 200 Lbs. In the last 10 years, the patient's Lowest weight was 170Lbs and the highest 235Lbs. History/Relationship with dieting Shaklee (shakes, supplements, and portion control) October/2024 started at 235Lbs, lost about 19Lbs in almost 2 months. Truvy weight loss pills in 2021 - Lost 20 lbs. Gained all the weight back. In 2023 again. Manager Application Development plan - 2021. Phentermine (started on October by her PCP - Now by Dr. Hill) Binge Eating Do you frequently eat large amounts of food in short periods of time, not feeling physically hungry? No Do you feel out of control when you eat a large amount of food in a short period of time? No Do you eat large amounts of food rapidly and typically alone? No Night Eating Do you wake up at least once during the night to eat? No If you wake up in the night, do you find that it is necessary to eat something in order to fall back asleep? No Do you have little or no appetite in the morning and feel very hungry in the evening, often overeating between dinner and when you go to bed? No Social History Family history and relationship PT is a single mother. She has a 2 y/o son, she reports having a good relationship with the son's father. Father in 2020. Mother alive. She has 5 siblings total, 3 stepsisters from her stepfathers, and 2 from mom's side. 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 Developmental history and status None reported Currently WNL. Social support Son's father, mother, sister. Community support Supports for her son who has Autism. 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 Sikh/Spirituality Raised as Buddhism. Currently visiting [place]. Cultural/Ethnic information Born in [place]. Moved to [place] in 2019. Legal Involvement and History Current or historical involvement with the legal system? None reported. Education Highest grade completed HS Preferred learning style Learn by doing and Visual Currently enrolled in educational program? No Interested in further educational program? 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 Actively looking. She is waiting for D[employer] classes. Employment Employment Status Unemployed Wants help to find employment? Yes Meaningful activities Baking, family activities, and outdoor activities. Financial Situation Describe current financial situation Occasional struggle Financial assistance? Child Support, [place] and Other ([facility]) Service Service? No Mental Health and Addiction Treatment Current/Past substance abuse? No Comments Alcohol: None. Cigarettes/Tobacco: None Cannabis/Edibles: None Current/Past addictive behavior concerns? No Psychiatric history The patient reported attending counseling around age 6, following her parents' divorce. She denies any history of psychiatric hospitalization or mental health crises. There is no history or current concern regarding suicidal ideation, suicide attempts, self-harm, or risk of harm to others. Medical and Physical Health Summary Additional Medical History not covered in history None aditional Sexual History concerns None reported Physical exam in the last year? Yes Pain Screening Current pain? Yes Pain in the last few months? Yes Comments Back pain due to large breast. Medications Is the patient compliant with medications? Yes Does the patient have Jacob Guardian in place? Not applicable Does the patient use complimentary health approaches? No Trauma/Abuse History History of trauma? No Questionnaires PHQ-9 Over the last 2 weeks, how often have you been bothered by any of the following problems? 1. Little interest or pleasure in doing things: not at all 2. Feeling down, depressed, or hopeless: not at all 3. Trouble falling or staying asleep, or sleeping too much: not at all 4. Feeling tired or having little energy: not at all 5. Poor appetite or overeating: not at all 6. Feeling bad about yourself - or that you are a failure or have let yourself or your family down: not at all 7. Trouble concentrating on things, such as reading the newspaper or watching television: not at all 8. Moving or speaking so slowly that other people could have noticed. Or the opposite - being so fidgety or restless that you have been moving around a lot more than usual: not at all 9. Thoughts that you would be better off or of hurting yourself in some way: not at all Total score: 0 Depression Screening Interpretation: Negative Depression Screening Done: Yes 32020 - PHQ-9 Billing: Yes Source: Developed by Drs. Wolf Goodwin, Lili Vasquez, José Norris and colleagues, with an educational thom from [employer]. Assessment & Plan Assessment & Plan (1) Adjustment disorder: Code(s): F43.20 - Adjustment disorder, unspecified (2) Pre-bariatric surgery psychological evaluation: Code(s): Z71.89 - Other specified counseling Plan The patient has been cleared from the behavioral health standpoint and may proceed with submission when ready. She will continue meeting with this provider for monthly follow-up and support. Next appointment: 02/08/2025 at 1:00 PM (video). Telehealth Telehealth Telehealth Platform: [employer] Location of provider rendering services: other Location of patient: address on file Patient Identification confirmed using: Name, : Yes Telehealth method: video Patient verbally consented to treatment: Yes Patient verbally consented to billing insurance company: Yes Patient informed of any privacy concerns related to visit: Yes Minutes spent on Phone/Video with Pt.: 30 Coding Level of Care Code Established Pt Tele Psytx 30 mins (30928) Patient Type Established Diagnoses Adjustment disorder F43.20 Pre-bariatric surgery psychological evaluation Z71.89 Additional Codes PHQ-9 - 76577 - PHQ-9 Billing: Yes ([id number]) Time Spent (min) 30
== END 2025-01-11 13:37 | disposition home or self-care (01) ==
LOC: HO.HBST 13:23
PROVIDERS: PCP Internal Medicine; Visit Provider Counselor Mental Health
DX: F43.20 Adjustment disorder, unspecified (principal); Z71.89 Other specified counseling
CPT/HCPCS: 90832

== ENCOUNTER 2025-01-12 09:34 | Outpatient (REF) | payer OTHER, SELFPAY ==
--- NOTE | ~2025-01-12 | FL_ITS ---
EXAMINATION: XR FLUOROSCOPY UPPER GI WITH AIR CLINICAL INFORMATION: Moderate to severe obesity due to excess calories COMPARISON: None available. TECHNIQUE: Routine upper GI air contrast study was performed in upright and lying position. FINDINGS: Following oral administration of thick barium and effervescent granules there is normal propagation bolus from the oral cavity through the pharynx, esophagus into stomach without obstruction, narrowing or stricture. No retention of barium seen in the valleculae or piriform sinuses. No laryngeal aspiration. On placing patient in supine and prone lying there is good opacification of stomach and the duodenum. The course, caliber and peristalsis of the stomach, duodenal bulb and sweep is normal. There is no gastroesophageal reflux or hiatal hernia. FLUOROSCOPY TIME: 1 minute 1 second DOSE AREA PRODUCT: 23.56 uGy-m2 (microgray-meter squared) FL/FL upper GI w air IMPRESSION: Unremarkable upper GI air contrast study. Electronically signed by: Elliot Guerrero MD 01/12/2025 04:11 PM EDT
== END 2025-01-12 09:35 | disposition home or self-care (01) ==
LOC: HO.XRAY 09:34
PROVIDERS: PCP Internal Medicine; Visit Provider Surgery
DX: E66.01 Morbid (severe) obesity due to excess calories (principal)
CPT/HCPCS: 74246

== ENCOUNTER → 2025-01-12 09:36 | Outpatient (BNV) | payer OTHER, SELFPAY | PROVIDERS: PCP Internal Medicine; Visit Provider Radiology Diagnostic Radiology | DX: E66.01 Morbid (severe) obesity due to excess calories (principal) | CPT/HCPCS: 74246 ==

== ENCOUNTER 2025-01-24 08:20 | Outpatient (AMB) | payer OTHER, SELFPAY ==
[2025-01-23 18:56] VITALS: BMI 40.8
--- NOTE | 2025-01-23 18:56 | MHC.OFFVISWM ---
VS Expanded 01/23/25 18:56 Height 4 ft 11 in Weight 202 lb 4 oz BMI 40.8 Body Fat % 52.7 Body Fat Mass 106.6 Fat Free Mass 96 Visceral Fat Rating 22 Body Water % 32.5 Body Water Mass 65.7 Basal Metabolic Rate/Score 1,309 Intake Visit Reasons: TV Pre Op LSG 01/30/2025 Allergies No Known Allergies Allergy (Verified 01/23/25 19:02) Medication List - Last Reconciled 01/23/25 by Yazan East MD cholecalciferol (vitamin D3) 125 mcg PO DAILY mecobalamin (vitamin B12) 1,000 mcg sublingual DAILY ondansetron 4 mg PO Q12H pantoprazole 40 mg PO DAILY phentermine 37.5 mg PO QAM polyethylene glycol 3350 17 grams PO DAILY sucralfate 10 mL PO BID HPI HPI TV Pre Op LSG 01/30/2025: Details: Start time: 11.30am, End time: 12pm I spent 25 minutes speaking with the patient on the phone plus an additional 5 minutes reviewing and updating records for a total of 30 minutes HPI Comments Details: Overall weight loss: 15.3lbs, or 7.03% TBWL Is doing 2 Premier shakes (4oz of Premier mixed with 4oz almond milk), 2 Fit Crunch protein bars and one meal (8 forks of meat and 8 forks of salad or vegetables) Exercise: treadmill x5/wk for 400 calories PFS Medical History Hyperpigmentation of skin History of vitamin D deficiency Skin lesion of lower extremity delivery delivered Vitamin D deficiency Morbid obesity Lumbago Breast asymmetry in female Large breasts Surgical History History of excision of lesion History of Family History Father Diabetes Hypertension Paternal Grandfather Hypertension Substance use disorder Mother Hypertension Asthma Hyperparathyroidism Hypothyroid Bipolar disorder Maternal Grandfather Substance use disorder Maternal Grandmother Substance use disorder Paternal Grandmother Substance use disorder Social History Housing: House Are you a primary occasional caregiver to a significant other at home: No Do you presently have visiting nurse or other home services: No Alcohol intake: never Patient Tobacco Use Status: Never used Tobacco e-Cigarette/Vaping Use: Never Used Substance Use Type: Marijuana service: No Current occupational status: unemployed Cognitive needs: No Hearing needs: No Vision needs: Yes Physical Exam Vital Signs: BMI result Body Mass Index 40.8 Telehealth Telehealth Telehealth Platform: Telephone Location of provider rendering services: practice address Location of patient: address on file Patient Identification confirmed using: Name, : Yes Telehealth method: voice only Patient verbally consented to treatment: Yes Patient verbally consented to billing insurance company: Yes Patient informed of any privacy concerns related to visit: Yes Minutes spent on Phone/Video with Pt.: 30 Assessment & Plan Assessment & Plan (1) Morbid obesity: Code(s): E66.01 - Morbid (severe) obesity due to excess calories Category: Medical Plan: 1. Plan for lap sleeve gastrectomy including upper GI endoscopy. All tests has been completed and reviewed and the patient is cleared for the surgery. If diaphragmatic or ventral hernias are present at time of surgery, these will be repaired laparoscopically as well. The surgery does not replace the need to change your lifestlyle which is the cause of the obesity problem. The surgery provides the motivation to try again to change your lifestyle, it reduces the appetite and make the transition to a better lifestyle easier and doubles the amount of weight you would lose compared to doing the lifestyle change without the surgery. You will need to be on a liquid diet with protein shakes for 2 weeks before surgery to maximize weight loss and boost your nutritional status to recover better from surgery and also for the first two weeks after surgery to let the stomach heal before we introduce other foods. After the first 2 weeks we will introduce protein bars and soft foods like scrambled eggs, cottage cheese and yogurt and after the 6th week will introduce meat, fish and cooked vegetables in small amounts. Over time you should be able to eat everything in small amounts. Side effects like nausea, vomiting, heartburn or abdominal pain are not common in the practice unless you are not following in the practice. This operation requires lifetime commitment to following in our practice and communication with me. You will much less weight and experience side effects if you don?t communicate or not following in the practice. Complications are rare and in our practice is about 1/10 of the national average. However, you can develop bleeding that may require transfusion (hasn?t happened for year in the practice), you may from complications (we did not have any deaths in the practice) and infections. Infections are usually a result of breakdown in communication or not understanding or following directions correctly. They are difficult to treat, they can happen during the first 6 weeks, they may require to be in the hospital for weeks or even months, not being able to eat by mouth and you may have drains and surgeries to try and correct the issue. Other risks and complications include possible conversion to an open procedure, leaks, small bowel obstruction, blood clots, cardiac, or pulmonary complications, as long term care administrator complications such as ulcers, insufficient weight loss and vitamin deficiencies. So far she has proven to be an excellent communicator and very compliant with all our directions accomplishing a great weight loss. I believe that she is an excellent candidate and she is ready. 2. Preop prescriptions were provided and explained the purpose of each one. Need to be purchased preop. Start Pantoprazole now as you get it from the pharmacy, 1 pill per day. Sucralfate and Zofran are for after surgery as needed. 3. Bowel prep: please do 7 packets of Miralax mixing each one with a an 8oz glass of water, crystal light, gatorade zero, or propel on 01/28/25 and the same amount on 01/29/25. The Miralax you begin with one packet at a time in 8oz water or crystal light, gatorade zero, or propel as early in the day as you can and you do them back to back until you finish them. Continue the protein shakes during the bowel prep. 4. Needs to purchase 1oz medicine cups . 5. Needs to purchase Children's liquid Tylenol for postop pain control. 6. Avoid aspirin, motrin, Advil, Aleve, Ibuprofen, Naproxyn. Tylenol is OK. 7. She needs to purchase the Celebrate multivitamins from the hospital's gift shop. 8. Will do basic preop blood work-up any day between Thursday01/24/25 and Thursday01/27/25 fasting for 12 hours and is scheduled to see the Anesthesiologist prior to the day of surgery. 9. Importance of adherence to postop follow-up and recommendations was underscored and she understands that. 10. Stop food and bars as of Thursday01/24/25 and continue with 5 PREMIER premade protein shakes (mix 6oz of Premier shake with 4oz almond milk) at 8am-10am, 11am-1pm, 2pm-4pm, 5pm-7pm and at 8pm-10pm 11. No soups, broths or V8 12. The patient's medical history has been reviewed and they are considered low risk for post op DVT and therefore DVT prophylaxis is not considered necessary. Travel after surgery was reviewed. The patient has not disclosed any travel plans during the first 30 days after surgery and they have been advised that within the first 30 days after surgery any bus, plane, train or car travel over 2 hours in duration is contraindicated due to the possibility of developing blood clots from immobility. Any travel, needs to include periods of ambulation of 10 minutes in duration every 2 hours. Patient was instructed to discuss any plans for travel during this period with their bariatric surgeon. 13. Please take at the day of surgery the following medications: NONE 14. Stop any control pills and don't use them for one month after surgery 15. Absolutely no smoking or vaping, or marijuana until the surgery and for at least the first 4 weeks. Only nicotine patches are allowed. 16. Send me weight measurements on Thursday01/24/25 and then on Thursday01/29/25, the day of surgery before you go to the hospital. 17. Avoid any steroids by mouth for any reason. Let me know if someone prescribes them to you 18. These instructions supersede anything else you read in the handbook, anything you watched in videos or classes or you were told by any other provider. If there is any conflict, you follow the above instructions and nothing else. Orders: Orders Comprehensive Met. Panel 01/23/25 E66.01 - Morbid (severe) obesity due to excess calories Prothrombin Time INR 01/23/25 E66.01 - Morbid (severe) obesity due to excess calories Type and Screen 01/23/25 E66.01 - Morbid (severe) obesity due to excess calories C Reactive Protein 01/23/25 E66.01 - Morbid (severe) obesity due to excess calories Complete Blood Count Auto Diff 01/23/25 E66.01 - Morbid (severe) obesity due to excess calories Insulin 01/23/25 E66.01 - Morbid (severe) obesity due to excess calories Lipid Panel 01/23/25 E66.01 - Morbid (severe) obesity due to excess calories TSH reflex Free T4 01/23/25 E66.01 - Morbid (severe) obesity due to excess calories Partial Thromboplastin Time 01/23/25 E66.01 - Morbid (severe) obesity due to excess calories Hemoglobin A1c 01/23/25 E66.01 - Morbid (severe) obesity due to excess calories Medications: New ondansetron Only take one every 12 hours as needed if you have nausea 4 mg PO Q12H 20 tabs 0RF nausea and vomiting R11.0 - Nausea polyethylene glycol 3350 Mix each measuring cup with 8oz of water, Crystal light, or Gatorade zero, or Propel and do 7 measuring cups on 01/28/25 and another 7 measuring cups on 01/29/25 17 grams PO DAILY 238 grams 0RF Z01.818 - Encounter for other preprocedural examination pantoprazole 40 mg PO DAILY 90 tabs 0RF K21.9 - Gastro-esophageal reflux disease without esophagitis sucralfate 10 mL PO BID 600 mL 2RF K21.9 - Gastro-esophageal reflux disease without esophagitis
== END 2025-01-24 12:08 | disposition home or self-care (01) ==
LOC: HO.HBS 08:20
PROVIDERS: PCP Internal Medicine; Visit Provider Surgery
DX: E66.01 Morbid (severe) obesity due to excess calories (principal); Z68.41 Body mass index [BMI] 40.0-44.9, adult
CPT/HCPCS: 99499

== ENCOUNTER → 2025-01-27 08:59 | Outpatient (BNVA) | payer OTHER, SELFPAY | PROVIDERS: PCP Internal Medicine; Visit Provider Physician Assistant Surgical ==

== ENCOUNTER 2025-01-30 10:56 | Inpatient (IN) | payer OTHER, SELFPAY ==
[2025-01-27 09:01] LABS: MANUAL DIFF FLAG NO
[2025-01-27 09:12] LABS: Basophils Percent Auto 0.3 % (0-2); Eosinophils Absolute Auto 0.3 X10*3/uL (0.0-0.4); Eosinophils Percent Auto 4.1 % (0-4); Hematocrit 39.6 % (37.0-47.0); Hemoglobin 13.1 g/dl (12.0-16.0); Imm Gran Abs Auto 0.01 X10*3/uL (0.00-0.03); Imm Gran Pct Auto 0.2 % (0.0-0.4); Lymphocytes Absolute Auto 2.4 X10*3/uL (1.2-4.9); Mean Corpuscular HGB Conc 33.1 g/dl (31.0-35.0); Mean Corpuscular Hemoglobin 28.2 pg (27.0-33.0); Mean Corpuscular Volume 85.3 fL (80.0-98.0); Mean Platelet Volume 10.5 fL (9.4-12.3); Monocytes Absolute Auto 0.5 X10*3/uL (0.1-1.2); Monocytes Percent Auto 7.5 % (2-11); Neutrophils Percent Auto 48.9 % (45-73); Platelet Count 334 X10*3/uL (160-400); Red Blood Count 4.64 X10*6/uL (4.20-5.50); Red Cell Distribution Width 12.8 % (11.0-16.0); White Blood Count 6.2 X10*3/uL (4.8-10.8)
[2025-01-27 09:21] LABS: Prothrombin Time 11.3 SEC (10.9-12.4)
[2025-01-27 09:23] LABS: Partial Thromboplastin Time 30.5 SEC (26.0-36.8)
[2025-01-27 09:29] LABS: Estimated Average Glucose 108 mg/dL; Hemoglobin A1C 120.9107 umol/L; Hemoglobin A1c % 5.4 % (<6.0); Total Hemoglobin (HGBA1C) 3442.1409 umol/L
[2025-01-27 09:50] LABS: Alanine Aminotransferase 18 U/L (0-31); Albumin Level 4.2 g/dL (3.5-5.0); Alkaline Phosphatase 58 U/L (39-117); Anion Gap 9 (12-20); Aspartate Amino Transferase 20 U/L (5-31); Bilirubin Total 0.4 mg/dL (0.0-1.0); Blood Urea Nitrogen 14 mg/dL (9-16); C Reactive Protein 0.25 mg/dL (< or = 0.50); Calcium 9.1 mg/dL (8.4-10.2); Carbon Dioxide 29 mmol/L (22-29); Chloride 107 mmol/L (96-108); Cholesterol 186 mg/dL (<200); Estimated Glomerular Filt Rate > 60; Glucose Random 95 mg/dL (60-115); HDL Cholesterol 37 mg/dL (>40); LDL Cholesterol Calculated 138 mg/dL (<100); Potassium 3.5 mmol/L (3.3-5.1); Sodium 141 mmol/L (135-145); Total Protein 7.4 g/dL (6.5-8.0); Triglycerides 58 mg/dL (<150)
[2025-01-27 10:01] LABS: TSH reflex Free T4 1.23 uIU/mL (0.32-4.0)
[2025-01-27 11:25] LABS: Insulin 13 uU/mL (2-29)
[2025-01-27 12:16] VITALS: BMI 39.8
[2025-01-30] VITALS (13 sets, daily range): BP systolic 87–120; BP diastolic 38–68; PULSE 69–89; RESP 16–22; TEMP 36.1–36.9; O2SAT 94–100; BMI 39.8
[2025-01-30 11:01] LABS: UPreg QC Valid YES; Urine Pregnancy NEGATIVE (NEGATIVE)
[2025-01-30] MEDS: Lactated Ringers 1,000 ML 100 ML IVCONT ×2 (11:03→17:07)
[2025-01-30] MEDS: Lactated Ringers 1,000 ML 999 ML IV (11:04)
[2025-01-30] MEDS: Aprepitant 32 MG/4.4 ML VIAL IVPUSH (11:18)
--- NOTE | 2025-01-30 12:15 | P.CONAN_ITS ---
Documented by User: Mercedes Villafuerte NP 01/27/25 13:49 HPI - Anesthesia Eval Consult details Narrative: 24yo F for Gastrectomy Sleeve,EGD,possible Diaphragmatic Hernia,possible Ventral Hernia,possible Open BMI 40.8 PMFSH Active Problems Active Problems: All Active Problems Vitamin B12 deficiency (Acute) Hyperpigmentation of skin (Acute) Fatigue (Acute) History of vitamin D deficiency (Acute) Skin lesion of neck (Acute) Vitamin D deficiency (Acute) Morbid obesity (Acute) Lumbago (Acute) Breast asymmetry in female (Acute) Large breasts (Acute) Past Medical History Medical History Hyperpigmentation of skin Skin lesion of lower extremity delivery delivered Vitamin D deficiency Morbid obesity Lumbago Breast asymmetry in female Large breasts Family History Family History Father Diabetes Hypertension Paternal Grandfather Hypertension Substance use disorder Mother Hypertension Asthma Hyperparathyroidism Hypothyroid Bipolar disorder Maternal Grandfather Substance use disorder Maternal Grandmother Substance use disorder Paternal Grandmother Substance use disorder Family history of problems with anesthesia: No Surgical History Surgical History History of esophagogastroduodenoscopy (EGD) History of excision of lesion History of History of Problems with Anesthesia: No Social History Social History Housing: House Are you a primary childcare center director to a significant other at home: No Do you presently have visiting nurse or other home services: No Alcohol intake: never Patient Tobacco Use Status: Never used Tobacco e-Cigarette/Vaping Use: Never Used Use of substances other than those prescribed or required for medical reasons: No Substance Use Type: Marijuana Have you been hit, kicked, punched, or otherwise hurt by someone within the past year? If so, by whom?: No Are you DNR?: No Advance Directives: No Advance Directives Information Provided: Yes Advance Directives on File: No Patient : No : No Poor oral hygiene: Yes service: No Current occupational status: unemployed Cognitive needs: No Hearing needs: No Vision needs: Yes Meds Allergies Allergy/AdvReac Type Severity Reaction Status Date / Time No Known Allergies Allergy Verified 01/30/25 10:47 Exam Height,Weight and Vital Signs: Height 4 ft 11 in Weight 89.358 kg Pertinent Lab Results Pertinent Lab Results: Lab Results 01/27/25 Range/Units 08:45 WBC 6.2 (4.8-10.8) X10*3/uL RBC 4.64 (4.20-5.50) X10*6/uL Hgb 13.1 (12.0-16.0) g/dl Hct 39.6 (37.0-47.0) % MCV 85.3 (80.0-98.0) fL MCH 28.2 (27.0-33.0) pg MCHC 33.1 (31.0-35.0) g/dl RDW 12.8 (11.0-16.0) % Plt Count 334 (160-400) X10*3/uL MPV 10.5 (9.4-12.3) fL Immature Gran % (Auto) 0.2 (0.0-0.4) % Neut % (Auto) 48.9 (45-73) % Lymph % (Auto) 39.0 (20-40) % Ware % (Auto) 7.5 (2-11) % Eos % (Auto) 4.1 H (0-4) % Baso % (Auto) 0.3 (0-2) % Lymph # (Auto) 2.4 (1.2-4.9) X10*3/uL Ware # (Auto) 0.5 (0.1-1.2) X10*3/uL Eos # (Auto) 0.3 (0.0-0.4) X10*3/uL Baso # (Auto) 0.0 (0.0-0.2) X10*3/uL Abs Immat Gran (auto) 0.01 (0.00-0.03) X10*3/uL Absolute Neuts (auto) 3.0 (2.0-8.3) x10*3/uL Absolute Nucleated RBC 0.000 (0.0-0.012) X10*3/uL Nucleated RBC % (auto) 0.0 (0.0-0.2) /100WBC PT 11.3 (10.9-12.4) SEC INR 1.0 (0.9-1.1) APTT 30.5 (26.0-36.8) SEC Sodium 141 (135-145) mmol/L Potassium 3.5 (3.3-5.1) mmol/L Chloride 107 (96-108) mmol/L Carbon Dioxide 29 (22-29) mmol/L Anion Gap 9 L (12-20) BUN 14 (9-16) mg/dL Creatinine 0.61 (0.5-1.4) mg/dL Estim Creat Clear Calc TNP Estimated GFR > 60 Random Glucose 95 (60-115) mg/dL Estimat Average Glucose 108 mg/dL Hemoglobin A1c % 5.4 (<6.0) % Insulin Level 13 (2-29) uU/mL Calcium 9.1 (8.4-10.2) mg/dL Total Bilirubin 0.4 (0.0-1.0) mg/dL AST 20 (5-31) U/L ALT 18 (0-31) U/L Alkaline Phosphatase 58 (39-117) U/L C-Reactive Protein 0.25 (< or = 0.50) mg/dL Total Protein 7.4 (6.5-8.0) g/dL Albumin 4.2 (3.5-5.0) g/dL Triglycerides 58 (<150) mg/dL Cholesterol 186 (<200) mg/dL LDL Cholesterol, Calc 138 H (<100) mg/dL HDL Cholesterol 37 L (>40) mg/dL TSH 1.23 (0.32-4.0) uIU/mL Blood Type A Positive Antibody Screen NEGATIVE Narrative Narrative: EKG 11/2024 Vent. Rate : 69 BPM Atrial Rate : 69 BPM P-R Int : 154 ms QRS Dur : 88 ms QT Int : 374 ms P-R-T Axes : 28 30 17 degrees QTcB Int : 400 ms Normal sinus rhythm Normal ECG No previous ECGs available Assessment and Plan Assessment Anesthesia Assessment: Chart Reviewed Final Anesthetic Review Family History of Problems with Anesthesia: No History of Problems with Anesthesia: No Documented by User: Mercedes Solo DO 01/30/25 13:18 HPI - Anesthesia Eval Consult details Narrative: 24yo F for Gastrectomy Sleeve,EGD,possible Diaphragmatic Hernia,possible Ventral Hernia,possible Open BMI 39.8 PMFSH Past Medical History Medical History Hyperpigmentation of skin Skin lesion of lower extremity delivery delivered Vitamin D deficiency Morbid obesity Lumbago Breast asymmetry in female Large breasts Family History Family History Father Diabetes Hypertension Paternal Grandfather Hypertension Substance use disorder Mother Hypertension Asthma Hyperparathyroidism Hypothyroid Bipolar disorder Maternal Grandfather Substance use disorder Maternal Grandmother Substance use disorder Paternal Grandmother Substance use disorder Family history of problems with anesthesia: No Surgical History Surgical History History of esophagogastroduodenoscopy (EGD) History of excision of lesion History of History of Problems with Anesthesia: No Social History Social History Housing: House Are you a primary childcare center director to a significant other at home: No Do you presently have visiting nurse or other home services: No Alcohol intake: never Patient Tobacco Use Status: Never used Tobacco e-Cigarette/Vaping Use: Never Used Use of substances other than those prescribed or required for medical reasons: No Substance Use Type: Marijuana Have you been hit, kicked, punched, or otherwise hurt by someone within the past year? If so, by whom?: No Are you DNR?: No Advance Directives: No Advance Directives Information Provided: Yes Advance Directives on File: No Patient : No : No Poor oral hygiene: Yes service: No Current occupational status: unemployed Cognitive needs: No Hearing needs: No Vision needs: Yes Meds Allergies Allergy/AdvReac Type Severity Reaction Status Date / Time No Known Allergies Allergy Verified 01/30/25 10:47 Exam Exam Date and Time: 01/30/25 1215 Height,Weight and Vital Signs: Height 4 ft 11 in Weight 89.358 kg Vital Signs Temperature 98.2 F 01/30/25 11:30 Pulse Rate 89 01/30/25 11:30 Respiratory Rate 18 01/30/25 11:30 Blood Pressure 115/64 01/30/25 11:30 Pulse Oximetry 100 01/30/25 11:30 Oxygen Delivery Method Room Air 01/30/25 11:30 Temperature 98.2 F 01/30/25 11:30 Pulse Rate 89 01/30/25 11:30 Respiratory Rate 18 01/30/25 11:30 Blood Pressure 115/64 01/30/25 11:30 Pulse Oximetry 100 01/30/25 11:30 Oxygen Delivery Method Room Air 01/30/25 11:30 Airway Mallampati Class: I TM Dist: <=3cm Neck ROM: Full Loose/Missing/Broken Teeth: Yes (broken molar right lower jaw) Heart: S1S2 Lungs: CTAB Assessment and Plan Assessment Anesthesia Assessment: Anesthesia Plan Discussed and Chart Reviewed Final Anesthetic Review Family History of Problems with Anesthesia: No History of Problems with Anesthesia: No NPO: Yes ASA Class: II Final Preanesthetic Review: No Changes in Pt Med Stat, Meds/Allgs Chart Reviewed, Consent Obtained/Reviewed (manager risk management at bedside for translation) and Anes Risks/Benef Reviewed Patient Risk: Low Procedure Risk: Intermediate Anesthetic Plan Anesthetic Plan: GA and Agree w/ Assess. and Plan Disposition: Standard PACU
--- NOTE | 2025-01-30 12:35 | MHC.SHP ---
Pre-Procedural Eval Section A - 24 Hr Update-Section A only Date of Service: 01/30/25 The patient is an INPATIENT: Yes The patient has been examined within 24 hours of the surgical procedure. The History & Physical has been completed within 30 days and I have reviewed it.: Yes Section B - Complete if H&P > 30 days Chief Complaint: Morbid obesity Relevant Family History (Specify if Yes): No Relevant Social History: None Present Medications: None Medical History: No relevant PMH History of Previous Operations: No relevant previous surgery Allergies: Allergies Allergy/AdvReac Type Severity Reaction Status Date / Time No Known Allergies Allergy Verified 01/30/25 10:47 Review of Systems Sugical H&P ROS: Negative: Constitution, Cardiovascular, Respiratory, Neurological, Psychiatric, Hem-Onc, Allergic/Immunologic, Gastrointestinal, Genitourinary, Musculoskeletal, Integumentary, Endocrine and Eyes/Ears/Nose/Throat Exam Surgical H&P Exam: Normal: HEENT, Normal: Heart, Normal: Lungs, Normal: Extremities, Normal: Abdomen, Normal: Skin and Normal: Neurological Plan Diagnosis/Plan: Unchanged I have reviewed the history and physical and performed a pertinent physical examination on my patient. No changes have occurred unless specified. Time Spent With Patient Time: Total time managing care of this patient today ____ minutes.
[2025-01-30] MEDS: ceFAZolin Sodium/Dextrose,Iso 2 GM/50 ML PIGGYBACK IV ×2 (12:45→18:36)
--- NOTE | 2025-01-30 15:18 | PHA.MEDREC ---
Pharmacy Consult ? Medication Reconciliation Pharmacy has completed the medication reconciliation.Med rec done by nursing, reviewed by pharmacy
--- NOTE | 2025-01-30 15:37 | PM.DS ---
DS: Providers Provider Date of Service: 01/31/25 Date of admission: 01/30/25 10:56 Date of discharge: 01/31/25 Primary care physician: Millie Artis MD DS: Summary Hospital Course Hospital Course: ADMITTING DIAGNOSIS: morbid obesity, lumbago DISCHARGE DIAGNOSIS: same, s/p laparoscopic sleeve gastrectomy and gastropexy PAST SURGICAL HISTORY:? PROCEDURE: upper endoscopy, laparoscopic sleeve gastrectomy and gastropexy DISCHARGE SUMMARY: History of Present Illness: The patient is a?24 year-old woman with a BMI of?39.8 kg/m2 and associated co-morbidities as described above. The patient had extensive work-up, lost?20.7 lbs preoperatively and was electively scheduled for laparoscopic, possible open sleeve gastrectomy and gastropexy. Risks and complications of the surgery were discussed with the patient in advance, particularly the possibility of , pulmonary embolism, anastomotic leak, bleeding, bowel injury, GERD, cardiac, renal or pulmonary complications. The patient understood all the risks and was in agreement with the surgical plan. Hospital Course: The patient underwent an uneventful laparoscopic sleeve gastrectomy with gastropexy on the day of admission. Postoperatively, the patient was transferred to the surgical floor. The patient received IV acetaminophen and IV Dilaudid for pain control. Patient was started on bariatric phase 1 diet POD #0. On postoperative day one, the patient was feeling well without nausea, vomiting, fevers, or tachycardia. The patient had some mild incisional pain and the abdomen was soft.? ? On the morning of postoperative day one, the patient was continued on 1 ounce of water or ice every half hour. During the day, the patient did fairly well, having some incisional pain, but able to ambulate adequately and to tolerate liquids well. Since the patient is doing well, we decided that the patient was ready to be discharged. The patient was given instructions to follow-up in office next week and to call the office for any fever over 101, persistent abdominal pain, nausea, vomiting, GERD, symptoms of DVT such as calf tenderness, or leg swelling, or pulmonary embolism such as chest pain or shortness of breath.? The patient was also instructed to drink 40-60 ounces of liquids per day using the 1-ounce cups. The patient had been given prescriptions for Tylenol for pain, Zofran prn for nausea, and pantoprazole and carafate previously. The patient was encouraged to ambulate and use the incentive spirometer. The patient was allowed to shower, but no baths, and encouraged to stay active at home. All of these instructions were given to the patient personally. All questions were answered and the patient understood all instructions, the instructions were also given to the patient in print. Time Attestation Discharge Coordination Time (in mins): 30 Quality: Safe Use of Opioids Does Pt have an Active Cancer Diagnosis on the Problem List?: No Quality: Stroke Does the patient have a stroke diagnosis?: No Physical Exam Vital Signs: Vital Signs: Last Vital Signs Temp 97.6 F 01/30/25 15:10 Pulse 84 01/30/25 15:30 Resp 22 H 01/30/25 15:30 BP 93/40 L 01/30/25 15:30 Pulse Ox 98 01/30/25 15:30 O2 Del Method Nasal Cannula wit h Capnography 01/30/25 15:30 O2 Flow Rate 2 01/30/25 15:30 BMI result Body Mass Index 39.8 DS: Data Data Completed and Pending Pending studies at discharge: Pending at discharge 01/30/25 14:00 Surgical [PTH] Routine Labs on day of discharge: Laboratory Results - last 24 hr 01/30/25 10:30 Urine Test NEGATIVE Discharge Plan Discharge Anticipated Discharge Date/Time: 01/31/25 10:00 Patient Disposition: Home, Self-Care Discharge Diagnosis: s/p laparoscopic sleeve gastrectomy with gastropexy Referrals: Millie Artis MD [Primary Care Provider] - 1 Week Discharge Medications: Continued pantoprazole 40 mg tablet,delayed release (DR/EC) 40 mg PO DAILY Qty: 90 0RF sucralfate 100 mg/mL suspension 10 ml PO BID Qty: 600 2RF ondansetron 4 mg tablet,disintegrating 4 mg PO Q12H Qty: 20 0RF Rx Instructions: Only take one every 12 hours as needed if you have nausea Discontinued cholecalciferol (vitamin D3) 125 mcg (5,000 unit) capsule 125 mcg PO DAILY Qty: 90 0RF mecobalamin (vitamin B12) 1,000 mcg tablet,disintegrating 1,000 mcg sublingual DAILY Qty: 90 0RF Rx Instructions: place tablet under tongue and allow to dissolve for at least30 secs before swallowing polyethylene glycol 3350 17 gram/dose powder 17 g PO DAILY Qty: 238 0RF Rx Instructions: Mix each measuring cup with 8oz of water, Crystal light, or Gatorade zero, or Propel and do 7 measuring cups on 01/28/25 and another 7 measuring cups on 01/29/25 Discharge Orders: Discharge Order (Routine); Ordered 01/31/25 Ordered By: aYzan East Activity on Discharge: No heavy lifting Stand Alone Forms: Patient Portal Discharge page Print Language: Z[place]ian Care Plan Goals: weight loss Health Concerns: morbid obesity Plan of Treatment: No tub baths, sex or returning to work until discussed at first post op appointment. No alcohol, tobacco or illegal drug use. Continue to use incentive spirometer hourly while awake. Walk in home for 5- 10 minutes every 2 hours during the first week. Wear abdominal binder with activity. Follow all meal plan instructions from your bariatric surgeon. Review bariatric handbook and call with any questions. Discharge Instructions 1. Please call your doctor or come back to the emergency room should any new symptoms arise. 2. Activity: abstain from alcohol,? limited stair climbing, no bending, no driving, no exercise, no illicit substances, no lifting, no sex, no tub bath, no work. 4. Diet: follow your bariatric surgeon's recommendations for advancing diet. 5. Dressing Change/Wound Care: Your incisions are covered with waterproof dressings. You can shower with these and pat dry. Do not rub over dressings or incisions. If the area is tender, you may apply an ice pack for short intervals (no more than 20 minutes on, followed by at least 20 minutes off). Do not apply heat. Do not use creams, lotions, or topical antibiotics unless instructed to do so by your surgeon. 6. Call your doctor if: - Your temperature exceeds 101.5 F - You experience excessive pain or swelling - You have an unexpected reaction to medication - You have excessive bleeding - You experience continued vomiting/nausea - Your incision begins to separate - Your incision shows signs of infection such as increased redness, swelling, excessive pain, heat, or drainage (light blood or clear fluid is normal) General instructions: No lifting greater than 10 lbs for the next 6 weeks[address] within 24 hours of taking narcotic pain medications. If you do not move your bowels in the next 2 days, please take milk of magnesia over the counter. Please follow the post op diet and do not advance your diet until instructed by your surgeon or until you are seen in the office in about 1 week. Please walk around your home every hour or two to prevent blood clots from forming in your legs. You do not need to wake from sleeping to walk. Please sleep in a bed or couch to prevent kinking at the hips and knees. Please take your incentive spirometer (your lung mild disabilities teacher) home with you and use it for the next few days to prevent pneumonias. You may shower; no hot tubs, baths or swimming pools. Please make sure you are consuming 40-60 ounces of total fluids per day. Avoid all carbonation. Please call the office with any questions or concerns such as increasing abdominal pain, fever, chills, shortness of breath, chest pain, leg pain or swelling, or redness or drainage from your incisions. Do not hesitate to contact the office with any questions at . The patient's medical history has been reviewed and they are considered low risk for post op DVT and therefore DVT prophylaxis is not considered necessary. Travel after surgery was reviewed. The patient has not disclosed any travel plans during the first 30 days after surgery and they have been advised that within the first 30 days after surgery any bus, plane, train or car travel over 2 hours in duration is contraindicated due to the possibility of developing blood clots from immobility. Any travel, needs to include periods of ambulation of 10 minutes in duration every 2 hours.? The patient was instructed to discuss any plans for travel during this period with their bariatric surgeon. Assessment: s/p laparoscopic sleeve gastrectomy with gastropexy Discharge Date/Time: 01/31/25 09:25
[2025-01-30 15:50] LABS: Hematocrit 35.9 % (37.0-47.0); Hemoglobin 12.3 g/dl (12.0-16.0)
[2025-01-30 16:07] LABS: Anion Gap 13 (12-20); Blood Urea Nitrogen 12 mg/dL (9-16); Calcium 8.8 mg/dL (8.4-10.2); Carbon Dioxide 23 mmol/L (22-29); Chloride 107 mmol/L (96-108); Creatinine Clr Calc Pharmacy 139.5; Estimated Glomerular Filt Rate > 60; Glucose Random 95 mg/dL (60-115); Potassium 4.1 mmol/L (3.3-5.1); Sodium 139 mmol/L (135-145)
--- NOTE | 2025-01-30 16:48 | P.BOP_ITS ---
Brief Operative Note Date of Service: 01/30/25 Pre-op diagnosis: Morbid obesity Post-op diagnosis: same Procedure: INITIAL PATIENT BMI ON PRESENTATION AT OUR OFFICE: 43.9 kg/m2 LAST BMI BEFORE SURGERY: 40.4 kg/m2 COMORBIDITIES: none The patient presented to the Weight Management Program with significant obesity that was negatively impacting the patient's comorbidities as listed above. The program is a phased program with a special focus on preoperative medical weight management to promote substantial weight loss and prepare the patients for the second phase of the program: bariatric surgery. The patient participated in an intensive weekly lifestyle intervention and exercise program during which the patient has lost between the initial office visit and the last preoperative visit 19.7lbs, or 9.05% of initial actual body weight. It was deemed appropriate for the patient to now have bariatric surgery. In light of the current Covid-19 pandemic and the well documented strong association of obesity and increased risk of worse outcomes if infected with Covid-19 (REFERENCES:https://pubmed.ncbi.nlm.nih.gov/24516484/, https://pubmed.ncbi.nlm.nih.gov/66996648/), any delay in undergoing bariatric surgery may lead to the patient's worsening health condition and increased risk of more severe Covid-19 disease if infected. In addition a recent study from [facility] published in [facility] on 08/12/2021 ([email or web address]:/Use [email or web address]) found that, among patients with obesity, substantial weight loss achieved with surgery was associated with improved outcomes of COVID-19 infection. The findings suggest that obesity can be a modifiable risk factor for the severity of COVID-19 infection. In addition, the patient met the BMI-criteria for bariatric surgery based on the BMI on initial presentation. The patient should not be penalized for achieving such weight loss because it is not sustainable long-term without surgical intervention and it was achieved in preparation for bariatric surgery under my direction and based on my published research ([email or web address]:/[email or web address]).pdf and [email or web address]/pdf) that a 10% preoperative weight loss improves long-term weight loss after surgery and reduces perioperative complications. Insurance carriers such as [facility] have endorsed my recommendations and have included in their policies criteria to include a 10% preoperative weight loss requirement. PROCEDURE: Esophago-gastroscopy, laparoscopic sleeve gastrectomy and laparoscopic gastropexy INDICATIONS: This is a 24 year-old female who was electively scheduled for laparoscopic, possibly open sleeve gastrectomy. The risks and complications of the procedure were discussed with the patient in advance, particularly the possibility of ; pulmonary embolism; staple line leak; bleeding; GERD; cardiac, pulmonary, or renal complications; as well as long-term problems such as insufficient weight loss, vitamin deficiency, strictures, or ulcers. The patient understood all the risks, and was in agreement to proceed with surgery. DESCRIPTION OF PROCEDURE: After informed consent was obtained from the patient, the patient was given preoperative antibiotics, and was transferred to the operating room. After successful induction of general anesthesia, pneumatic compression devices were placed on both lower extremities. An upper endoscopy was performed next. The oropharynx and esophagus appeared to be within normal limits. There was no diaphragmatic hernia present consistent with the findings of the preoperative upper GI. The stomach was entered. Then after all fluid and air were suctioned and the stomach was fully decompressed, the scope was withdrawn and secured in the mid esophagus. The patient was then prepped and draped in the usual sterile manner, and abdominal access was established at the right upper quadrant with the Dahiana technique. A 12 mm blunt port was inserted, and the abdomen was insufflated with CO2 to a pressure of 15 mmHg. Under direct visualization, additional ports were placed, specifically two 5 mm Versi-step ports to the left upper quadrant, and a 5 mm Versi-Step port to the right upper quadrant. 1% lidocaine plain was used to infiltrate all port sites as well as all fascia defects. Following that, the patient was placed in a steep reverse Trendelenburg position. An additional 5 mm port was placed to the right flank for the Mediflex retractor that was used to retract the left lobe of the liver. The gastro-esophageal fat pad was opened with the ultrasonic device (Thcarlerbegarrison, Olympus) and the anterior esophagus and hiatus were exposed. The angle of His was opened with the ultrasonic device the fundus of the stomach from any diaphragmatic and splenic attachments. I then opened the gastrocolic ligament between the transverse colon and the greater curvature of the stomach with the ultrasonic device to enter the lesser sac and facilitate the ligation of the short gastric vessels. I started at a mid-point along the greater curvature and using the Thunderbeat, all short gastric vessels were divided all the way to the angle of His until the left violet was completely dissected at its entirety. I then divided the gastro-colic ligament distally to a distance of about 3-4 cm proximal to the pylorus. The stomach was then divided transversely with two Endo ROSENDO-45 purple and three ROSENDO-60 articulating purple loads using the [employer] stapler and loads. Every effort was made that the gastric sleeve had a tubular shape and an even caliber throughout. Once the sleeve resection was completed, the staple line of the gastric sleeve was reinforced with Hemoclips. The resected stomach was retrieved without difficulty from the Dahiana port. A gastropexy was then performed in order to prevent postoperative GERD and partial gastric volvulus. Several interrupted 2.0 Surgidac sutures were placed between the sleeve's staple line and the previously divided greater omentum and gastro-colic ligament using the Endo-Stitch device. An upper endoscopy was performed. There was no narrowing at the GE junction. The scope was easily advanced all the way to the pylorus which was clearly visualized. There was no narrowing anywhere and the sleeve's caliber was even throughout. The sleeve's staple line was inspected and there was no evidence of ischemia, bleeding or dehiscence. At that point the gastroscope was withdrawn from the patient?s mouth while we were decompressing the bowel and the stomach from any remaining air. I looked into the lesser sac to see how the sleeve was situating and it was situating well. There was no bleeding from the staple line, spleen, or short gastric vessels. The Mediflex retractor was removed, and the undersurface of the liver was inspected and there was no bleeding. The patient was placed in supine position. I closed the fascial defect of the 12 mm port site with a figure of eight #1 Polysorb suture. Then 30cc Ropivacaine plain with 10 mg of Dexamethasone were used to infiltrate the fascial closure as well as all skin incisions. At this point, the abdomen was deflated, all ports were removed under direct vision, and no bleeding was noted from any of the port sites. The skin incisions were irrigated with saline and were closed with 4-0 absorbable monofilament sutures. Steri-Strips and OpSites were used to cover all incisions. The patient was extubated and was transferred in stable condition to the recovery room for further care. I was present and performed all santillan parts of the procedure. Ms. Haji was the nutrition services assistant. There were no residents to assist with this case. Garth East MD, PhD, FACS Surgeon: Yazan East MD Anesthesia: GETA, local and other (TAP block) Was an Machine Cleaner used for this Procedure?: Yes Machine Cleaner: Monae Haji Estimated blood loss (mL): 10 IV fluids (mL): 2,300 Urine output (mL): 0 (No Gómez to record output) Pathology: other (1) Stomach, 2) Gastro-esophageal fat pad) Condition: stable Disposition: PACU
--- NOTE | 2025-01-30 16:53 | PM.PNGS ---
Subjective Subjective Date of Service: 01/31/25 Interval history: Feels well. Mild incisional pain. She is tolerating phase 1 bariatric diet Physical Exam Vital Signs: Vital Signs: Last Vital Signs Temp 97.1 F 01/30/25 16:40 Pulse 80 01/30/25 16:40 Resp 16 01/30/25 16:40 BP 108/55 L 01/30/25 16:40 Pulse Ox 98 01/30/25 16:40 O2 Del Method Nasal Cannula 01/30/25 16:40 O2 Flow Rate 2 01/30/25 16:40 BMI result Body Mass Index 39.8 GI: Inspection: Yes normal to inspection, Yes incision (clean, dry and intact) and Yes obesity Palpation (GI): Soft to palpation Extrem: Right lower extremity: normal to inspection (no calf tenderness) Left lower extremity: normal to inspection (no calf tenderness) Objective Data Active Medications Famotidine (Famotidine/Pf 20 Mg/2 Ml Vial) 20 mg IVPUSH BID ESAU Hydromorphone HCl (Hydromorphone Hcl 0.5 Mg/0.5 Ml Syringe) 0.25 mg IVPUSH Q4H PRN; Protocol PRN Reason: Pain, Severe (Pain Scale 7-10) Lactated Ringer's (Lr) 1,000 mls @ 100 mls/hr IVCONT .Q10H ESAU Cefazolin Sodium/Dextrose (Ancef) 2 gm in 50 mls @ 100 mls/hr IV POSTOP ONE Stop: 01/30/25 19:29 Acetaminophen (Ofirmev) 1,000 mg in 100 mls @ 16.7 mls/hr IV .Q6H ESAU Metoclopramide HCl (Metoclopramide Hcl 10 Mg/2 Ml Vial) 10 mg IVPUSH Q6H PRN PRN Reason: Nausea Ondansetron HCl (Ondansetron Hcl 4 Mg/2 Ml Vial) 4 mg IVPUSH Q8H PRN PRN Reason: Nausea Sodium Chloride (0.9 % Sodium Chloride Flush 3 Ml Syringe) 3 ml IVFLUSH QSHIFT [facility] 01/31/25 06:06 01/31/25 06:06 Labs: Laboratory Results - last 24 hr 01/30/25 01/30/25 10:30 15:45 Anion Gap 13 Estim Creat Clear Calc 139.5 Estimated GFR > 60 Random Glucose 95 Calcium 8.8 Urine Test NEGATIVE Procedures Date of Service Date of Service: 01/31/25 Progress Note: A&P Assessment and plan (1) Morbid obesity: Status: Acute Assessment and Plan: s/p laparoscopic sleeve gastrectomy and gastropexy Doing well Will check am labs and if OK the patient will be discharged home (2) Status post sleeve gastrectomy: Status: Acute Time Spent With Patient Time: Total time managing care of this patient today ____ minutes. Quality Stroke Does the patient have a stroke diagnosis?: No VTE Prior VTE?: No VTE Risk Level:: Surgical - moderate VTE Device Contraindication: N/A - Device Ordered VTE Drug Contraindication: N/A - Med Ordered
[2025-01-30] MEDS: Acetaminophen 1,000 MG/100 ML PIGGYBACK 16.7 MG IV (20:10)
[2025-01-30] MEDS: 0.9 % Sodium Chloride Flush 3 ML SYRINGE IVFLUSH (20:11)
[2025-01-30] MEDS: Famotidine/PF 20 MG/2 ML VIAL IVPUSH (20:11)
[2025-01-31] MEDS: Acetaminophen 1,000 MG/100 ML PIGGYBACK 16.7 MG IV (02:08)
[2025-01-31] MEDS: Lactated Ringers 1,000 ML 100 ML IVCONT (02:10)
[2025-01-31 03:35] VITALS: BP 108/52; PULSE 92; RESP 16; TEMP 36.1; O2SAT 100
[2025-01-31 06:25] LABS: Basophils Percent Auto 0.1 % (0-2); Hematocrit 40.2 % (37.0-47.0); Hemoglobin 13.3 g/dl (12.0-16.0); Imm Gran Abs Auto 0.05 X10*3/uL (0.00-0.03); Imm Gran Pct Auto 0.4 % (0.0-0.4); Lymphocytes Absolute Auto 0.8 X10*3/uL (1.2-4.9); Lymphocytes Percent Auto 7.3 % (20-40); MANUAL DIFF FLAG SCAN; Mean Corpuscular HGB Conc 33.1 g/dl (31.0-35.0); Mean Corpuscular Hemoglobin 28.1 pg (27.0-33.0); Mean Platelet Volume 10.7 fL (9.4-12.3); Monocytes Absolute Auto 0.2 X10*3/uL (0.1-1.2); Neutrophils Absolute Auto 10.1 x10*3/uL (2.0-8.3); Neutrophils Percent Auto 90.2 % (45-73); Platelet Count 361 X10*3/uL (160-400); Red Blood Count 4.73 X10*6/uL (4.20-5.50); Red Cell Distribution Width 12.3 % (11.0-16.0); SCAN SMEAR FLAG 1; White Blood Count 11.2 X10*3/uL (4.8-10.8)
[2025-01-31 06:48] LABS: Anion Gap 14 (12-20); Blood Urea Nitrogen 8 mg/dL (9-16); Calcium 9.3 mg/dL (8.4-10.2); Carbon Dioxide 21 mmol/L (22-29); Chloride 105 mmol/L (96-108); Creatinine Clr Calc Pharmacy 152.2; Estimated Glomerular Filt Rate > 60; Glucose Random 106 mg/dL (60-115); Potassium 4.1 mmol/L (3.3-5.1); Sodium 136 mmol/L (135-145)
[2025-01-31] MEDS: Famotidine/PF 20 MG/2 ML VIAL IVPUSH (07:12)
[2025-01-31 07:14] LABS: SLIDE REVIEW VERIFIED
[2025-01-31 07:44] VITALS: BP 120/61; PULSE 82; RESP 16; TEMP 36.6; O2SAT 96
--- NOTE | 2025-01-31 08:46 | MHC.CM.PN ---
CM MET WITH PT AT BEDSIDE. PT LIVES WITH FAMILY AND FUNCTIONALLY INDEPENDENT. NO SERVICES. DECLINES COMPLETION OF A HCP AT THIS TIME. PCP DR. PAK AT [facility] [place]. DP: PT HAS BEEN MEDICALLY CLEARED FOR DC HOME, NO SERVICES. PT HAS OWN RIDE HOME.
== END 2025-01-31 09:25 | disposition home or self-care (01) | DRG 403 ==
LOC: HO.SSSA 10:58 → HO.S3 15:03
PROVIDERS: Nurse Practitioner; Physician Assistant Surgical; Admitting Provider Surgery; PCP Internal Medicine; Visit Provider Surgery
PROC: 0DB64Z3 Excision of Stomach, Percutaneous Endoscopic Approach, Vertical (ICD-10-PCS; CPT 43845; principal; 2025-01-30 12:30)
DX: E66.01 Morbid (severe) obesity due to excess calories (principal); M54.50 Low back pain, unspecified; Z68.41 Body mass index [BMI] 40.0-44.9, adult; Z79.899 Other long term (current) drug therapy
CPT/HCPCS: 36415; 80048; 80053; 80061; 81025; 83036; 83525; 84443; 85014; 85018; 85025; 85610; 85730; 86140; 86850; 86900; 86901; 88304; 88305; 88307; 88342; A4649; C9145; J0131; J0690; J1100; J1308; J2003; J2250; J2371; J2405; J2704; J2795; J3010; J7120

== ENCOUNTER → 2025-01-30 10:56 | Outpatient (BNV) | payer OTHER, SELFPAY | PROVIDERS: Admitting Provider Surgery; PCP Internal Medicine; Visit Provider Surgery | DX: E66.01 Morbid (severe) obesity due to excess calories (principal); E66.813 Obesity, class 3; Z68.41 Body mass index [BMI] 40.0-44.9, adult | CPT/HCPCS: 43659; 43775; 99024; 99499 ==

== ENCOUNTER 2025-02-06 10:09 | Outpatient (AMB) | payer OTHER, SELFPAY ==
--- NOTE | 2025-02-06 10:15 | MHC.OFFVISWM ---
VS Expanded 02/06/25 10:23 BP 114/53 L Blood Pressure Location Rt brachial Blood Pressure Position Sitting Pulse 72 Pulse Source Pulse Oximeter Temp 97.8 F Temperature Source Temporal Artery Scan Pulse Oximetry 99 Oxygen Delivery Method Room Air Height 4 ft 11 in Weight 184 lb 6.4 oz BMI 37.2 Body Fat % 39.2 Body Fat Mass 72.4 Fat Free Mass 112.0 Visceral Fat Rating 8.0 Body Water % 43.8 Body Water Mass 80.6 Muscle Mass/Score 106.2 Basal Metabolic Rate/Score 1,592 Intake Visit Reasons: OV PO LSG 01/30/2025 Allergies No Known Allergies Allergy (Verified 02/06/25 10:24) HPI Comments Details: Patient is a pleasant 24-year-old female who returns to the office today in follow-up. She is approximately 7 days post sleeve gastrectomy performed on 01/30/2025. She is using premier protein ready to drink shakes. Three premier protein ready to drink shakes, 8 oz each. She is having approximately 40-50 oz of fluids per day. No complaints of pain. [facility] Medical History (Updated 02/01/25 @ 00:03 by Hafsa Williamson) Hyperpigmentation of skin Skin lesion of lower extremity delivery delivered Vitamin D deficiency Morbid obesity Lumbago Breast asymmetry in female Large breasts Surgical History (Updated 02/06/25 @ 10:25 by Xin Becker CMA) Status post sleeve gastrectomy History of esophagogastroduodenoscopy (EGD) History of excision of lesion History of Family History Father Diabetes Hypertension Paternal Grandfather Hypertension Substance use disorder Mother Hypertension Asthma Hyperparathyroidism Hypothyroid Bipolar disorder Maternal Grandfather Substance use disorder Maternal Grandmother Substance use disorder Paternal Grandmother Substance use disorder Social History Household Members: Significant Other and Children Housing: Apartment Are you a primary home care coordinator to a significant other at home: No Do you presently have visiting nurse or other home services: No Alcohol intake: never Patient Tobacco Use Status: Never used Tobacco e-Cigarette/Vaping Use: Never Used Substance Use Type: Marijuana service: No Current occupational status: unemployed Cognitive needs: No Hearing needs: No Vision needs: Yes Physical Exam Vital Signs: Last Vital Signs Temp 97.8 F 02/06/25 10:23 Pulse 72 02/06/25 10:23 BP 114/53 L 02/06/25 10:23 Pulse Ox 99 02/06/25 10:23 Oxygen Delivery Method Room Air 02/06/25 10:23 BMI result Body Mass Index 37.2 GI Inspection: Yes incision (Clean, dry, intact.) Assessment & Plan Assessment & Plan (1) Status post sleeve gastrectomy: Code(s): Z90.3 - Acquired absence of stomach [part of] Category: Surgical Plan: POD 7 s/p LSG on 01/30/[address] East Weight loss prior to surgery was 21.3 pounds or 9.7 % TBWL. Original weight on 12/12/2024 was 217.7 pounds and op weight was 196.4 pounds. Be sure to text Dr East exactly 1 week after surgery your weight from your home scale so he can adjust your meal plan. Continue meal plan until f/u yogi Call in 2 weeks May shower, no submersion in bath for another week Continue abdominal binder with activity and exercise for the next 2 weeks. Exercise prior to surgery was treadmill and may resume No abdominal exercises for 6 weeks post operatively Will be emailed link to post op video for review Reminded of the pace of drinking, 2 mL per minute, 1 oz/15 min.
[2025-02-06 10:23] VITALS: BP 114/53; PULSE 72; TEMP 36.6; O2SAT 99; BMI 37.2
== END 2025-02-06 10:48 | disposition home or self-care (01) ==
PROVIDERS: PCP Internal Medicine; Visit Provider Physician Assistant Surgical
DX: Z90.3 Acquired absence of stomach [part of] (principal)
CPT/HCPCS: 99024

== ENCOUNTER → 2025-02-06 10:09 | Outpatient (BNVA) | payer OTHER, SELFPAY | PROVIDERS: PCP Internal Medicine; Visit Provider Physician Assistant Surgical | DX: E66.01 Morbid (severe) obesity due to excess calories (principal); Z68.37 Body mass index [BMI] 37.0-37.9, adult; Z90.3 Acquired absence of stomach [part of] | CPT/HCPCS: 99212 ==

== ENCOUNTER 2025-03-01 14:40 | Outpatient (AMB) | payer OTHER, SELFPAY ==
--- NOTE | 2025-03-01 14:51 | A.OFFVIS_ITS ---
VS Expanded 03/01/25 15:04 BP 119/57 L Blood Pressure Location Rt brachial Blood Pressure Position Sitting Pulse 93 Pulse Source Pulse Oximeter Temp 97.7 F Temperature Source Temporal Artery Scan Pulse Oximetry 98 Oxygen Delivery Method Room Air Height 4 ft 11 in Weight 172 lb 9.6 oz BMI 34.9 Body Fat % 34.4 Body Fat Mass 59.4 Fat Free Mass 113.0 Visceral Fat Rating 6.0 Body Water % 47.2 Body Water Mass 81.4 Muscle Mass/Score 107.4 Intake Visit Reasons: OV PO LSG 01/30/2025 Senior Design Engineering Specialist Required: Yes Senior Design Engineering Specialist Name: [id number] Allergies No Known Allergies Allergy (Verified 02/06/25 10:24) Medication List - Last Reconciled 03/01/25 by EZE Morneo pantoprazole 40 mg PO DAILY sucralfate 10 mL PO BID HPI Comments Details: This?a?24?yo female who is s/p LSG without hiatal hernia repair on?01/30/2025. Presents for 1 month post op visit. Weight today is 172.6 pounds, with a BMI of 34.8. There has been a 45.1 pound weight loss,(initial weight 217.7 pounds) since starting the program on 12/12/2024 reflecting a 20.7 % total body weight loss and a weight loss of 23.8 pounds since surgery (operative weight 196.4 pounds) reflecting a 12.1 % TBWL since surgery. No complaints of nausea, emesis, abdominal pain or reflux. Reports infrequent but normal bowel movements every 6-7 days and uses stool softeners regularly. Reports left abdominal pain with sitting and complains of constipation. She spoke w Dr Hill and was told to get MOM and fiber. Present meal plan includes: RTD premier protein 8 oz at 8-11, another shake 4 oz shake and 4 oz almond milk 2-4 fit crunch bar 5-8 Drinking 32 oz water ? Exercise routine includes: treadmill 5 days per week, 250-300 michael [facility] Medical History (Updated 03/01/25 @ 15:31 by EZE Moreno) Hyperpigmentation of skin Skin lesion of lower extremity delivery delivered Vitamin D deficiency Morbid obesity Lumbago Breast asymmetry in female Large breasts Surgical History (Updated 02/06/25 @ 10:25 by Xin Becker CMA) Status post sleeve gastrectomy History of esophagogastroduodenoscopy (EGD) History of excision of lesion History of Family History Father Diabetes Hypertension Paternal Grandfather Hypertension Substance use disorder Mother Hypertension Asthma Hyperparathyroidism Hypothyroid Bipolar disorder Maternal Grandfather Substance use disorder Maternal Grandmother Substance use disorder Paternal Grandmother Substance use disorder Social History Household Members: Significant Other and Children Housing: Apartment Are you a primary wound care physician to a significant other at home: No Do you presently have visiting nurse or other home services: No Alcohol intake: never Patient Tobacco Use Status: Never used Tobacco e-Cigarette/Vaping Use: Never Used Substance Use Type: Marijuana service: No Current occupational status: unemployed Cognitive needs: No Hearing needs: No Vision needs: Yes Physical Exam Vital Signs: Last Vital Signs Temp 97.7 F 03/01/25 15:04 Pulse 93 03/01/25 15:04 BP 119/57 L 03/01/25 15:04 Pulse Ox 98 03/01/25 15:04 Oxygen Delivery Method Room Air 03/01/25 15:04 BMI result Body Mass Index 34.9 Const General: healthy appearing and no acute distress Resp Effort & Inspection: normal respiratory effort Auscultation: clear to auscultation bilaterally Cardio Rate: regular rate Rhythm: regular rhythm GI Auscultation: normal bowel sounds Extrem General: Yes normal to inspection Assessment & Plan Assessment & Plan (1) Status post sleeve gastrectomy: Code(s): Z90.3 - Acquired absence of stomach [part of] Category: Surgical Plan: Overall, patient is doing fairly well. She has encouraged to drink more fluids. Additionally, encouraged to increase her exercise, burning 400 calories per session, 5 days per week. She certainly may increase to 6 days per week. She will continue to communicate with Dr. East and we will have her return to the office in approximately 1 month. (2) Constipation: Code(s): K59.00 - Constipation, unspecified Category: Medical Plan: Continue recommendations given to her by Dr. East. Additionally, I will order Dulcolax suppository VA x1 today with repeat tomorrow if no results. Medications: New bisacodyl (Dulcolax (bisacodyl)) 10 mg VA DAILY PRN 12 ea 0RF constipation
[2025-03-01 15:04] VITALS: BP 119/57; PULSE 93; TEMP 36.5; O2SAT 98; BMI 34.9
== END 2025-03-01 15:32 | disposition home or self-care (01) ==
LOC: HO.HBS 14:41
PROVIDERS: PCP Internal Medicine; Visit Provider Physician Assistant Surgical
DX: K59.00 Constipation, unspecified (principal); Z90.3 Acquired absence of stomach [part of]; Z98.84 Bariatric surgery status
CPT/HCPCS: 99024

== ENCOUNTER → 2025-03-01 14:40 | Outpatient (BNVA) | payer OTHER, SELFPAY | PROVIDERS: PCP Internal Medicine; Visit Provider Physician Assistant Surgical | DX: Z48.815 Encounter for surgical aftercare following surgery on the digestive system (principal); K59.00 Constipation, unspecified; Z90.3 Acquired absence of stomach [part of]; Z98.84 Bariatric surgery status | CPT/HCPCS: 99212 ==

== ENCOUNTER 2025-03-16 10:38 | Outpatient (AMB) | payer OTHER, SELFPAY ==
--- NOTE | 2025-03-16 10:30 | A.OFFWM_ITS ---
Intake Intake Visit Reasons: TV PO LSG 01/30/2025 Allergies No Known Allergies Allergy (Verified 05/09/25 13:03) PFSH Medical History Hyperpigmentation of skin Skin lesion of lower extremity delivery delivered Vitamin D deficiency Morbid obesity Lumbago Breast asymmetry in female Large breasts Surgical History Status post sleeve gastrectomy History of esophagogastroduodenoscopy (EGD) History of excision of lesion History of Family History Father Diabetes Hypertension Paternal Grandfather Hypertension Substance use disorder Mother Hypertension Asthma Hyperparathyroidism Hypothyroid Bipolar disorder Maternal Grandfather Substance use disorder Maternal Grandmother Substance use disorder Paternal Grandmother Substance use disorder Social History Household Members: Significant Other and Children Housing: Apartment Are you a primary wild animal caretaker to a significant other at home: No Do you presently have visiting nurse or other home services: No Alcohol intake: never Patient Tobacco Use Status: Never used Tobacco e-Cigarette/Vaping Use: Never Used Substance Use Type: Marijuana service: No Current occupational status: unemployed Cognitive needs: No Hearing needs: No Vision needs: Yes Behavioral Health Assessment Weight Management Therapy Therapy Notes Details Subjective: The patient underwent weight loss surgery on 01/30/2025. Her weight on the day of surgery was 197 lbs; as of 03/13/2025, her weight is 174 lbs. She reports a recent weight gain of 4 lbs, attributing this to stress-eating and consuming foods outside of her recommended plan. The patient states her mood was stable until she started a new, stressful job. Over the past two weeks, increased stress led to episodes of eating sweets not included in her dietary plan. She has since decided to resign from the job, recognizing its negative impact on her emotional well-being and eating behaviors. Objective: The patient presented for a behavioral health post-operative follow-up visit. During the session, a guided emotional check-in was conducted to assess her current functioning, recovery progress, mood, and emotional state. Psychoeducation was provided regarding the emotional and psychological adjustments commonly experienced after bariatric surgery. The discussion focused on helping her distinguish between physical hunger and emotional cravings, exploring potential triggers for stress-related eating, and developing strategies to address these behaviors. Mindfulness techniques were introduced to enhance her awareness of both physical and emotional needs, particularly during periods of increased stress. The importance of adhering to the Weight Management Program (WMP) guidelines?including meal timing, pacing of fluid intake, and exercise?was emphasized. Additionally, long-term success strategies and available program resources were reviewed, and the patient was encouraged to join the program?s Facebook group for ongoing support and engagement. Assessment/Response: * Mental status: WNL * Risk reported/identified: None Assessment & Plan Assessment & Plan (1) Adjustment disorder: Code(s): F43.20 - Adjustment disorder, unspecified (2) Status post bariatric surgery: Code(s): Z98.84 - Bariatric surgery status Plan -Continue to address emotional and stress-related eating patterns -Ongoing support and psychoeducation regarding post-surgical behavioral health and weight management. * Next appointment scheduled for 04/05/2025 at 10:00 am Telehealth Telehealth Telehealth Platform: [employer] Location of provider rendering services: other (Home office. [place], [place]) Location of patient: address on file Patient Identification confirmed using: Name, : Yes Telehealth method: video Patient verbally consented to treatment: Yes Patient verbally consented to billing insurance company: Yes Patient informed of any privacy concerns related to visit: Yes Minutes spent on Phone/Video with Pt.: 45 Coding Level of Care Code Established Pt Tele Psytx 45 mins ([id number]) Patient Type Established Diagnoses Adjustment disorder F43.20 Status post bariatric surgery Z98.84 Time Spent (min) 45
== END 2025-03-16 11:07 | disposition home or self-care (01) ==
LOC: HO.HBST 10:38
PROVIDERS: PCP Internal Medicine; Visit Provider Counselor Mental Health
DX: F43.20 Adjustment disorder, unspecified (principal); Z98.84 Bariatric surgery status
CPT/HCPCS: 90834

== ENCOUNTER 2025-04-05 10:17 | Outpatient (AMB) | payer OTHER, SELFPAY ==
--- NOTE | 2025-04-05 10:10 | A.OFFWM_ITS ---
Intake Intake Visit Reasons: VIDEO PO LSG 01/30/2025 Allergies No Known Allergies Allergy (Verified 02/06/25 10:24) [facility] Medical History (Updated 03/01/25 @ 15:31 by EZE Moreno) Hyperpigmentation of skin Skin lesion of lower extremity delivery delivered Vitamin D deficiency Morbid obesity Lumbago Breast asymmetry in female Large breasts Surgical History (Updated 02/06/25 @ 10:25 by Xni Becker CMA) Status post sleeve gastrectomy History of esophagogastroduodenoscopy (EGD) History of excision of lesion History of Family History Father Diabetes Hypertension Paternal Grandfather Hypertension Substance use disorder Mother Hypertension Asthma Hyperparathyroidism Hypothyroid Bipolar disorder Maternal Grandfather Substance use disorder Maternal Grandmother Substance use disorder Paternal Grandmother Substance use disorder Social History Household Members: Significant Other and Children Housing: Apartment Are you a primary pediatric critical care nurse to a significant other at home: No Do you presently have visiting nurse or other home services: No Alcohol intake: never Patient Tobacco Use Status: Never used Tobacco e-Cigarette/Vaping Use: Never Used Substance Use Type: Marijuana service: No Current occupational status: unemployed Cognitive needs: No Hearing needs: No Vision needs: Yes Behavioral Health Assessment Weight Management Therapy Therapy Notes Details Subjective: The patient is a 31-year-old female presenting for a post-operative follow-up via telehealth as part of her surgical weight loss program. She reports generally doing well but notes difficulty adhering to her meal plan due to work demands and her daily routine. She describes poor sleep, particularly on workdays when she wakes up late, resulting in delayed meal timing and skipping 1?2 meal replacements on those days. She expresses concern about maintaining her progress during an upcoming vacation to [place]. Objective: PT presents for a post-op f/up visit via Telehealth . Discussed functioning and reflected insightfully on recent behaviors contributing to lapses in her meal plan and the re-emergence of old habits. Discussed strategies for improved organization, including use of her behavioral health plan to structure her days, prevent skipped meals, and increase physical activity. Explored strategies and contingency planning for maintaining her regimen during her upcoming trip. CBT-based interventions used in today's session. Assessment/Response: * Mental status: Alert and oriented x3, cooperative, mood mildly anxious regarding upcoming travel, affect congruent, thought process logical and goal- directed, no evidence of psychosis or cognitive impairment. * Risk reported/identified: none Food/Weight/Diet Expectations of change WLS 01/30/2025. surgery day weight: 197Lbs 04/05/25 PO Weight: 168Lbs (been at this weight the last 2 weeks) PT is implementing the following: Current meal plan: 2 shakes, 2 bars (fit crunch) and 1 meal (2FT/2FT) Exercise plan: treadmill Scale: Yes. Communication with the provider: Yes. T Assessment & Plan Assessment & Plan (1) Adjustment disorder: Code(s): F43.20 - Adjustment disorder, unspecified (2) Status post bariatric surgery: Code(s): Z98.84 - Bariatric surgery status Plan Continue current meal plan with emphasis on consistency, even on workdays. Utilize behavioral health strategies to improve daily structure. Develop a specific plan for maintaining healthy habits during vacation, including meal planning and activity scheduling. * Follow up in 1 month: 05/03/2025 at 10:00 AM via video. [facility]health [facility] Location of provider rendering services: other (Home office. [place], [place]) Location of patient: address on file Patient Identification confirmed using: Name, : Yes Telehealth method: video Patient verbally consented to treatment: Yes Patient verbally consented to billing insurance company: Yes Patient informed of any privacy concerns related to visit: Yes Minutes spent on Phone/Video with Pt.: 50 Coding Level of Care Code Established Pt Tele Psytx 45 mins (15751) Patient Type Established Diagnoses Adjustment disorder F43.20 Status post bariatric surgery Z98.84 Time Spent (min) 50
== END 2025-04-05 11:26 | disposition home or self-care (01) ==
LOC: HO.HBST 10:17
PROVIDERS: PCP Internal Medicine; Visit Provider Counselor Mental Health
DX: F43.20 Adjustment disorder, unspecified (principal); Z98.84 Bariatric surgery status
CPT/HCPCS: 90834

== ENCOUNTER 2025-04-06 13:33 | Outpatient (AMB) | payer OTHER, SELFPAY ==
--- NOTE | 2025-04-06 13:37 | A.OFFVIS_ITS ---
VS Expanded 04/06/25 13:46 BP 111/58 L Blood Pressure Location Rt brachial Blood Pressure Position Sitting Pulse 77 Pulse Source Pulse Oximeter Temp 97.3 F Temperature Source Temporal Artery Scan Pulse Oximetry 100 Oxygen Delivery Method Room Air Height 4 ft 11 in Weight 169 lb 12.8 oz BMI 34.3 Body Fat % 33.1 Body Fat Mass 56.2 Fat Free Mass 113.6 Visceral Fat Rating 6.0 Body Water % 48.1 Body Water Mass 81.6 Muscle Mass/Score 107.8 Basal Metabolic Rate/Score 1,583 Intake Visit Reasons: OV PO LSG 01/30/2025 Machine Tool Electrician Required: Yes Machine Tool Electrician Services: Machine Tool Electrician Present Machine Tool Electrician Name: hospital cmi Allergies No Known Allergies Allergy (Verified 04/06/25 13:48) Medication List - Last Reconciled 04/06/25 by EZE Moreno bisacodyl (Dulcolax (bisacodyl)) [address] DAILY PRN pantoprazole 40 mg PO DAILY sucralfate 10 mL PO BID HPI Comments Details: This?a?24?yo female who is s/p LSG without hiatal hernia repair on?01/30/2025. Presents for 2 month post op visit. Weight today is 169.8 pounds, with a BMI of 34.3. There has been a 47.9 pound weight loss,(initial weight 217.7 pounds) since starting the program on 12/12/2024 reflecting a 22 % total body weight loss and a weight loss of 26.6 pounds since surgery (operative weight 196.4 pounds) reflecting a 13.5 % TBWL since surgery. No complaints of nausea, emesis, abdominal pain or reflux. Reports infrequent but normal bowel movements every 6- 7 days and uses stool softeners regularly. taking bariatric mvi in the morning after first shake She states that since the last visit, she has been eating things that were not recommended and this was the reason for her minimal weight loss. She states she was eating candy and ice cream and mashed potatoes. Present meal plan includes: RTD premier protein 4 oz w 4 oz almond milk at 8-10, another shake 4 oz shake and 4 oz almond milk 2-4 fit crunch bar 11-1, 7-9 meal at 5 pm 3 forks protein and 3 forks veg Drinking 48 oz water ? Exercise routine includes: last week, no gym due to no childcare treadmill trying to go 7 days but not doing this, 5 days more realistic for her, 300 michael PFSH Medical History (Updated 03/01/25 @ 15:31 by EZE Moreno) Hyperpigmentation of skin Skin lesion of lower extremity delivery delivered Vitamin D deficiency Morbid obesity Lumbago Breast asymmetry in female Large breasts Surgical History (Updated 02/06/25 @ 10:25 by Xin Becker CMA) Status post sleeve gastrectomy History of esophagogastroduodenoscopy (EGD) History of excision of lesion History of Family History Father Diabetes Hypertension Paternal Grandfather Hypertension Substance use disorder Mother Hypertension Asthma Hyperparathyroidism Hypothyroid Bipolar disorder Maternal Grandfather Substance use disorder Maternal Grandmother Substance use disorder Paternal Grandmother Substance use disorder Social History Household Members: Significant Other and Children Housing: Apartment Are you a primary healthcare risk control consultant to a significant other at home: No Do you presently have visiting nurse or other home services: No Alcohol intake: never Patient Tobacco Use Status: Never used Tobacco e-Cigarette/Vaping Use: Never Used Substance Use Type: Marijuana service: No Current occupational status: unemployed Cognitive needs: No Hearing needs: No Vision needs: Yes Physical Exam Const General: healthy appearing and no acute distress Resp Effort & Inspection: normal respiratory effort Auscultation: clear to auscultation bilaterally Cardio Rate: regular rate Rhythm: regular rhythm GI Auscultation: normal bowel sounds Extrem General: Yes normal to inspection Assessment & Plan Assessment & Plan (1) Status post sleeve gastrectomy: Code(s): Z90.3 - Acquired absence of stomach [part of] Category: Surgical Plan: Discussed the critical nature of following the meal plan exactly. She states that she would like to switch to a different bar, she will discuss this with Dr. East. Additionally, she is not exercising nearly enough. Discussed the goal of 2000 calories per week burned. She states that she will likely be able to go 5 days per week, discussed 400 calories or more per day burned at the gym. Her constipation has resolved with the addition of fiber in her meal plan. Encouraged to continue to communicate weekly. Return to clinic 1 month
[2025-04-06 13:46] VITALS: BP 111/58; PULSE 77; TEMP 36.3; O2SAT 100; BMI 34.3
== END 2025-04-06 14:01 | disposition home or self-care (01) ==
LOC: HO.HBS 13:34
PROVIDERS: PCP Internal Medicine; Visit Provider Physician Assistant Surgical
DX: Z90.3 Acquired absence of stomach [part of] (principal); Z98.84 Bariatric surgery status
CPT/HCPCS: 99024

== ENCOUNTER → 2025-04-06 13:33 | Outpatient (BNVA) | payer OTHER, SELFPAY | PROVIDERS: PCP Internal Medicine; Visit Provider Physician Assistant Surgical | DX: Z71.3 Dietary counseling and surveillance (principal); Z90.3 Acquired absence of stomach [part of] | CPT/HCPCS: 99212 ==

== ENCOUNTER 2025-05-03 10:13 | Outpatient (AMB) | payer OTHER, SELFPAY ==
--- NOTE | 2025-05-03 10:00 | A.OFFWM_ITS ---
Intake Intake Visit Reasons: VIDEO PO LSG 01/30/2025 Allergies No Known Allergies Allergy (Verified 05/09/25 13:03) [facility] Medical History Hyperpigmentation of skin Skin lesion of lower extremity delivery delivered Vitamin D deficiency Morbid obesity Lumbago Breast asymmetry in female Large breasts Surgical History Status post sleeve gastrectomy History of esophagogastroduodenoscopy (EGD) History of excision of lesion History of Family History Father Diabetes Hypertension Paternal Grandfather Hypertension Substance use disorder Mother Hypertension Asthma Hyperparathyroidism Hypothyroid Bipolar disorder Maternal Grandfather Substance use disorder Maternal Grandmother Substance use disorder Paternal Grandmother Substance use disorder Social History Household Members: Significant Other and Children Housing: Apartment Are you a primary client care representative to a significant other at home: No Do you presently have visiting nurse or other home services: No Alcohol intake: never Patient Tobacco Use Status: Never used Tobacco e-Cigarette/Vaping Use: Never Used Substance Use Type: Marijuana service: No Current occupational status: unemployed Cognitive needs: No Hearing needs: No Vision needs: Yes Behavioral Health Assessment Weight Management Therapy Therapy Notes Details Subjective: Patient reports she recently returned from vacation. She initially gained 2 lbs but subsequently lost it, and her weight has remained stable at 168 lbs over the past month. She describes persistent feelings of hunger despite experiencing physical fullness. She also notes that when she does not plan her meals, she tends to choose quick, less intentional food options. Objective: Patient attended a post-operative follow-up visit via telehealth. We discussed her current functioning and ongoing challenges with weight management. Frustration was validated, and we identified contributing factors to her weight- loss plateau, including skipping planned protein bars, increased snacking, and consuming foods outside of her meal plan. Cognitive-behavioral interventions were introduced, focusing on increasing awareness of automatic thoughts related to hunger and food choices, and challenging unhelpful beliefs about eating. We practiced strategies for mindful eating, meal planning, and identifying triggers for impulsive food decisions. The patient was encouraged to use thought records to track patterns between mood, thoughts, and eating behaviors, and to develop alternative coping strategies for managing urges to eat when not physically hungry. Assessment/Response: * Mental status: Alert and oriented to person, place, and time. Cooperative. Mood is mildly anxious, particularly regarding upcoming travel. Affect is congruent with mood. Thought processes are logical and goal-directed. No evidence of psychosis or cognitive impairment. * Risk reported/identified: none Food/Weight/Diet Expectations of change PT stated the program on 12/12/2024 at 217Lbs WLS 01/30/2025. surgery day weight: 197Lbs 04/05/25 PO Weight: 168Lbs (been at this weight the last 2 weeks) PT is implementing the following: Current meal plan: 2 shakes, 2 bars (fit crunch) and 1 meal (2FT/2FT) Exercise plan: treadmill Scale: Yes. Communication with the provider: Yes. T Assessment & Plan Assessment & Plan (1) Adjustment disorder: Code(s): F43.20 - Adjustment disorder, unspecified (2) Status post bariatric surgery: Code(s): Z98.84 - Bariatric surgery status Plan F/up in 3 weeks. Next heidi: 05/24/25 at 11am, Video Telehealth Telehealth Telehealth Platform: [employer] Location of provider rendering services: other (Home office. [place], [place]) Location of patient: address on file Patient Identification confirmed using: Name, : Yes Patient verbally consented to treatment: Yes Patient verbally consented to billing insurance company: Yes Patient informed of any privacy concerns related to visit: Yes [place] [address] Tele Psytx >53 mins Patient Type Established Diagnoses Adjustment disorder F43.20 Status post bariatric surgery Z98.84 Time Spent (min) 60
== END 2025-05-03 11:08 | disposition home or self-care (01) ==
LOC: HO.HBST 10:13
PROVIDERS: PCP Internal Medicine; Visit Provider Counselor Mental Health
DX: F43.20 Adjustment disorder, unspecified (principal); Z98.84 Bariatric surgery status
CPT/HCPCS: 90837

== ENCOUNTER 2025-05-09 12:59 | Outpatient (AMB) | payer OTHER, SELFPAY ==
[2025-05-09 13:01] VITALS: BP 112/72; PULSE 88; RESP 16; TEMP 36.7; O2SAT 98; BMI 23.4
--- NOTE | 2025-05-09 13:01 | AM.OFFWIN_ITS ---
Intake Vital Signs 05/09/25 13:01 Height 4 ft 11 in Weight 116 lb BMI 23.4 BP 112/72 Blood Pressure Location Lt brachial Position Sitting Respiration 16 Pulse 88 Pulse Source Pulse Oximeter Temp 98.1 F Temp Source Oral Pulse Oximetry (%) 98 Oxygen Delivery Method Room Air Intake Visit Reasons: EP-sinus congestion Patient Tobacco Use Status: Never used Tobacco Allergies No Known Allergies Allergy (Verified 05/09/25 13:03) Medication List - Last Reconciled 05/09/25 by Ashley Davis MD bisacodyl (Dulcolax (bisacodyl)) 10 mg MD DAILY PRN pantoprazole 40 mg PO DAILY sucralfate 10 mL PO BID HPI EP-sinus congestion HPI Details History of Present Illness The patient is a 24 year old female presenting with upper respiratory symptoms. Allergic Reaction: - Developed allergy symptoms approximate ly three days ago before waking up with increased congestion yesterday. - The patient reports no nasal discharge but feels generally congested. - No use of medications to manage the sy mptoms prior to the visit. Cough: - Patient experienced coughing, with no expectorated mucus. - No associated fever reported. Postoperative Management following Bariatric Surgery: - The patient underwent bariatric surger y three months ago. 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 Problem List - Potential upper respiratory infection Patient Instructions - Take Tylenol Cold and Sinus as per adv ice: one tablet every eight hours. - COVID test taken - Consume plenty of fluids. - Take a couple of days off work to juan pedrito. - Watch for symptom improvement within t hree to four days; contact if symptoms worsen or fail to improve. Review of Systems - General: No fever no chills - Neurological: No headaches no dizziness - Ear nose throat: No sore throat no hearing difficulty no ear pain - Cardiovascular: No syncope, no chest pain, no palpitations - Gastrointestinal: No nausea vomiting or diarrhea Physical Exam General: No acute distress HEENT: Congested, sinus non tender, throat erythema without exudate, ears WNL Neck: Supple Respiratory system: Able to talk in full sentences, no audible wheeze Gastrointestinal: No pain Extremities: No new findings GRANULATING BLENDER: Alert awake oriented x3 motor intact Skin: Normal turgor Patient was informed and verbally consented to the use of an ambient scribe for clinic note documentation during this visit. [facility] Medical History Hyperpigmentation of skin Skin lesion of lower extremity delivery delivered Vitamin D deficiency Morbid obesity Lumbago Breast asymmetry in female Large breasts Surgical History Status post sleeve gastrectomy History of esophagogastroduodenoscopy (EGD) History of excision of lesion History of Family History Father Diabetes Hypertension Paternal Grandfather Hypertension Substance use disorder Mother Hypertension Asthma Hyperparathyroidism Hypothyroid Bipolar disorder Maternal Grandfather Substance use disorder Maternal Grandmother Substance use disorder Paternal Grandmother Substance use disorder Social History Household Members: Significant Other and Children Housing: Apartment Are you a primary child care associate to a significant other at home: No Do you presently have visiting nurse or other home services: No Alcohol intake: never Patient Tobacco Use Status: Never used Tobacco e-Cigarette/Vaping Use: Never Used Substance Use Type: Marijuana service: No Current occupational status: unemployed Cognitive needs: No Hearing needs: No Vision needs: Yes Physical Exam Vital Signs: Last Vital Signs Temp 98.1 F 05/09/25 13:01 Pulse 88 05/09/25 13:01 Resp 16 05/09/25 13:01 BP 112/72 05/09/25 13:01 Pulse Ox 98 05/09/25 13:01 Oxygen Delivery Method Room Air 05/09/25 13:01 BMI result Body Mass Index 23.4 Assessment & Plan Assessment & Plan (1) Sinus congestion: Code(s): R09.81 - Nasal congestion Plan History of Present Illness The patient is a 24 year old female presenting with upper respiratory symptoms. Allergic Reaction: - Developed allergy symptoms approximately three days ago before waking up with increased congestion yesterday. - The patient reports no nasal discharge but feels generally congested. - No use of medications to manage the symptoms prior to the visit. Cough: - Patient experienced coughing, with no expectorated mucus. - No associated fever reported. Postoperative Management following Bariatric Surgery: - The patient underwent bariatric surgery three months ago. 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 Problem List - Potential upper respiratory infection Patient Instructions - Take Tylenol Cold and Sinus as per advice: one tablet every eight hours. - COVID test taken - Consume plenty of fluids. - Take a couple of days off work to recover. - Watch for symptom improvement within three to four days; contact if symptoms worsen or fail to improve. Orders: Orders SARS-CoV2/FLU/RSV Today R09.89 - Other specified symptoms and signs involving the circulatory and respiratory systems Coding Level of Care Code Est Pt Level 3 (36410) Diagnoses Sinus congestion R09.81
== END 2025-05-09 13:30 | disposition home or self-care (01) ==
PROVIDERS: PCP Internal Medicine; Visit Provider Internal Medicine
DX: R09.81 Nasal congestion (principal)

== ENCOUNTER 2025-05-09 12:59 | Outpatient (REF) | payer OTHER, SELFPAY ==
[2025-05-09 18:17] LABS: Resp Syncy Virus RNA Qual PCR NEGATIVE (Negative); SARS COV2 PCR INHOUSE NEGATIVE (Negative)
== END 2025-05-09 13:00 | disposition home or self-care (01) ==
LOC: HO.LNP 12:59
PROVIDERS: Internal Medicine; PCP Internal Medicine
DX: R09.81 Nasal congestion (principal); R05.9 Cough, unspecified; Z02.79 Encounter for issue of other medical certificate; Z98.84 Bariatric surgery status
CPT/HCPCS: 87637; 99212

== ENCOUNTER 2025-05-12 12:40 | Outpatient (AMB) | payer OTHER, SELFPAY ==
--- NOTE | 2025-05-12 12:10 | MHC.OFFVISWM ---
VS Expanded 05/12/25 12:14 Height 4 ft 11 in Weight 163 lb 3 oz BMI 33.0 Intake Visit Reasons: TV PO LSG 01/30/2025 Senior Instrumentation Engineer Required: Yes Senior Instrumentation Engineer Name: Thom Monique [id number] Information Interpreted: clinical only Allergies No Known Allergies Allergy (Verified 05/09/25 13:03) Medication List - Last Reconciled 05/12/25 by EZE Stone bisacodyl (Dulcolax (bisacodyl)) 10 mg CO DAILY PRN pantoprazole 40 mg PO DAILY sucralfate 10 mL PO BID HPI Comments Details: This?is a?24?yo F who is s/p LSG 01/30/2025. Presents for 3mo post op visit. Weight at last visit on 04/06/2025 was 169.8 pounds; weight today is 163.3 pounds, representing a 6.5 pound weight loss with a BMI today of 33.? No complaints of nausea, emesis, abdominal pain or reflux, or constipation. Pt reports was traveling on vacation since last visit, felt like weight was stuck. Present meal plan includes: RTD premier protein 4 oz w 4 oz almond milk at 8-10am and 2-4pm fit crunch bar x 1- sometimes yogurt (divided into 2 sessions) if does not have the bar meal at 5 pm 3 forks protein and 3 forks veg Drinking 48 oz water Exercise routine includes: treadmill trying to go 3-4x week for 400 calories PFSH Medical History Hyperpigmentation of skin Skin lesion of lower extremity delivery delivered Vitamin D deficiency Morbid obesity Lumbago Breast asymmetry in female Large breasts Surgical History Status post sleeve gastrectomy History of esophagogastroduodenoscopy (EGD) History of excision of lesion History of Family History Father Diabetes Hypertension Paternal Grandfather Hypertension Substance use disorder Mother Hypertension Asthma Hyperparathyroidism Hypothyroid Bipolar disorder Maternal Grandfather Substance use disorder Maternal Grandmother Substance use disorder Paternal Grandmother Substance use disorder Social History Household Members: Significant Other and Children Housing: Apartment Are you a primary wild animal caretaker to a significant other at home: No Do you presently have visiting nurse or other home services: No Alcohol intake: never Patient Tobacco Use Status: Never used Tobacco e-Cigarette/Vaping Use: Never Used Substance Use Type: Marijuana service: No Current occupational status: unemployed Cognitive needs: No Hearing needs: No Vision needs: Yes Telehealth Telehealth Telehealth Platform: Telephone Location of provider rendering services: other Location of patient: address on file Patient Identification confirmed using: Name, : Yes Telehealth method: voice only Patient verbally consented to treatment: Yes Patient verbally consented to billing insurance company: Yes Patient informed of any privacy concerns related to visit: Yes Minutes spent on Phone/Video with Pt.: 16 Assessment & Plan Assessment & Plan (1) Obesity: Code(s): E66.9 - Obesity, unspecified Category: Medical (2) Status post sleeve gastrectomy: Code(s): Z90.3 - Acquired absence of stomach [part of] Category: Surgical Plan Encouraged pt to increase calorie burn to goal of 2000 michael/week. Continue communication with Dr Hill regarding meal plan. PPI and carafate complete. She is interested in skin removal surgery when she is eligible. RTC 3 months. 30 min phone visit
[2025-05-12 12:14] VITALS: BMI 33.0
== END 2025-05-12 12:41 | disposition home or self-care (01) ==
LOC: HO.HBS 12:40
PROVIDERS: PCP Internal Medicine; Visit Provider Physician Assistant Surgical
DX: E66.9 Obesity, unspecified (principal); Z68.33 Body mass index [BMI] 33.0-33.9, adult; Z90.3 Acquired absence of stomach [part of]; Z98.84 Bariatric surgery status
CPT/HCPCS: 98013

== ENCOUNTER 2025-05-24 13:18 | Outpatient (AMB) | payer OTHER, SELFPAY ==
--- NOTE | 2025-05-24 13:00 | MHC.WMTHER ---
Intake Intake Visit Reasons: VIDEO PO LSG 01/30/2025 Allergies No Known Allergies Allergy (Verified 05/09/25 13:03) [facility] Medical History Hyperpigmentation of skin Skin lesion of lower extremity delivery delivered Vitamin D deficiency Morbid obesity Lumbago Breast asymmetry in female Large breasts Surgical History Status post sleeve gastrectomy History of esophagogastroduodenoscopy (EGD) History of excision of lesion History of Family History Father Diabetes Hypertension Paternal Grandfather Hypertension Substance use disorder Mother Hypertension Asthma Hyperparathyroidism Hypothyroid Bipolar disorder Maternal Grandfather Substance use disorder Maternal Grandmother Substance use disorder Paternal Grandmother Substance use disorder Social History Household Members: Significant Other and Children Housing: Apartment Are you a primary animal care provider to a significant other at home: No Do you presently have visiting nurse or other home services: No Alcohol intake: never Patient Tobacco Use Status: Never used Tobacco e-Cigarette/Vaping Use: Never Used Substance Use Type: Marijuana service: No Current occupational status: unemployed Cognitive needs: No Hearing needs: No Vision needs: Yes Behavioral Health Assessment Weight Management Therapy Therapy Notes Details Subjective: Patient recently started working overnight shifts at [employer]. She reports feeling tired and busy, and notes that she is struggling to adhere to her post-operative plan. This has led to feelings of frustration and stress, as she is striving to achieve a better work-life balance and maintain consistency in her weight-loss journey. Objective: Patient attended a follow-up visit via video. Discussed current functioning, recent changes in routine, and ongoing challenges related to her new work schedule. Utilized CBT and solution-focused interventions to address barriers to adherence and support emotional well-being. Collaboratively developed a behavioral activation plan to help structure meal planning, regular weight checks, and management of other responsibilities. Assessment/Response: Mental status: Alert and oriented x3. Mood is described as ?frustrated? and ?stressed,? but affect is appropriate. Thought processes are logical and coherent. No evidence of psychosis or cognitive impairment. Risk reported/identified: Denies suicidal or homicidal ideation. No acute safety concerns identified. Assessment & Plan Assessment & Plan (1) Adjustment disorder: Code(s): F43.20 - Adjustment disorder, unspecified (2) Status post bariatric surgery: Code(s): Z98.84 - Bariatric surgery status Plan Continue behavioral health support with a focus on maintaining adherence to post-op recommendations and improving work-life balance. Follow-up in 3?4 weeks. Next appointment: 06/15/2025 at , Telehealth/Video. Telehealth Telehealth Telehealth Platform: [employer] Location of provider rendering services: other (Home office. [place], [place]) Location of patient: address on file Patient Identification confirmed using: Name, : Yes Telehealth method: video Patient verbally consented to treatment: Yes Patient verbally consented to billing insurance company: Yes Patient informed of any privacy concerns related to visit: Yes Minutes spent on Phone/Video with Pt.: 60 Coding Level of Care Code Established Pt Tele Psytx >53 mins ([id number]) Patient Type Established Diagnoses Adjustment disorder F43.20 Status post bariatric surgery Z98.84 Time Spent (min) 60
== END 2025-05-24 14:15 | disposition home or self-care (01) ==
LOC: HO.HBST 13:18
PROVIDERS: PCP Internal Medicine; Visit Provider Counselor Mental Health
DX: F43.20 Adjustment disorder, unspecified (principal); Z98.84 Bariatric surgery status
CPT/HCPCS: 90837

== ENCOUNTER 2025-06-15 12:26 | Outpatient (AMB) | payer OTHER, SELFPAY ==
--- NOTE | 2025-06-15 12:15 | A.OFFWM_ITS ---
Intake Intake Visit Reasons: VIDEO PO LSG 01/30/2025 Allergies No Known Allergies Allergy (Verified 05/09/25 13:03) PFS Medical History Hyperpigmentation of skin Skin lesion of lower extremity delivery delivered Vitamin D deficiency Morbid obesity Lumbago Breast asymmetry in female Large breasts Surgical History Status post sleeve gastrectomy History of esophagogastroduodenoscopy (EGD) History of excision of lesion History of Family History Father Diabetes Hypertension Paternal Grandfather Hypertension Substance use disorder Mother Hypertension Asthma Hyperparathyroidism Hypothyroid Bipolar disorder Maternal Grandfather Substance use disorder Maternal Grandmother Substance use disorder Paternal Grandmother Substance use disorder Social History Household Members: Significant Other and Children Housing: Apartment Are you a primary day care attendant to a significant other at home: No Do you presently have visiting nurse or other home services: No Alcohol intake: never Patient Tobacco Use Status: Never used Tobacco e-Cigarette/Vaping Use: Never Used Substance Use Type: Marijuana service: No Current occupational status: unemployed Cognitive needs: No Hearing needs: No Vision needs: Yes Behavioral Health Assessment Weight Management Therapy Therapy Notes Details Subjective: The patient reports her weight has plateaued at 160 lbs over the past two weeks, with a previous weight of 163 lbs three weeks ago. She acknowledges not adhering to her exercise regimen or following the prescribed weight management plan. The patient describes experiencing significant stress related to childcare responsibilities and balancing work with personal life. Objective: The patient attended a post-operative behavioral health appointment via telehealth. Processed functioning, challenges and needs. A solution-focused therapeutic approach was utilized, with emphasis on stress management strategies. The patient was engaged and participated actively in the session. Assessment/Response: * Mental status: Alert and oriented; mood described as stressed but motivated; affect congruent; thought process logical and goal-directed; no evidence of psychosis or cognitive impairment. * Risk reported/identified: None Food/Weight/Diet Expectations of change PT stated the program on 12/12/2024 at 217Lbs WLS 01/30/2025. surgery day weight: 197Lbs 04/05/25 PO Weight: 168Lbs (been at this weight the last 2 weeks) 05/30/2025: 161.2Lbs 06/15/2025 PO: 160Lbs PT is implementing the following: Current meal plan: 2 shakes, 2 bars (fit crunch) and 1 meal (2FT/2FT) Exercise plan: treadmill Scale: Yes. Communication with the provider: Yes. But not consistent. Assessment & Plan Assessment & Plan (1) Adjustment disorder: Code(s): F43.20 - Adjustment disorder, unspecified (2) Status post bariatric surgery: Code(s): Z98.84 - Bariatric surgery status Plan Continue to support stress management and coping strategies. Encourage re-engagement with the prescribed exercise and weight management plan. Follow-up appointment scheduled in 2?3 weeks; next session set for 06/29/2025 at 1:00 PM via video. Telehealth [facility]health [facility] Location of provider rendering services: practice address Location of patient: address on file Patient Identification confirmed using: Name, : Yes Telehealth method: video Patient verbally consented to treatment: Yes Patient verbally consented to billing insurance company: Yes Patient informed of any privacy concerns related to visit: Yes Minutes spent on Phone/Video with Pt.: 45 Coding Level of Care Code Established Pt Tele Psytx 45 mins ([id number]) Patient Type Established Diagnoses Adjustment disorder F43.20 Status post bariatric surgery Z98.84 Time Spent (min) 45 Comment Start time: 12:15pm - end time: 1:00pm
== END 2025-06-15 13:04 | disposition home or self-care (01) ==
LOC: HO.HBST 12:26
PROVIDERS: PCP Internal Medicine; Visit Provider Counselor Mental Health
DX: F43.20 Adjustment disorder, unspecified (principal); Z98.84 Bariatric surgery status
CPT/HCPCS: 90834